=== PATIENT | female | born 1965 | race Asian ===

== ENCOUNTER → 2017-12-29 14:43 | Outpatient (CLI) | payer BC, SELFPAY ==
--- NOTE | 2017-12-29 14:50 | RAD_ITS ---
STUDY: X-RAY - LEFT KNEE REASON FOR EXAM: Female, 52 years old. Left-sided knee pain with swelling. TECHNIQUE: Four view(s) of the knee. COMPARISON: Radiographs of the left knee dated December 29, 2017. FINDINGS: Normal visualized distal femur. Normal visualized proximal tibia and fibula. Normal proximal tibiofibular articulation. There is no demonstrated fracture. There is moderate degenerative arthrosis of the medial femorotibial compartment with moderate joint space narrowing. There is mild degenerative arthrosis of the lateral femorotibial compartment. There is severe degenerative arthrosis of the patellofemoral articulation. There is a soft tissue prominence in the suprapatellar region suggesting a small volume joint effusion. There is mild soft tissue swelling. RAD/Knee 4 or More Views IMPRESSION: Moderately severe degenerative arthropathy of the right knee with small joint effusion. Electronically Signed: Maribell Christianson MD at 9:07 EDT , Service support ,
--- NOTE | 2017-12-29 14:50 | RAD_ITS ---
STUDY: X-RAY - RIGHT KNEE REASON FOR EXAM: Female, 52 years old. Right-sided knee pain and swelling. TECHNIQUE: Four view(s) of the knee. COMPARISON: Radiographs of the left knee dated December 29, 2017. FINDINGS: Normal visualized distal femur. Normal visualized proximal tibia and fibula. Normal proximal tibiofibular articulation. There is no demonstrated fracture. There is moderate degenerative arthrosis of the medial femorotibial compartment with moderate joint space narrowing. There is mild degenerative arthrosis of the lateral femorotibial compartment. There is moderate degenerative arthrosis of the patellofemoral articulation. There is a bone fragment in the suprapatellar bursa measuring approximately 1.5 cm. This may represent intra-articular loose body. There may be small amount of joint effusion. The soft tissue structures are unremarkable. RAD/Knee 4 or More Views IMPRESSION: 1. Moderately severe degenerative arthropathy of the right knee. 2. Probable intra-articular body. Electronically Signed: Maribell Christianson MD at 9:15 EDT , Service support ,
== END ==
PROVIDERS: Family Provider Family Medicine; PCP Family Medicine; Visit Provider Orthopaedic Surgery
DX: M25.561 Pain in right knee (principal); M25.562 Pain in left knee
CPT/HCPCS: 73564

== ENCOUNTER → 2018-12-20 10:30 | Outpatient (CLI) | payer BC, SELFPAY ==
[2018-12-20 10:25] VITALS: BMI 33.3
--- NOTE | 2018-12-20 10:31 | RAD_ITS ---
STUDY: X-RAY - LEFT KNEE REASON FOR EXAM: Female, 53 years old. Left knee pain. TECHNIQUE: 5 view(s) of the knee. COMPARISON: None. FINDINGS: Normal visualized distal femur. Normal visualized proximal tibia and fibula. Normal proximal tibiofibular articulation. There is moderate arthrosis of the medial compartment, mild arthrosis of the lateral compartment and severe arthrosis of the patellofemoral compartment. There is a small effusion with an intra-articular osteochondral body in the suprapatellar pouch measuring approximately 1 cm in widest diameter. The soft tissue structures are unremarkable. RAD/Knee 4 or More Views IMPRESSION: Tricompartmental arthrosis with effusion and intra-articular osteochondral body. Electronically Signed: Fredis Lazo MD at 17:44 EDT , Service support ,
--- NOTE | 2018-12-20 10:31 | RAD_ITS ---
STUDY: X-RAY - RIGHT KNEE REASON FOR EXAM: Female, 53 years old. Right knee pain. TECHNIQUE: 5 view(s) of the knee. COMPARISON: None. FINDINGS: Normal visualized distal femur. Normal visualized proximal tibia and fibula. Normal proximal tibiofibular articulation. There is moderate to severe arthrosis of the medial compartment, mild arthrosis of the lateral compartment and moderate arthrosis of the patellofemoral compartment. There is an intra-articular osteochondral body in the suprapatellar pouch measuring 19 mm in widest diameter. The soft tissue structures are unremarkable. RAD/Knee 4 or More Views IMPRESSION: Tricompartmental arthrosis with intra-articular osteochondral body as described. Electronically Signed: Fredis Lazo MD at 17:46 EDT , Service support ,
[2018-12-20 14:13] LABS: Pathologist Comment May follow
[2018-12-20 14:35] LABS: Synovial Fld Mononuclear WBC % 74.6 %; Synovial Fld Polynuclear WBC # 0.156 10^3/ul; Synovial Fld Polynuclear WBC % 25.4 %
[2018-12-20 15:03] LABS: AUTO B FLUID DILUENT BKGD CT WBC <0.1 RBC <0.01 (W<.1,R<.01)
[2018-12-20 15:05] LABS: Source / Synovial Fluid L KNEE; Source- Body Fluid SYNOVIAL
[2018-12-20 15:06] LABS: Appearance /Synovial Fluid Sl Cl (CLEAR); Color / Synovial Fluid Yellow (Pale Yellow); RBC /Synovial Fluid 223 /mm3 (0)
[2018-12-20 15:24] LABS: Body Fluid QC Type(s) BF1Q,BF2Q,BF3Q; Lymph 12 %; Monocyte /Synovial Fluid 71 %; Neutrophil 11 % (0-25); Plasma Cell /Synovial Fluid 6 %
[2018-12-21 15:22] LABS: GLUCOSE, SYNOVIAL FLUID 103 mg/dL (.); PROTEIN, SYNOVIAL FLUID 3.6 g/dL (.)
[2018-12-22 09:23] LABS: Pathologist Review Reviewed
== END ==
PROVIDERS: Family Provider Family Medicine; PCP Family Medicine; Referring Provider Orthopaedic Surgery; Visit Provider Orthopaedic Surgery
DX: M17.12 Unilateral primary osteoarthritis, left knee (principal); M25.561 Pain in right knee; M25.562 Pain in left knee
CPT/HCPCS: 73564; 82945; 84157; 87070; 87075; 87205; 89050; 89051; 89060

== ENCOUNTER → 2019-11-07 11:28 | Outpatient (CLI) | payer BC, SELFPAY ==
[2018-12-20 10:25] VITALS: BMI 33.3
[2019-11-07 15:16] LABS: Absolute Lymphocyte Count 1.95 X10^3/uL (0.83-4.51); Absolute Neutrophil Count 3.6 X10^3/uL (2.0-7.7); Basophil# 0.03 X10^3/uL; Basophil% 0.5 % (0-1); Eosinophil# 0.26 X10^3/uL; Eosinophils% 4.2 % (0-5); Hematocrit 42.6 % (37-47); Hemoglobin 13.2 g/dL (12.0-15.0); Lymphocyte # 1.95 X10^3/ul (4.0); Lymphocyte % 31.4 % (19-41); Mean Corpuscular Hgb 25.9 pg (27.0-32.0); Mean Corpuscular Volume 83.7 fL (81-99); Mean Platelet Vol. 9.6 fl (6.2-12.0); Monocyte# 0.38 X10^3/uL; Monocyte% 6.1 % (0-10); NRBC Flagged by Analyzer 0 % (0-5); Neutrophil # 3.58 X10^3/uL (2.7-7.7); Neutrophil % 57.6 % (47-70); Platelet Count 282 K/mm3 (150-450); RBC Distribution Width CV 11.9 % (11.6-14.6); Red Blood Count 5.09 M/mm3 (4.2-5.4); White Blood Count 6.2 K/mm3 (4.4-11.0)
[2019-11-07 15:58] LABS: ALB/GLOB Ratio 0.9 RATIO (0.9-2.4); AST(SGOT) 21 U/L (15-37); Alanine Aminotransfer ALT/SGPT 23 U/L (13-56); Albumin, Serum 3.9 g/dL (3.2-5.0); Alkaline Phosphatase 94 U/L (45-117); Anion Gap 5 (5-15); BUN 13 mg/dL (7-18); BUN/Creat Ratio 17.8 RATIO (10-20); Chloride 102 mmol/L (98-107); Cholesterol 184 mg/dL (200); Creatinine, Serum 0.73 mg/dL (0.55-1.02); EST Glomerular Filtration Rate 88 mL/min (>60); Est Glom Filt Rate - Afr Amer 106 mL/min (>60); Globulin 4.3 g/dL (2.2-4.2); Glucose 84 mg/dL (74-106); High Density Lipoprotein 38 mg/dL; Potassium 3.8 mmol/L (3.5-5.1); Protein, Total 8.2 g/dL (6.4-8.2); Sodium Level 137 mmol/L (136-145); Triglycerides 185 mg/dL; Very Low Density Lipoprotein 37 mg/dL (5-40)
== END ==
PROVIDERS: PCP Family Medicine; Referring Provider Dermatology; Visit Provider Dermatology
DX: L30.9 Dermatitis, unspecified (principal)
CPT/HCPCS: 36415; 80053; 80061; 83036; 85025

== ENCOUNTER → 2022-05-12 | Outpatient (CLI) | payer BC, SELFPAY ==
[2022-05-12 11:59] LABS: Basophil# 0.04 X10^3/uL; Basophil% 0.6 % (0-1); Eosinophil# 0.26 X10^3/uL; Eosinophils% 4.2 % (0-5); Hematocrit 42.9 % (37-47); Lymphocyte % 38.6 % (19-41); Mean Corp Hgb Conc 32.6 g/dL (32-36); Mean Corpuscular Hgb 27.9 pg (27.0-32.0); Mean Corpuscular Volume 85.6 fL (81-99); Mean Platelet Vol. 9.6 fl (6.2-12.0); Monocyte# 0.47 X10^3/uL; Monocyte% 7.6 % (0-10); NRBC Flagged by Analyzer 0 % (0-5); Neutrophil # 3.03 X10^3/uL (2.7-7.7); Neutrophil % 48.8 % (47-70); Platelet Count 268 K/mm3 (150-450); RBC Distribution Width SD 37.6 fl (35.1-43.9); Red Blood Count 5.01 M/mm3 (4.2-5.4); White Blood Count 6.2 K/mm3 (4.4-11.0)
[2022-05-12 12:31] LABS: AST(SGOT) 18 U/L (15-37); Alanine Aminotransfer ALT/SGPT 24 U/L (13-56); Albumin, Serum 3.9 g/dL (3.2-5.0); Alkaline Phosphatase 95 U/L (45-117); Anion Gap 7 (5-15); BUN 13 mg/dL (7-18); BUN/Creat Ratio 17.2 RATIO (10-20); Calcium,Total 9.4 mg/dL (8.5-10.1); Chloride 106 mmol/L (98-107); Cholesterol 218 mg/dL (200); Creatinine, Serum 0.76 mg/dL (0.55-1.02); EST Glomerular Filtration Rate 83 mL/min (>60); Est Glom Filt Rate - Afr Amer 101 mL/min (>60); Glucose 81 mg/dL (74-106); High Density Lipoprotein 42 mg/dL; Potassium 3.5 mmol/L (3.5-5.1); Protein, Total 7.9 g/dL (6.4-8.2); Sodium Level 143 mmol/L (136-145); Triglycerides 225 mg/dL; Very Low Density Lipoprotein 45 mg/dL (5-40)
== END | disposition home or self-care (01) ==
LOC: BIMLAB 09:28
PROVIDERS: PCP Family Medicine; Visit Provider Internal Medicine
DX: Z00.00 Encounter for general adult medical examination without abnormal findings (principal)
CPT/HCPCS: 36415; 80053; 80061; 85025

== ENCOUNTER → 2022-10-26 | Outpatient (CLI) | payer BC, SELFPAY ==
[2022-10-30 15:24] LABS: HPV APTIMA, High Risk Negative (Negative)
== END | disposition home or self-care (01) ==
LOC: LABSPEC 12:17
PROVIDERS: PCP Internal Medicine; Referring Provider Nurse Practitioner Women's Health; Visit Provider Nurse Practitioner Women's Health
DX: Z12.4 Encounter for screening for malignant neoplasm of cervix (principal)
CPT/HCPCS: 87624; 88175; G0145

== ENCOUNTER → 2022-11-03 | Outpatient (CLI) | payer BC, SELFPAY ==
--- NOTE | 2022-11-03 10:41 | BI_ITS ---
MAMMOGRAPHY - BILATERAL SCREENING 3-D TOMOSYNTHESIS REASON FOR EXAM: Female, 57 years old. Routine screening PERTINENT HISTORY: No significant family history. TECHNIQUE: 2-D mammograms and 3-D Tomosynthesis of the breast (s) were performed. CAD was performed. COMPARISON: 2017 FINDINGS: The breast composition is composed of scattered fibroglandular density. Scattered benign calcifications are seen. No dense spiculated masses or suspicious microcalcifications are identified. No architectural distortion is identified. There is no skin thickening or retraction. There has been no significant change since the prior study. BI/SCRN MAMM (CAD)W/RODERICK BILAT IMPRESSION: No mammographic signs of malignancy. Routine yearly mammograms recommended. ASSESSMENT CATEGORY: BIRADS Category 1: Negative. A letter regarding these results will be sent to the patient by the facility within 30 days. FOLLOW UP RECOMMENDATION: Yearly follow up mammogram recommended. (A) Approximately 10% of breast cancers are not detected by mammography. A normal mammogram should not delay biopsy of a clinically suspicious abnormality. Electronically Signed: Cristóbal Olivo MD at 11:45 EDT ,
== END | disposition home or self-care (01) ==
LOC: OPBI 10:39
PROVIDERS: PCP Internal Medicine; Visit Provider Internal Medicine
DX: Z12.31 Encounter for screening mammogram for malignant neoplasm of breast (principal)
CPT/HCPCS: 77063; 77067

== ENCOUNTER → 2022-11-09 | Outpatient (CLI) | payer BC, SELFPAY ==
--- NOTE | 2022-11-09 | EMB_PTH ---
PATIENT: JEREMIAS VALENTIN LOC: [facility] #:[id number] AGE/SX: 57/F ROOM: RE11/09/[address]: NAVARRO Bourne : 1965 BED: DIS: 11/09/2022 SPEC #: [id number] RECD: 11/09/22 10:55 STATUS: PRERNA MEJIA #: [id number] AUTUMN: 11/09/22 00:[address]: Tsesa Overton NP DEPT: SURGICAL PATHOLOGY RECD BY: Micheal Menard ENTERED: 11/09/22 10:55 SP TYPE: ENDOM BX/C SUDHAKAR DR: Dr. Anuja Lorenzana MD Tissues: Endometrium, NOS Procedures: Surgery Specimen Level IV HEADER OPERATION: Endometrial biopsy PRE-OP DIAGNOSIS: Endometrial cells on pap TISSUE SUBMITTED: Endometrial lining MICROSCOPIC DIAGNOSIS Endometrial biopsy: Superficial fragments of benign endometrial tissue. Fragments of benign endocervical epithelium and mucous. See comment. SJ:ramin 11/10/2022 COMMENT The specimen predominantly consists of mucous. Correlation with clinical findings and appropriate follow up are necessary. MICROSCOPIC DESCRIPTION Slides are reviewed. GROSS DESCRIPTION Received is one container labeled with the patient's name and not further designated. The specimen consists of multiple irregular fragments of pink-mills soft tissue that in aggregate measure 2.5 x 2.0 x 0.2 cm. The specimen is totally submitted in one cassette. / AM:ramin 11/09/2022 TC:4 CPT: 70722
== END | disposition home or self-care (01) ==
LOC: LABSPEC 10:31
PROVIDERS: PCP Internal Medicine; Visit Provider Nurse Practitioner Women's Health
DX: R87.618 Other abnormal cytological findings on specimens from cervix uteri (principal)
CPT/HCPCS: 88305

== ENCOUNTER → 2022-11-21 | Outpatient (CLI) | payer BC, SELFPAY ==
--- NOTE | 2022-11-21 10:37 | US_ITS ---
EXAM: US PELVIS TRANSABDOMINAL AND TRANSVAGINAL, COMPLETE CLINICAL INDICATION: bleeding TECHNIQUE: Transabdominal and transvaginal pelvic ultrasound was performed with grayscale and color Doppler imaging. Transvaginal imaging was used for better evaluation of the endometrium and adnexa. This report was created using [employer] report [employer] technology. COMPARISON: None. FINDINGS: UTERUS/CERVIX: Very echogenic well circumscribed intramural mass that measures 2 cm in diameter in the posterior body of the uterus. No significant vascularity with Doppler imaging. The uterus measures 9.1 x 8.0 x 4.8 cm. The endometrial stripe measures 0.7 cm in thickness which is abnormal for patient''s age. Anteverted. RIGHT OVARY: Unremarkable. Blood flow is present in the right ovary. The right ovary measures 3.4 x 3.2 x 2.4 cm. LEFT OVARY: Left ovary not visualized. FREE FLUID: None. BLADDER: Unremarkable as visualized. Wall is normal thickness for degree of distention. US/Pelvic (Non ) IMPRESSION: 1. The uterus measures 9.1 x 8.0 x 4.8 cm. The endometrial stripe measures 0.7 cm in thickness which is thickened for patient''s age. Please correlate with menstrual status. If patient is postmenopausal, findings could be due to endometrial hyperplasia or endometrial cancer. Consider gynecology consultation. 2. Very echogenic well circumscribed intramural mass measuring 2 cm in the posterior body of the uterus. 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 A calcified leiomyoma may have this appearance but typically has more shadowing. Consider CT or MR for further evaluation. Electronically Signed: Darren Guzmán MD at 7:35 EDT ,
--- NOTE | 2022-11-21 10:37 | US_ITS ---
EXAM: US PELVIS TRANSABDOMINAL AND TRANSVAGINAL, COMPLETE CLINICAL INDICATION: bleeding TECHNIQUE: Transabdominal and transvaginal pelvic ultrasound was performed with grayscale and color Doppler imaging. Transvaginal imaging was used for better evaluation of the endometrium and adnexa. This report was created using [employer] report [employer] technology. COMPARISON: None. FINDINGS: UTERUS/CERVIX: Very echogenic well circumscribed intramural mass that measures 2 cm in diameter in the posterior body of the uterus. No significant vascularity with Doppler imaging. The uterus measures 9.1 x 8.0 x 4.8 cm. The endometrial stripe measures 0.7 cm in thickness which is abnormal for patient''s age. Anteverted. RIGHT OVARY: Unremarkable. Blood flow is present in the right ovary. The right ovary measures 3.4 x 3.2 x 2.4 cm. LEFT OVARY: Left ovary not visualized. FREE FLUID: None. BLADDER: Unremarkable as visualized. Wall is normal thickness for degree of distention. US/Transvaginal Non- IMPRESSION: 1. The uterus measures 9.1 x 8.0 x 4.8 cm. The endometrial stripe measures 0.7 cm in thickness which is thickened for patient''s age. Please correlate with menstrual status. If patient is postmenopausal, findings could be due to endometrial hyperplasia or endometrial cancer. Consider gynecology consultation. 2. Very echogenic well circumscribed intramural mass measuring 2 cm in the posterior body of the uterus. 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 A calcified leiomyoma may have this appearance but typically has more shadowing. Consider CT or MR for further evaluation. Electronically Signed: Darren Guzmán MD at 7:35 EDT ,
== END | disposition home or self-care (01) ==
LOC: US 10:36
PROVIDERS: PCP Internal Medicine; Referring Provider Nurse Practitioner Women's Health; Visit Provider Nurse Practitioner Women's Health
DX: N95.0 Postmenopausal bleeding (principal)
CPT/HCPCS: 76830; 76856

== ENCOUNTER → 2023-04-20 | Outpatient (CLI) | payer BC, SELFPAY ==
--- NOTE | 2023-04-20 08:22 | CT_ITS ---
STUDY: CT RIGHT KNEE WITHOUT CONTRAST REASON FOR EXAM: Female, 57 years old. Templating for right TKA RADIATION DOSAGE (If Supplied By Facility): CTDIvol = ( 19.15 ) mGy, DLP = ( 1208.55 ) mGycm TECHNIQUE: Transaxial CT imaging of the knee was performed utilizing during replacement protocol with localizing images at the hip and ankle. Coronal and sagittal images were reformatted. Individualized dose optimization techniques were used for this CT. COMPARISON: None. FINDINGS: There is moderate spurring of the medial femoral condyle and medial tibial plateau. There is severe narrowing of the articular joint space of the medial knee compartment. There is moderate spurring of the lateral femoral condyle and lateral tibial plateau. There is mild narrowing of the articular joint space of the lateral knee compartment. Normal proximal tibiofibular articulation. There is moderate joint effusion. There is loose body in the suprapatellar region. There is moderate patellofemoral joint space narrowing and spurring. The quadriceps tendon is grossly normal. The patellar tendon is grossly normal. Normal Hoffa''s fat pad. The soft tissues are unremarkable. CT/Extremity Lower without Contra IMPRESSION: Degenerative change. Joint effusion with loose body. Electronically Signed: Mitchell Monterroso MD at 23:42 EDT ,
== END | disposition home or self-care (01) ==
PROVIDERS: PCP Internal Medicine; Referring Provider Orthopaedic Surgery; Visit Provider Orthopaedic Surgery
DX: M17.11 Unilateral primary osteoarthritis, right knee (principal)
CPT/HCPCS: 73700

== ENCOUNTER 2023-05-04 05:33 | Day surgery (SDC) | payer BC, SELFPAY ==
--- NOTE | 2023-04-27 07:46 | EKG12_ITS ---
Test Reason : PRE OP Blood Pressure : / mmHG Vent. Rate : 068 BPM Atrial Rate : 068 BPM P-R Int : 142 ms QRS Dur : 084 ms QT Int : 358 ms P-R-T Axes : 067 079 064 degrees QTc Int : 380 ms Normal sinus rhythm Septal infarct , age undetermined Abnormal ECG Confirmed by SHAYNA STALLINGS, SAWYER ([id number]), news copy editor ELIN MOORE ([id number]) on 04/30/2023 11:41:34 AM Referred By: Ike Mo Confirmed By:SAWYER CORRAL MD
[2023-04-27 08:53] LABS: Absolute Lymphocyte Count 2.48 X10^3/uL (0.83-4.51); Absolute Neutrophil Count 4.1 X10^3/uL (2.0-7.7); Basophil# 0.04 X10^3/uL; Basophil% 0.5 % (0-1); Eosinophil# 0.28 X10^3/uL; Eosinophils% 3.8 % (0-5); Hematocrit 42.7 % (37-47); Hemoglobin 13.7 g/dL (12.0-15.0); Lymphocyte # 2.48 X10^3/ul (0.83-4.51); Lymphocyte % 33.6 % (19-41); Mean Corp Hgb Conc 32.1 g/dL (32-36); Mean Corpuscular Hgb 27.2 pg (27.0-32.0); Mean Corpuscular Volume 84.7 fL (81-99); Mean Platelet Vol. 8.7 fl (6.2-12.0); Monocyte# 0.45 X10^3/uL; Monocyte% 6.1 % (0-10); NRBC Flagged by Analyzer 0 % (0-5); Neutrophil # 4.11 X10^3/uL (2.7-7.7); Neutrophil % 55.6 % (47-70); Platelet Count 289 K/mm3 (150-450); RBC Distribution Width CV 11.9 % (11.6-14.6); Red Blood Count 5.04 M/mm3 (4.2-5.4); White Blood Count 7.4 K/mm3 (4.4-11.0)
[2023-04-27 09:00] LABS: Prothrombin Time (Protime)PT. 12.7 SECONDS (11.7-14.9)
[2023-04-27 09:01] LABS: Partial Thromboplast Time 27.6 Seconds (24.1-36.2)
[2023-04-27 09:24] LABS: Anion Gap 4 (5-15); BUN 12 mg/dL (7-18); BUN/Creat Ratio 16.4 RATIO (10-20); Calcium,Total 9.1 mg/dL (8.5-10.1); Chloride 106 mmol/L (98-107); Creatinine, Serum 0.73 mg/dL (0.55-1.02); EST Glomerular Filtration Rate 86 mL/min (>60); Est Glom Filt Rate - Afr Amer 105 mL/min (>60); Glucose 109 mg/dL (74-106); Magnesium 2.1 mg/dL (1.6-2.6); Potassium 3.6 mmol/L (3.5-5.1); Sodium Level 140 mmol/L (136-145)
[2023-04-27 11:59] LABS: Hemoglobin A1c 5.8 % (3.8-5.6)
[2023-04-28 04:07] LABS: Fructosamine 233 umol/L (0-285)
[2023-05-04] VITALS (11 sets, daily range): BP systolic 94–140; BP diastolic 57–76; PULSE 61–82; RESP 16–18; TEMP 36.4–36.6; O2SAT 97–100; BMI 34.6
--- NOTE | 2023-05-04 | KNEE_PTH ---
PATIENT: JEREMIAS VALENTIN [place] [facility] [place][id number] AGE/SX: 57/F ROOM: RE05/04/[address]: Dr. Ike Mo DO : 1965 BED: DIS: 05/04/2023 SPEC #: [id number] RECD: 05/04/23 12:30 STATUS: PRERNA RECeasar #: [id number] AUTUMN: 05/04/23 00:[address]: Ike Mo DEPT: SURGICAL PATHOLOGY RECD BY: Micheal Menard ENTERED: 05/04/23 12:30 SP TYPE: TOTAL KNEE OTHR DR: Dr. Anuja Lorenzana MD Tissues: Knee, NOS Procedures: Decalcification bone/plaque Surgery Specimen Level IV HEADER OPERATION: KELVIN, right knee arthroplasty robotic assisted PRE-OP DIAGNOSIS: Right knee degenerative joint disease TISSUE SUBMITTED: Bone and soft tissue right knee MICROSCOPIC DIAGNOSIS Bone and tissue of right knee, total knee resection: Severe degenerative joint disease. AM:ramin 05/07/2023 MICROSCOPIC DESCRIPTION Slides are reviewed. GROSS DESCRIPTION Received is one container designated bone and soft tissue right knee. The specimen consists of multiple fragments of mills-yellow bone measuring in aggregate 10.0 x 8.0 x 3.0 cm. Also in the specimen container are multiple fragments of predominantly fibrocartilaginous tissue measuring in aggregate 8.5 x 4.0 x 1.5 cm. A number of bony fragments contain articular surfaces consistent with tibial plateau and femoral condyle and displaying prominent osteophyte formation, eburnation and bone erosion. Air Grinder sections are submitted in two cassettes as follows: 1 - soft tissue, 2 - bone after decalcification. / SJ:ramin 05/04/2023 TC:5 [facility]: [id number], [id number]
[2023-05-04] MEDS: Magnesium 1 GM over 15 mins IV (06:30)
[2023-05-04 06:34] LABS: Bedside Glucose 224 mg/dL (74-106)
[2023-05-04] MEDS: Lactated Ringers 1,000 ML 15 ML IV (06:40)
[2023-05-04] MEDS: Gabapentin 600 MG Tablet PO (06:41)
[2023-05-04] MEDS: Acetaminophen 500 MG Tablet 1000 MG PO (06:41)
[2023-05-04] MEDS: Scopolamine 1mg/72hr Patch 1 PATCH TD (06:42)
[2023-05-04] MEDS: Insulin Lispro 100 UNIT/ML INSULN.PEN SC (06:44)
--- NOTE | 2023-05-04 07:04 | PCM.HP.BLA ---
History and Physical Date of Admission: 05/04/23 [facility] [address] [place] [address] OFFICE VISIT Date of Service: 04/02/23 MR#: [id number] Acct: [id number] Name: JEREMIAS VALENTIN Rep #: [id number] : 1965 Provider: Dr. Ike Mo DO Age/Sex: 57/F Location[place] [facility] [place] Status: Signed Intake Vital Signs 12/24/2310:11 04/02/2310:58 Height 5 ft 3.5 in 5 ft 3.5 in Weight: 208 lb 208 lb BMI 36.2 36.2 BP 145/85 H Intake Visit Reasons: BL KNEES Chief Complaint: bilateral knee pain Is patient in pain?: Yes (bilateral knees) Pain scale (1-10): 9 Allergies No Known Allergies Allergy (Verified 04/02/23 10:59) Medications glucosamine HCl 500 mg tablet 500 mg PO BID 12/29/17 [History Confirmed 12/24/22] naproxen sodium 220 mg capsule (Aleve) 220 mg PO BID PRN 05/12/22 [History Confirmed 12/24/22] estradiol 0.01% (0.1 mg/gram) vaginal cream See Rx Instructions vaginal .COMPLEX #42.5 grams 11/09/22 [Rx Confirmed 12/24/22] PFSH Medical History Arthritis Colon cancer screening Surgical History H/O: Family History Mother DiabetesBrother DiabetesOther Arthritis Social History household members: spouse housing: house number of children: 2 current occupational status: employed Smoking Status: Never smoker alcohol intake: current alcohol intake frequency: holidays/special occasions only Alcohol type: wine substance use type: does not use what type of physical activity do you participate in: none seatbelt use: always do you feel safe at home: Yes additional social history: MAURICE GAMBLE BL KNEES Chief Complaint: bilateral knee pain Details: Parts of this documentation were recorded by a scribe, this documentation accurately reflects the service provided and the decisions made by me, Dr. Ike Mo, DO 04/02/23 1050. JEREMIAS VALENTIN is a 57 year old F here today for bilateral knee pain. Her left is worse at this time.She had bilateral knee steroid injections 01-01-23 which were effective for about 2 months. She advises her knees continue to pop, click and occasionally will give out. She continues to take aleve, apply ice and bio-freeze to help with pain. Ortho Exam General General: Yes no acute distress Neurologic: Yes alert and Yes oriented x3 Psychologic: Yes reasonable and appropriate Right Knee Skin/Wound: Yes CDI, No erythema, No ecchymosis and No swelling Knee ROM: Yes ROM-Extension -20 to 0 (-10) and Yes ROM-Flexion 0-140 (108) Examination: Yes Med jt line tenderness and Yes Lat jt line tenderness Stability: NML: Anterior Drawer, NML: Posterior Drawer, NML: Valgus 30 and NML: Varus 30 Patella Translation: 1 Left Knee Skin/Wound: Yes CDI, No ecchymosis, No erythema and Yes swelling 1+: Effusion Knee ROM: Yes ROM-Extension -20 to 0 (-8) and Yes ROM-Flexion 0-140 (114) Examination: Yes med jt line tenderness and Yes Lat jt line tenderness Stability: NML: Anterior Drawer, NML: Posterior Drawer, NML: Valgus 30 and NML: Varus 30 Patella Translation: 1 KNEE: good ankle range of motion. no ankle pain. good pulses 2/4 Head: Normocephalic Atraumatic Chest: symmetrical rise, non-labored breathing, no audible wheeze Abdomen: no guarding, non-rigid Supplemental Info 09/30/2020 x-ray bilateral knees advanced tricompartmental knee arthrosis [id number] medial compartment with varus deformity Coding Level of Care Code Off vis,est,level 3 Diagnoses Primary osteoarthritis of left knee M17.12 Osteoarthritis type: primary Primary osteoarthritis of right knee M17.11 Osteoarthritis type: primary Assessment and Plan Assessment and Plan (1) Left knee DJD: Status: Acute Qualifiers: Osteoarthritis type: primary Qualified Code(s): M17.12 - Unilateral primary osteoarthritis, left knee (2) Right knee DJD: Status: Acute Qualifiers: Osteoarthritis type: primary Qualified Code(s): M17.11 - Unilateral primary osteoarthritis, right knee Plan Spoke with the patient about the anatomy of the knee and etiology of her pain. Spoke with her about having osteoarthritis of her knees. Explained her options- viscosupplementation injections vs a total knee arthroplasty. Spoke with the patient about the surgery procedure, risks and recovery. Explained the risk of stiffness and the importance of physical therapy. She might have a mechanical feel post op. Spoke with her about the lengthy time it takes to fully heal and she likely will be happy around 3 months but will take 2 years to fully recover. She will need medical clearance. Spoke with her about the iovera procedure. Explained the procedure helps with the surgery pain and decreases narcotic use post op. She will need a CT scan of her right knee. Risks, benefits and alternatives of surgery reviewed including but not limited to bleeding, infection, nerve, artery and/or tissue damage, fracture, VTE, mechanical feel of the knee, continued pain, stiffness and expected post-operative course. Patient wanted to have the surgery on her right knee. She wanted to have visco injections on her left knee. Follow up for iovera or sooner if pain, swelling, numbness or associated symptoms, or concerns develop. All questions answered. Patient in agreement of plan. 04/02/23 1121 <Electronically signed by Ike Mo DO> Date Ike Mo DO Cosigner Signature: Date (if applicable) CC: ~ I have examined the patient and the H&P has been reviewed. There are no clinical changes since date of exam.
[2023-05-04] MEDS: 0.9% Normal Saline (Pres. free 10 ML Vial (07:23)
[2023-05-04] MEDS: Lactated Ringers 1,000 ML 125 ML IV (07:30)
[2023-05-04] MEDS: Cefazolin 2 GM in 0.9% Normal Saline (100mL Bag) 100 ML IV (07:50)
[2023-05-04] MEDS: TXA 1000mg in NS100 100ml (IVPB at Incision) 660 MG IV (08:00)
[2023-05-04] MEDS: dexAMETHasone 10 MG/ML Vial IV (08:00)
[2023-05-04] MEDS: dexAMETHasone 4 MG/ML Vial (09:23)
[2023-05-04] MEDS: Epinephrine (1 mg/ml) 1 MG/ML VIAL (09:23)
[2023-05-04] MEDS: Bupivacaine 0.5% PF 10 ML VIAL (09:23)
[2023-05-04] MEDS: TXA 1000mg in NS100 100ml (IVPB at Closure) 660 MG IV (09:27)
--- NOTE | 2023-05-04 10:08 | PCM.OP.BLANK ---
Operative Report Date of Procedure: 05/04/23 Preoperative diagnosis: Right knee DJD Postoperative diagnosis: Same Procedure: Right total knee arthroplasty CT guided Robotic Assisted Implant: [place] triathlon press fit, femoral component size 2, tibial baseplate size 3, asymmetric patella size 35, polyethylene X3 size 9 CS Anesthesia: Spinal with adductor canal block Tourniquet time: 15 minutes at 300 mmHg Complications: None Condition: Stable to PACU Estimated blood loss: 200 cc Pneumatic Tube Operator John Warner. My physician triage assistant was a vital part of this case. He was important in appropriate retraction during the case, and protection of soft tissues during procedure. His intimate knowledge of the case and my steps aided in safe and expedient completion of the procedure as well as appropriate position of the extremity during the case. He was also vital in assisting with closure under my direct supervision. Indication for procedure: This is a 57-year-old female with long standing degenerative joint disease of the knee who has failed conservative treatment and wished to proceed with elective total knee arthroplasty. Risk benefits and alternatives were reviewed including; risk of bleeding, infection, nerve artery and tissue damage, continued pain, postoperative stiffness, venous thromboembolism, need for postoperative rehabilitation, mechanical feel to the knee, and expected postoperative course. The pre- operative CT and templating was performed with component sizing. Procedure: The patient was met in the preoperative holding area. The operative extremity was identified by both patient and physician and was marked. Patient was met by anesthesia. An adductor canal block was placed by anesthesia postoperatively the patient was brought back to the operating room on a wheeled cart and transferred to the operating table in the supine position. Anesthesia was started. A well-padded tourniquet was placed on the operative extremity. The patient was prepped and draped in the usual sterile fashion. A timeout was called to ensure the proper patient procedure and extremity were being contemplated. An esmarch was used to exsanguinate the extremity. The tourniquet was inflated. A 10 blade scalpel was used to make a midline incision down through the skin and subcutaneous tissue. Skin retractors placed. Bovie and Aquamantis were used to perform meticulous hemostasis. full-thickness flaps were elevated medial and lateral along the joint capsule. A deep blade scalpel was used to perform a medial parapatellar arthrotomy. The knee was brought to full extension. A bovie was used to release the soft tissues off the most proximal aspect of the medial tibial plateau, a three-quarter inch curved osteotome was also used in this process. The infrapatellar fat pad was excised. The suprapatellar fat pad was excised partially anteriorolateraly and portion the anterioromedial pad was elevated from the femur. At this point our intra-articular femoral array was placed at a 45 degree angle proximal and posterior to the medial epicondyle. femoral checkpoint was placed at this time. Our tibial array was placed greater than 1 hands breath below the incision at a 20 degree angle stab incisions were made with a 15 blade scalpel and pins were placed and attached to the tibial array , tibial checkpoint was placed in the proximal tibial metaphysis. Tourniquet was let down. At this point registration medina were taken throughout the knee . Once the knee was registered we then tensioned the medial and lateral ligaments in extension and 90 degrees of flexion. We then used these numbers to adjust our components within parameters to balance the knee in both flexion and extension once this was done on our monitor we then proceeded with using the robotic arm to make our tibial plateau cut, anterior and posterior chamfer and distal femur cuts. we removed the cut fragments with the use of a bovie and Kayla, we did use a lamina therapy assistant to insure we visualized and removed all posterior osteophytes and at this time also used the Aquamantis on the posterior joint capsule. we then trialed and achieved the desired plan with a well-balanced knee. we used the green probe to harika the corresponding tibial rotation based on our CT template. Lug holes were drilled in the femur the tibia preparation was completed with the appropriate sized base plate pinned based on previous rotation harika. An appropriate sized fin punch was used on the tibia and 4 corner drill was used for the press fit component and the patella was prepared by first using a caliper to ensure sufficient bone stock and a patellar reamer to remove the desired amount of bone. lug holes drilled for an asymmetric poly. We then brought the knee through range of motion with excellent patellar tracking. We thoroughly irrigated the knee. Trial components were removed a posterior capsular injection was preformed with our standard cocktail. In addition the aqua Mantis was also used to aid in hemostasis. Betadine rinse was allowed to sit and washed out completely. Components were press-fit into place. Aricept rinse was then used followed by several more liters of irrigation after it was allowed to sit. The joint capsule was closed with #1 Ethibond [id number]'s followed by Vicryl in the subcutaneous tissues with papito in the skin. Arrays and checkpoints were removed prior to closure all counts were correct stab incisions were closed with a staple standard dressing in the form of Mepilex AG for the main incision and a small Mepilex over the pin holes. Thigh-high EMILY hose applied over top of dressing. Patient tolerated the procedure well and was directed to PACU in stable condition . There were no intraoperative complications.
--- NOTE | 2023-05-04 10:11 | DCINST_ITS ---
Discharge Instructions Diet Discharge Diet: No restrictions (Limit sweets and carbs as high sugar diet can increase risk of infection) Activity Weight Bearing Status: Weight bearing as tolerated Dressing / Incision Call your doctor if you observe: Shortness of breath and Chest pain Additional Dressing/Incision Instructions:: Ice and elevate lower extremities 2 weeks while not ambulating. Ambulation is encouraged. Weight bearing as tolerated. Use assistive devise for stability. Encourage FULL knee extension and flexion 1 time EVERY time you get up and down and MULTIPLE times per day. No showering 72 hours after surgery. Begin showering postop day #3. Remove the dressing prior to shower and gently wash with warm water and antibacterial soap then pat dry and place abdominal pad (or plain gauze) and EMILY hose over top. This is to be done daily. Do not submerge for 3 weeks. If not showering daily after the initial 72 hours then you must clean incision and change dressing daily. Do not allow animals near the incision area. Keep clean. Follow anti- coagulation recommendations as prescribed. Do not take any NSAIDs while on blood thinner. Do not take any additional narcotic pain medication other than what was prescribed on your surgery day without discussing with physician. Narcotic medication can be addictive. Do not drink alcohol while taking narcotics. Supplement narcotic prescription with acetaminophen 1000 mg 4 times a day. Start physical therapy. If you are not currently scheduled for physical therapy or you are unsure of appointment time please call office [facility] to alexandro luis. Call Dr. Mo with any concerns. Follow Up Care Please Follow Up With: Ike Mo DO When: 2 weeks Test Results: Test results from this visit will be discussed in further detail at your follow- up appointment, if applicable. Discharge Plan Admission Primary Reason for Your Visit: Right total knee arthroplasty Attending Provider: Ike oM Primary Care Provider: Anuja Lorenzana Discharge Orders/Prescriptions Prescriptions: New acetaminophen [acetaminophen] 500 mg tablet 1,000 mg PO Q6H PRN Qty: 100 0RF cephalexin [cephalexin] 500 mg capsule 1,000 mg PO Q8 Qty: 4 0RF Rx Instructions: take 2 tabs at 9:00 pm and 2 tabs after 5 am when you wake up Eliquis 2.5 mg tablet 2.5 mg PO BID Qty: 28 0RF oxycodone 5 mg tablet 5 - 10 mg PO Q4H PRN (Reason: pain) 7 Days Qty: 60 0RF Continued glucosamine HCl 500 mg tablet 500 mg tablet 500 mg PO BID triamcinolone acetonide [Kenalog] 40 mg/mL suspension 80 mg INTRAARTIC ONCE Qty: 2 0RF estradiol 0.01 % (0.1 mg/gram) cream See Rx Instructions vaginal .COMPLEX Qty: 42.5 2RF Rx Instructions: small amount as directed vaginal every other day X 4 weeks then twice a week; Discontinued naproxen sodium [Aleve] 220 mg capsule 220 mg PO BID PRN (Reason: pain) Referrals / Follow Up: Anuja Lorenzana MD [Primary Care Provider] - Disposition Disposition (needs filled in before D/C Order can be placed): Home, Self Care
--- NOTE | 2023-05-04 10:50 | RAD_ITS ---
STUDY: X-RAY - RIGHT KNEE REASON FOR EXAM: Female, 57 years old. Postop replacement surgery TECHNIQUE: 2 view(s) of the knee. COMPARISON: 09/30/2020 FINDINGS: Patient is postop from right knee replacement surgery. Components demonstrate anatomic alignment. No plain film evidence of postoperative complication. Normal postoperative soft tissue swelling and subcutaneous emphysema. RAD/Knee 1 or 2 Views IMPRESSION: Replaced right knee joint demonstrates anatomic alignment. No plain film evidence of hardware complication or failure Electronically Signed: Cristóbal Olivo MD at 17:01 EDT ,
[2023-05-04 11:04] LABS: Bedside Glucose 104 mg/dL (74-106)
[2023-05-04] MEDS: Cefazolin 1 GM/50 ML BAG IV (12:30)
[2023-05-04] MEDS: oxyCODONE 5 MG Tablet PO (14:06)
== END 2023-05-04 14:49 | disposition home or self-care (01) ==
LOC: SDC 05:33 → AC 05:33
PROVIDERS: Anesthesiology; PCP Internal Medicine; Referring Provider Orthopaedic Surgery; Visit Provider Orthopaedic Surgery
PROC: 0SRC0JZ Replacement of Right Knee Joint with Synthetic Substitute, Open Approach (ICD-10-PCS; CPT 27447; principal; 2023-05-04 07:45)
DX: M17.0 Bilateral primary osteoarthritis of knee (principal); Z79.01 Long term (current) use of anticoagulants; Z79.899 Other long term (current) drug therapy
CPT/HCPCS: 27447; S2900; 64447; 01402; 36415; 73560; 80048; 82962; 82985; 83036; 83735; 85025; 85610; 85730; 86850; 86900; 86901; 87077; 87081; 88305; 88311; 93005; C1776; J7120; J2405; J3475; J3490

== ENCOUNTER 2023-06-15 13:07 | Day surgery (SDC) | payer BC, SELFPAY ==
[2023-06-15 13:39] VITALS: BP 138/86; PULSE 89; RESP 17; TEMP 37.1; O2SAT 99; BMI 34.2
[2023-06-15] MEDS: Lactated Ringers 1,000 ML 15 ML IV (13:45)
--- NOTE | 2023-06-15 14:36 | PCM.HP.BLA ---
History and Physical Date of Admission: 06/15/23 [facility] [address] [place] [address] OFFICE VISIT Date of Service: 06/14/23 MR#: [id number] Acct: [id number] Name: JEREMIAS VALENTIN Rep #: [id number] : 1965 Provider: Dr. Ike Mo DO Age/Sex: 57/F Location: [facility] Status: Signed Intake Vital Signs 04/02/2310:58 05/04/2306:48 Height 5 ft 3.5 in 5 ft 5 in Intake Visit Reasons: right knee Chief Complaint: R knee post op f/u Is patient in pain?: Yes Pain scale (1-10): 1 Allergies No Known Allergies Allergy (Verified 06/14/23 09:58) Medications glucosamine HCl 500 mg tablet 500 mg PO BID 12/29/17 [History Confirmed 06/14/23] estradiol 0.01% (0.1 mg/gram) vaginal cream See Rx Instructions vaginal .COMPLEX #42.5 grams 11/09/22 [Rx Confirmed 06/14/23] acetaminophen 500 mg tablet 1,000 mg (2 x 500 mg) PO Q6H PRN #100 tabs 05/04/23 [Rx Confirmed 06/14/23] cephalexin 500 mg capsule 1,000 mg (2 x 500 mg) PO Q8 #4 caps 05/04/23 [Rx Confirmed 06/14/23] PFSH Medical History Alcohol use Arthritis Colon cancer screening Heartburn History of edema Leg cramps Non-smoker Post-menopausal Wears glasses Wears partial dentures Surgical History H/O: Hx of total knee arthroplasty Family History Mother DiabetesBrother DiabetesOther Arthritis Social History household members: spouse housing: house number of children: 2 current occupational status: employed Smoking Status: Never smoker alcohol intake: current alcohol intake frequency: holidays/special occasions only Alcohol type: wine substance use type: does not use what type of physical activity do you participate in: none seatbelt use: always do you feel safe at home: Yes additional social history: MAURICE SAVANAH GAMBLE right knee Details: Parts of this documentation were recorded by a scribe, this documentation accurately reflects the service provided and the decisions made by me, Dr. Ike Mo, DO 06/14/23 0819. JEREMIAS VALENTIN is a 57 year old F here today for 6 week f/u from Rt total knee arthroplasty. Pt rates her pain a 2/10 and is only taking Tylenol prior to PT. Pt has 4 more session of physical therapy to get to 120 degres. Ortho Exam General General: Yes no acute distress Neurologic: Yes alert and Yes oriented x3 Psychologic: Yes reasonable and appropriate Right Knee Skin/Wound: No erythema, No ecchymosis and No swelling Knee ROM: No ROM-Extension -20 to 0 (12), No ROM-Flexion 0-140 (80) and Yes ROM-Passive Flexion 0-140 (lacking 10) Stability: NML: Valgus 0, NML: Valgus 30, NML: Varus 0 and NML: Varus 30 Head: Normocephalic Atraumatic Chest: symmetrical rise, non-labored breathing, no audible wheeze Abdomen: no guarding, non-rigid Supplemental Info 06/14/2023 x-ray right knee: Status post press-fit total knee arthroplasty 09/30/2020 x-ray bilateral knees advanced tricompartmental knee arthrosis [id number] medial compartment with varus deformity Coding Level of Care Code Global Post Op Diagnoses Orthopedic aftercare Z47.89 Stiffness of right knee M25.661 Fibrosis of right knee joint M24.661 Laterality: right Other acute postprocedural pain G89.18 Assessment and Plan Assessment and Plan (1) Orthopedic aftercare: Status: Acute (2) Stiffness of right knee: (3) Arthrofibrosis of knee joint: Status: Acute Qualifiers: Laterality: right Qualified Code(s): M24.661 - Ankylosis, right knee (4) Other acute postprocedural pain: Status: Acute Orders: Orders Knee 4 or More Views Today Z47.89 - Encounter for other orthopedic aftercare Plan Patient is 6 weeks out from total knee arthroplasty her pain is doing well however she has not progressed as we would have hoped in terms of her range of motion she is lacking in both flexion and extension. Discussed a manipulation under anesthesia with intra-articular knee injection due to her lack of motion and discussed and pain medication post manipulation. Discussed risks of manipulation including fracture and increased pain. Follow-up 4 weeks postop resume physical therapy immediately after manipulation. Patient states she has enough oxycodone and does not need another prescription at this time follow-up sooner if pain, swelling, numbness or associated symptoms, or concerns develop. All questions answered. Patient in agreement of plan. 06/14/23 1137 <Electronically signed by Ike Mo DO> Date Ike Mo DO Cosigner Signature: Date (if applicable) CC: ~ I have examined the patient and the H&P has been reviewed. There are no clinical changes since date of exam.
[2023-06-15] MEDS: Lidocaine 1% /Epi 1:100 (20ml) 20 ML Vial (14:52)
[2023-06-15] MEDS: MethylPREDNISolone Acetate 40 MG/ML Vial IM (14:52)
[2023-06-15] MEDS: Cefazolin 2 GM in 0.9% Normal Saline (100mL Bag) 100 ML IV (14:52)
--- NOTE | 2023-06-15 14:58 | PCM.OP.BLANK ---
Operative Report Date of Procedure: 06/15/23 Preoperative diagnosis: Arthrofibrosis right knee Postoperative diagnosis: Same Procedure: Manipulation under anesthesia with intra-articular steroid injection Anesthesia: General EBL: None Complications: None Condition: Able to PACU Indication for procedure: This is a 57-year-old female who underwent total knee arthroplasty approximately 6 weeks ago who is failed to gain her range of motion wish to undergo an elective manipulation under anesthesia to increase range of motion. risk benefits and alternatives were reviewed including risk of bleeding infection nerve, artery, bone, tissue damage, blood clot need for further surgery and continued pain. Procedure: Patient was met in the preoperative holding area once again the operative extremity was identified by both patient and physician and was marked. Patient was brought back to the operating room anesthesia was started. A timeout was called into the proper patient procedure and extremity were being contemplated. The pre-operative range of motion was a few degrees of extension and achieving 85 degrees flexion. After patient was adequately anesthetized extension manipulation was performed followed by patellar mobilization followed by gradual flexion scar tissue was palpated being released with no concerning signs for tendon rupture or fracture. Postoperative range of motion was much improved with near full extension and 125 degrees of flexion. Following the manipulation using sterile technique from the superior lateral position an intra-articular injection with 40 mg of depomedrol and 8 cc 0.25%marcaine with epi was injected. bandaid applied
--- NOTE | 2023-06-15 14:59 | DCINST_ITS ---
Discharge Instructions Diet Discharge Diet: No restrictions Dressing / Incision Call your doctor if you observe: Shortness of breath and Chest pain Additional Dressing/Incision Instructions:: Encourage full knee flexion and extension regularly. Start physical therapy immediately. May shower and return to activities as normal. Keep pain controlled with medications as discussed with Dr. Mo in order to keep full range of motion. Call if you need more pain medication. ice and elevate next 72 hours. Follow-up with Dr. Mo and call with any questions or concerns. Follow Up Care When: 4 weeks Test Results: Test results from this visit will be discussed in further detail at your follow- up appointment, if applicable. Discharge Plan Admission Primary Reason for Your Visit: Manipulation under anesthesia of right knee Attending Provider: Ike Mo Primary Care Provider: Anuja Lorenzana Discharge Orders/Prescriptions Prescriptions: No Action oxycodone-acetaminophen 5-325 mg tablet 1 tab PO DAILY PRN (Reason: pain) acetaminophen [acetaminophen] 500 mg tablet 1,000 mg PO Q6H PRN Qty: 100 0RF Referrals / Follow Up: Anuja Lorenzana MD [Primary Care Provider] - Disposition Disposition (needs filled in before D/C Order can be placed): Home, Self Care
[2023-06-15 15:05] VITALS: BP 119/67; BP 138/86; PULSE 72; RESP 16; TEMP 36.6; O2SAT 100
[2023-06-15 15:15] VITALS: BP 130/68; BP 138/86; PULSE 67; RESP 16; O2SAT 99
[2023-06-15 15:30] VITALS: BP 135/72; BP 138/86; PULSE 70; RESP 16; TEMP 36.7; O2SAT 100
[2023-06-15 15:55] VITALS: BP 138/86
== END 2023-06-15 16:06 | disposition home or self-care (01) ==
LOC: SDC 13:08 → AC 13:09
PROVIDERS: PCP Internal Medicine; Referring Provider Orthopaedic Surgery; Visit Provider Orthopaedic Surgery
PROC: (CPT 27570; principal; 2023-06-15 14:45)
DX: M24.661 Ankylosis, right knee (principal)
CPT/HCPCS: 27570; 01380; J7120

== ENCOUNTER 2023-07-07 12:00 | Outpatient (RCR) | payer BC, SELFPAY ==
--- NOTE | 2023-05-11 09:06 | HP.PTEVAL_ITS ---
Patient's Visit Information Visit Information Visit Information: JEREMIAS VALENTIN is a 57 year old F referred to Physical Therapy by Dr. Ike Mo DO with a diagnosis of R TKA DOS: 05/05/23. Date of Evaluation: 05/11/23 Physical Therapist: Khang Coreas DPT Visit Plan Frequency: 2-3x /Week Duration: 6 Weeks Plan: Start with R knee ROm progressing to 0-0-120deg. Add in edema control, qu ad activation. Progress gait to LRD as tolerated. May use VASO and ice as needed for edema. Subjective Subjective: Pt is here today for her initial evaluation with diagnosis of R TKA, DOS: 05/05/23. Pt. reports overall doing well. She reports some tightness and pain in her knee, but no calf pain. No N/T noted, no chest pain or difficulty breathing. Pt. has been using her FWW, icing and elevating at home. Pt. lives with her spouse who can help out. Daughter is here today whom is a nurse and can help a little bit as well. Pt. is walking well, but reports having a bit of a limp. Has not tried stairs at home either. 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 Pt. is sleeping okay. Pt. is hopeful to get back all of her ROM and get back to all recreational/work activities without limitations. Pain R knee: Pain Intensity (Out of 10): 4 Pain Intensity Range: 3 and 8 Objective Objective: POSTURE: Pt has decent posture in stance. She lacks TKE on R side during stance. wt. shift to L side. PALPATION: Pt. has good looking incision, no signs of infection. Pt. has some expected bleeding minimal once bandage was changed. Negative homans signs. Edema: 5cm difference at mid patella, 5 cm difference at 4 inch superior to patella. NEURO: Normal throughout. pt. is able to rise on heels and toes without issues. ROM: R knee: 0-10-89deg. Pain with over pressure but did improve with PT driven stretching. tight HS and hip flexors noted. MMT: LLE 5/5 throughout. RLE: ankle 5/5 throughout; knee: ext 4#, flexion 10#; hip: flexion 1#, abd 1#. GAIT: Pt. ambulates with FWW, she lacks TKE on her RLE, decreased step length bilaterally. STAIRS: step to pattern with 2 HR loading LLE only. Balance/Special Test Scores TUG Test Time Seconds: 76 WOMAC Total Score: 96 WOMAC Percentatge: 0 Goals Goal 1:: LTG: Pt. to be I with HEP. Goal Time Frame: 4-6 Weeks Goal 2:: STG: pt. to have decreased edema in RLE symmetrical to L side. Goal Time Frame: 2 Weeks Goal 3:: STG: Pt. to have increased R knee ROM to atleast 0-0-120deg. Goal Time Frame: 2-4 Weeks Goal 4:: LTG: Pt. to have increased RLE strength to 5/5 throughout allowing for increased stability with all gait and work activities. Goal Time Frame: 4-6 Weeks Goal 5:: LTG: Pt. to have normal gait pattern without use of AD. Goal Time Frame: 4-6 Weeks Goal 6:: LTG: pt. to negotiate steps with1 HR with reciprocal pattern without limitations. Goal Time Frame: 4-6 Weeks Rehabilitation Potential Physical Therapy Diagnosis: Pt. has signs and symptoms consistent with R TKA. Pt. has subsequent hypomobility, weakness, difficulty walking and increased pain. Pt. would benefit from PT to address the above limitations progressing back to all recreational and work activities without limitations. Rehabilitation Potential: Excellent Anticipated Interventions Patient/Client Instruction: Educate patient on: Condition, Plan of Care, Risk Factors and Benefits of Fitness Program For the Purpose of:: To foster healthy habits, To improve decision making, To facilitate caregiver knowledge, To improve self management, To prevent re-injury and To improve ability to perform tasks related to life management Therapeutic Exercise to Include: Strength training, Power training, Endurance training, Balance training, Body mechanics, Flexibilty training, Gait and locomotor training, Passive ROM and Active ROM For the Purpose of:: To decrease pain, To decrease swelling/inflammation, To increase ROM, To improve nutrient delivery to tissue, To increase oxygenation perfusion, To improve muscle performance and motor function, To improve ability to perform ADL's, To increase tolerance to activity/condition/position, To improve performance and independence with ADL's, To improve gait and locomotor functions, To improve health of tissue, To decrease soft tissue restriction and To increase flexibility/ROM Manual Therapy Techniques to Include: Mobilization and Soft tissue mobilization For the Purpose of:: To decrease pain, To decrease swelling/inflammation and To increase ROM Cryotherapy (ice pack, ice massage): Yes Vasopneumatic device: Yes For the Purpose of:: To decrease pain, To decrease swelling/inflammation and To increase ROM Text: Thank you for the opportunity to evaluate your patient. For Medicare and Medicare HMO plans, please review the plan of care and approve it. It will need to be FAXED BACK to us at [phone] for Medicare purposes. For Medicare only, by signing this I certify the plan of care. Please let me know if there are questions or concerns regarding this plan of care. Physician Signature: Date:
--- NOTE | 2023-06-10 08:01 | HP.PTREVAL ---
Re-Evaluation Intro: Dr. Ike Mo, DO, It has been my pleasure to treat JEREMIAS VALENTIN over the last 10 visits for R TKA DOS: 05/05/23. Please see the progress note below for an update on the physical therapy plan of care! Subjective Subjective: Pt. reports overall doing much better than she was. She is taking pain meds sparingly. Pt. does take them pre PT. She is pleased with progressed. 2/10 pain pre treatment. Objective Objective/Function: ROM: AROM 0-3-105deg. PROM: 0-0-111deg. Pt. was tighter into extension today. Pt. reports being HEP compliant. She is still using a FWW. She does have slight decreased step length bilaterally. TU.9sec with FWW. We walked with cane this date. She did well with the pattern, but has marked reduced step length bilaterally, guarded with gait with SPC. Jeremias needs to continue to work no end range of motions. I urged her to be more consistent with end range stretching at home and in PT. I plan to progress cane shortly, but ROM needs to be the focus. Plan Plan Plan: Cont. focus on end range stretching progressing to 0-0-120deg of motion. Progress gait with SPC to normal pattern, emphasize TKE during stance phase and proper knee flexion during swing phase. Add in functional strengthening as tolerated. Use of vaso and ice to reduce edema as well. Balance/Gait/Functional tests Balance/Special Test Scores TUG Test Time Seconds: 76 Tug Test: >30sec.=impaired mobility WOMAC Total Score: 96 WOMAC Percentage: 0 Goals Goals Goal 1:: LTG: Pt. to be I with HEP. Goal Time Frame: 4-6 Weeks Goal Progress: Progressing Goal 2:: STG: pt. to have decreased edema in RLE symmetrical to L side. Goal Time Frame: 2 Weeks Goal Progress: Progressing Goal 3:: STG: Pt. to have increased R knee ROM to atleast 0-0-120deg. Goal Time Frame: 2-4 Weeks Goal Progress: Progressing Goal 4:: LTG: Pt. to have increased RLE strength to 5/5 throughout allowing for increased stability with all gait and work activities. Goal Time Frame: 4-6 Weeks Goal Progress: Progressing Goal 5:: LTG: Pt. to have normal gait pattern without use of AD. Goal Time Frame: 4-6 Weeks Goal Progress: Progressing Goal 6:: LTG: pt. to negotiate steps with1 HR with reciprocal pattern without limitations. Goal Time Frame: 4-6 Weeks Goal Progress: Progressing Anticipated Interventions Anticipated Interventions Patient/Client Instruction: Educate patient on: Condition, Plan of Care, Risk Factors and Benefits of Fitness Program For the Purpose of:: To foster healthy habits, To improve decision making, To facilitate caregiver knowledge, To improve self management, To prevent re-injury and To improve ability to perform tasks related to life management Therapeutic Exercise to Include: Strength training, Power training, Endurance training, Balance training, Body mechanics, Flexibilty training, Gait and locomotor training, Passive ROM and Active ROM For the Purpose of:: To decrease pain, To decrease swelling/inflammation, To increase ROM, To improve nutrient delivery to tissue, To increase oxygenation perfusion, To improve muscle performance and motor function, To improve ability to perform ADL's, To increase tolerance to activity/condition/position, To improve performance and independence with ADL's, To improve gait and locomotor functions, To improve health of tissue, To decrease soft tissue restriction and To increase flexibility/ROM Manual Therapy Techniques to Include: Mobilization and Soft tissue mobilization For the Purpose of:: To decrease pain, To decrease swelling/inflammation and To increase ROM Cryotherapy (ice pack, ice massage): Yes Vasopneumatic device: Yes For the Purpose of:: To decrease pain, To decrease swelling/inflammation and To increase ROM Re-Evaluation Ending Re-evaluation ending: Please do not hesitate to contact me at [phone] by phone or if you have questions or concerns regarding this new plan of care! Sincerely, Khang Coreas DPT
== END 2023-07-07 19:00 | disposition home or self-care (01) ==
LOC: PT 12:00
PROVIDERS: PCP Internal Medicine; Referring Provider Orthopaedic Surgery; Visit Provider Orthopaedic Surgery
DX: M17.11 Unilateral primary osteoarthritis, right knee (principal); Z96.651 Presence of right artificial knee joint
CPT/HCPCS: 97016; 97110; 97161; 97162; 97164

== ENCOUNTER → 2024-02-28 | Outpatient (CLI) | payer BC, SELFPAY ==
[2024-02-28 12:34] LABS: Absolute Neutrophil Count 3.3 X10^3/uL (2.0-7.7); Basophil# 0.04 X10^3/uL; Basophil% 0.6 % (0-1); Eosinophil# 0.28 X10^3/uL; Eosinophils% 4.2 % (0-5); Hematocrit 44.9 % (37-47); Lymphocyte % 38.7 % (19-41); Mean Corp Hgb Conc 31.2 g/dL (32-36); Mean Corpuscular Hgb 26.4 pg (27.0-32.0); Mean Corpuscular Volume 84.6 fL (81-99); Mean Platelet Vol. 9.4 fl (6.2-12.0); Monocyte# 0.47 X10^3/uL; NRBC Flagged by Analyzer 0 % (0-5); Neutrophil % 49.2 % (47-70); Platelet Count 294 K/mm3 (150-450); RBC Distribution Width CV 12.5 % (11.6-14.6); RBC Distribution Width SD 37.7 fl (35.1-43.9); Red Blood Count 5.31 M/mm3 (4.2-5.4); White Blood Count 6.7 K/mm3 (4.4-11.0)
[2024-02-28 13:07] LABS: ALB/GLOB Ratio 0.9 RATIO (0.9-2.4); AST(SGOT) 23 U/L (15-37); Alanine Aminotransfer ALT/SGPT 27 U/L (13-56); Albumin, Serum 3.9 g/dL (3.2-5.0); Alkaline Phosphatase 100 U/L (45-117); Anion Gap 5 (5-15); BUN 12 mg/dL (7-18); BUN/Creat Ratio 14.2 RATIO (10-20); Calcium,Total 9.4 mg/dL (8.5-10.1); Chloride 105 mmol/L (98-107); Cholesterol 216 mg/dL (200); Creatinine, Serum 0.84 mg/dL (0.55-1.02); EST Glomerular Filtration Rate 73 mL/min (>60); Est Glom Filt Rate - Afr Amer 88 mL/min (>60); Globulin 4.2 g/dL (2.2-4.2); Glucose 107 mg/dL (74-106); High Density Lipoprotein 41 mg/dL; Potassium 4.3 mmol/L (3.5-5.1); Protein, Total 8.1 g/dL (6.4-8.2); Sodium Level 138 mmol/L (136-145); Triglycerides 256 mg/dL; Very Low Density Lipoprotein 51 mg/dL (5-40)
[2024-02-28 13:41] LABS: Hemoglobin A1c 5.9 % (3.8-5.6)
== END | disposition home or self-care (01) ==
LOC: BIMLAB 10:27
PROVIDERS: PCP Internal Medicine; Referring Provider Internal Medicine; Visit Provider Internal Medicine
DX: I10 Essential (primary) hypertension (principal); R73.03 Prediabetes
CPT/HCPCS: 36415; 80053; 80061; 83036; 85025

== ENCOUNTER → 2024-03-08 | Outpatient (CLI) | payer BC, SELFPAY ==
--- NOTE | 2024-03-08 07:38 | CT_ITS ---
CT LEFT LOWER EXTREMITY WITH 3-D IMAGING CLINICAL INDICATION: left knee surgical planning.CAITLYN technique. TECHNIQUE: Axial CT images of the LEFT lower extremity was performed without IV contrast material. Coronal and sagittal reformats were provided. The protocol utilizes one or more of the following dose reduction techniques: automated exposure control, adjustment of mA and/or kV according to patient size,and/or use of iterative reconstruction technique. RADIATION DOSAGE (If Supplied By Facility): CTDIvol = ( 18.76 ) mGy, DLP = ( 1114.23 ) mGycm COMPARISON: No relevant prior comparison study available FINDINGS: Bones: Imaging of the left hip joint was obtained. No significant joint space narrowing is seen. No evidence of fracture or dislocation. Imaging of the knee joint was obtained. There is a marked degree of medial compartment joint space narrowing with degenerative spur formation along the distal femoral medial condyle as well as the medial tibial plateau. Marked degree of joint space narrowing of the patellofemoral joint with degenerative spur formation. Joint effusion. Imaging of the ankle joint was obtained. There is evidence of a calcaneal spur as well as a spur at the insertion of the Achilles tendon. Soft Tissues: Joint effusion The superficial soft tissues are unremarkable without evidence of edema, hematoma, or foreign body. CT/Extremity Lower without Contra IMPRESSION: Marked degree of joint space narrowing and degenerative spur formation of the medial femoral compartment and of the patellofemoral joint. Electronically Signed: Keegan Ballard MD at 11:59 EDT ,
== END | disposition home or self-care (01) ==
PROVIDERS: PCP Internal Medicine; Referring Provider Orthopaedic Surgery; Visit Provider Orthopaedic Surgery
DX: M17.12 Unilateral primary osteoarthritis, left knee (principal)
CPT/HCPCS: 73700

== ENCOUNTER → 2024-03-10 | Outpatient (CLI) | payer BC, SELFPAY ==
[2024-03-10 10:29] LABS: Prothrombin Time (Protime)PT. 13.6 SECONDS (11.7-14.9)
[2024-03-10 10:31] LABS: Partial Thromboplast Time 26.6 Seconds (24.1-36.2)
[2024-03-10 10:55] LABS: Magnesium 2.4 mg/dL (1.6-2.6)
[2024-03-11 06:08] LABS: Fructosamine 241 umol/L (0-285)
== END | disposition home or self-care (01) ==
LOC: LAB 09:32
PROVIDERS: Anesthesiology; PCP Internal Medicine; Referring Provider Orthopaedic Surgery; Visit Provider Orthopaedic Surgery
DX: Z01.818 Encounter for other preprocedural examination (principal)
CPT/HCPCS: 36415; 82985; 83735; 85610; 85730; 86850; 86900; 86901; 87081

== ENCOUNTER 2024-03-21 05:27 | Day surgery (SDC) | payer BC, SELFPAY ==
[2024-03-21] VITALS (11 sets, daily range): BP systolic 72–175; BP diastolic 34–90; PULSE 46–82; RESP 16–18; TEMP 36.5–36.8; O2SAT 94–100; BMI 35.9
--- NOTE | 2024-03-21 | IMM_PTH ---
PATIENT: JEREMIAS VALENTIN [place] [facility] [id number] AGE/SX: 58/F ROOM: RE03/21/[address]: Dr. Ike Mo DO : 1965 BED: DIS: 03/21/2024 SPEC #: [id number] RECD: 03/24/24 11:38 STATUS: PRERNA REQ #: [id number] AUTUMN: 03/21/24 00:[address]: Ike Mo DEPT: IMMUNOHISTOCHEMISTRY RECD BY: Vernon Rios ENTERED: 03/24/24 11:39 SP TYPE: IMMUNO OTHR DR: Dr. Anuja Lorenzana MD Tissues: Knee, NOS Procedures: BCL-2 (add) CD20 (add) CD45 (add) CD5 (add) CD79A (add) CD3 (initial) PHYSICIAN & INSTITUTION [place] [id number] SPECIMEN INFORMATION: Tissue Source: Bone and tissue left knee Clinical Info: Left knee degenerative joint disease Specimen Number: [id number] CPT code: 72667,70973h3 METHODOLOGY: Deparaffinized sections of prefer/formalin-fixed tissue or PAP/DQ stained slides are incubated with monoclonal/polyclonal antibodies/oligonucleotide probes. Localization is made via biotin free immunoperoxidase method. Appropriate controls are performed and reacted as expected. Results on target cell population are indicated in the following table: RESULTS: ANTIBODY / CLONE RESULT Block 2 CD3 (PS1) positive CD5 (SP10) positive CD20 (L26) positive CD45 (RP2/18) positive CD79a (11E3) positive BCL-2 (bcl-2/100/D5) negative These tests were developed and their performance characteristics determined by [facility]. They may not have been cleared or approved by the U.S. Food and Drug Administration. The FDA has determined that such clearance or approval is not necessary. The above immunohistochemical/dualISH markers are ordered and reviewed by the Pathologist. INTERPRETATION: Bone and tissue left knee, replacement: Polytypic lymphoid tissue. AM/mr 03/27/2024
[2024-03-21] MEDS: Scopolamine 1mg/72hr Patch 1 PATCH TD (06:15)
[2024-03-21] MEDS: Acetaminophen 500 MG Tablet 1000 MG PO (06:16)
[2024-03-21] MEDS: Celecoxib 200 MG Capsule 400 MG PO (06:16)
[2024-03-21] MEDS: Magnesium 1 GM over 15 mins IV (06:16)
[2024-03-21] MEDS: Gabapentin 600 MG Tablet PO (06:17)
[2024-03-21] MEDS: Insulin Lispro 100 UNIT/ML INSULN.PEN SC (06:20)
[2024-03-21 06:29] LABS: Bedside Glucose 218 mg/dL (74-106)
--- NOTE | 2024-03-21 07:10 | PCM.HP.BLA ---
History and Physical Date of Admission: 03/21/24 [facility] [address] [place] [address] OFFICE VISIT Date of Service: 02/16/24 MR#: [id number] Acct: [id number] Name: JEREMIAS VALENTIN Rep #: [id number] : 1965 Provider: Dr. Ike Mo DO Age/Sex: 58/F Location: [facility] [place] Status: Signed Intake Vital Signs 06/15/2313:39 Height 5 ft 5.5 in Intake Visit Reasons: LEFT KNEE Accompanied by: Self Is patient in pain?: Yes Allergies No Known Allergies Allergy (Verified 02/16/24 10:46) Medications ?Medication ?Instructions ?Recorded ?Confirmed ?Type acetaminophen 500 mg tablet 1,000 mg (2 x 500 mg) PO Q6H PRN 05/04/23 02/16/24 Rx #100 tabs PFSH Medical History Alcohol use Arthritis Colon cancer screening Heartburn History of edema History of pain when walking Leg cramps Non-smoker Post-menopausal Wears glasses Wears partial dentures Surgical History H/O: Hx of total knee arthroplasty Family History Mother DiabetesBrother DiabetesOther Arthritis Social History household members: spouse housing: house number of children: 2 current occupational status: employed Smoking Status: Never smoker alcohol intake: current alcohol intake frequency: holidays/special occasions only Alcohol type: wine substance use type: does not use what type of physical activity do you participate in: none seatbelt use: always do you feel safe at home: Yes additional social history: [employer] LEFT KNEE Details: This documentation accurately reflects the service provided and the decisions made by me, Dr. Ike Mo DO 02/16/24 0816. Part of today?s visit was documented by Francheska Berry, acting as scribe. JEREMIAS VALENTIN is a 58 year old F here today for left knee. Patient states that she continues to have pain over her lateral knee. She complains fo stiffness. She has difficulty ambulating due to her pain. She notes that her pain travels into her lateral calf and her calf is very hard. She has a knee brace which she wears at all times, except for sleeping. She had a left knee injection on 12/13/23 which was helpful for a few weeks. Patient takes tylenol for pain. Ortho Exam General General: Yes no acute distress Neurologic: Yes alert and Yes oriented x3 Psychologic: Yes reasonable and appropriate Right Knee Patella Translation: 1 Left Knee Skin/Wound: Yes CDI, No ecchymosis, No erythema and Yes swelling 1+: Effusion Knee ROM: Yes ROM-Extension -20 to 0 (-12) and Yes ROM-Flexion 0-140 (105) Examination: Yes med jt line tenderness, Yes Lat jt line tenderness and Yes Crepitus Stability: NML: Anterior Drawer, NML: Valgus 0, NML: Valgus 30, NML: Varus 0 and NML: Varus 30 Patella Translation: 1 KNEE: no calf pain, negative homans, normal sensation to light palpation, good ankle range of motion Head: Normocephalic Atraumatic Chest: symmetrical rise, non-labored breathing, no audible wheeze Abdomen: no guarding, non-rigid Supplemental Info 2023 x-ray left knee: Advanced tricompartmental DJD, worse medial compartment 06/15/2023 manipulation under anesthesia right knee 06/14/2023 x-ray right knee: Status post press-fit total knee arthroplasty 05/04/2023 right total knee arthroplasty: Dr. Mo 09/30/2020 x-ray bilateral knees advanced tricompartmental knee arthrosis [id number] medial compartment with varus deformity Coding Level of Care Code Off vis,est,level 4 Diagnoses Primary osteoarthritis of left knee M17.12 Osteoarthritis type: primary Assessment and Plan Assessment and Plan (1) Left knee DJD: Status: Acute Qualifiers: Osteoarthritis type: primary Qualified Code(s): M17.12 - Unilateral primary osteoarthritis, left knee Orders: Orders Knee 4 or More Views Today M17.12 - Unilateral primary osteoarthritis, left knee Plan Jeremias is a pleasant 58-year-old female who we previously performed a right total knee arthroplasty on who did very well with that she is happy she had a performed although she did have some issues with knee stiffness postoperatively. She has advanced left knee arthrosis and does wish to proceed with a left total knee arthroplasty she has failed injection therapy. And bracing and exercises. spoke with the patient about a left total knee arthroplasty. Explained she needs to do formal physical therapy after surgery to prevent a manipulation again this time around. She should work on knee range of motion on her own now as well as she is stiff at this time. Risks, benefits and alternatives of surgery reviewed including but not limited to bleeding, infection, nerve, artery and/or tissue damage, fracture, VTE, mechanical feel of the knee, continued pain, stiffness and expected post-operative course. Patient will be same day surgery. Follow up for 2 week post op or sooner if pain, swelling, numbness or associated symptoms, or concerns develop. All questions answered. Patient in agreement of plan. Plan for same-day surgery tentative surgery date March 21, 2024 02/16/24 1129 <Electronically signed by Ike Mo DO> Date Ike Mo DO I have examined the patient and the H&P has been reviewed. There are no clinical changes since date of exam.
--- NOTE | 2024-03-21 07:23 | PRE.ANES_ITS ---
ASA Classification* ASA Classification ASA Classification: 2 Assessment & Plan Anesthesia* Anesthesia Assessment Anesthesia Assessment: Discussed sedation and/or anesthesia options, risks, benefits, and alternatives with patient/parents/legal guardian/POA. Questions invited. The patient/parents/legal guardian/POA seems to understand and agrees to proceed with anesthesia plan. Reviewed the physical assessment, medical history, allergy history and patient home medications list prior to surgery/procedure/anesthetic and documented any changes. Performed airway and anesthesia risk assessments. Anesthesia Type Anesthesia Type: Spinal (see written pre anesthesia record for full assessment) Anesthesia Focused Assessment* Temperature: 98.2 F Pulse Rate: 74 Blood Pressure: 175/90 Respiratory Rate: 16 Pulse Ox: 99 Airway Assessment Mouth opens: >3 cm Mallampati Score: II Focused Labs Anesthesia Preop lab: CBC WBC 6.7 K/mm3 (4.4-11.0) 02/28/24 10:27 RBC 5.31 M/mm3 (4.2-5.4) 02/28/24 10:27 Hgb 14.0 g/dL (12.0-15.0) 02/28/24 10:27 Hct 44.9 % (37-47) 02/28/24 10:27 Plt Count 294 K/mm3 (150-450) 02/28/24 10:27 CHEMISTRY Potassium 4.3 mmol/L (3.5-5.1) 02/28/24 10:27 Sodium 138 mmol/L (136-145) 02/28/24 10:27 Magnesium 2.4 mg/dL (1.6-2.6) 03/10/24 09:39 BUN 12 mg/dL (7-18) 02/28/24 10:27 Creatinine 0.84 mg/dL (0.55-1.02) 02/28/24 10:27 Glucose 107 mg/dL (74-106) H 02/28/24 10:27 POC Glucose 218 mg/dL (74-106) H 03/21/24 06:08 COAG PT 13.6 SECONDS (11.7-14.9) 03/10/24 09:39 Pre-Assessment Diagnosis/Proposed Procedure Planned Operative Procedure(s): (L) ERAS Left Total Knee Replacement Robotic Arm Assisted Anesthesia History 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 When Was Last Pacemaker Check QUESTION #4 FULL TEXT: You/Your Family Experience fever (hyperthermia) with Anesthesia Last Oral Intake Last Oral intake: Last Oral Intake NPO since 05:00 03/21/24 06:30 Meds taken in AM with sips of Yes 03/21/24 06:30 water? 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 Female Yes 03/08/24 13:18 HX of Motion Sickness No 03/08/24 13:18 HX of N/V After Surgery No 03/08/24 13:18 Non-Smoker Yes 03/08/24 13:18 Duration of Surgery greater Yes 03/08/24 13:18 than 60 minutes Number of Risk Factors 3 03/08/24 13:18 PONV Score Moderate Risk 03/08/24 13:18 Height & Weight Height & Weight: Anesthesia: Height & Weight Height 5 ft 5 in 03/21/24 06:30 Weight: 98 kg 03/21/24 06:30 Body Mass Index (BMI) 35.9 03/21/24 06:30 Respiratory Assessment Respiratory Assessment - naval aircrewman operator: Respiratory Tract Infection Hx - naval aircrewman operator Hx Respiratory Tract Infection No 03/08/24 13:18 STOP Sleep Apnea STOP Sleep Apnea - 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 Has anyone observed you stop No 03/08/24 13:18 breathing during sleep? STOP Results Negative 03/08/24 13:18 QUESTION #5 FULL TEXT : Do you snore loudly (louder than talking or can be heard through closed doors)? 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 Specify any problems Hx of Preganancy in last 3 N/A 03/08/24 13:18 Months Nurse Filling Out Transfusion NBUCHER 03/08/24 13:18 & Questions: Date: 03/08/24 03/08/24 13:18 Time: 13:19 03/08/24 13:18 Patient unable to answer at this time (ie. confused, unrespo /Reproduction History /Reproductive History - naval aircrewman operator: /Reproductive Hx- naval aircrewman operator Hx Now No 03/08/24 13:18 Gestational Age (in weeks): EDC: Hx Hx Para Hx Section SAB No 03/08/24 13:18 Active Medications Active Medications: Current Medications Generic Name Dose Route Start Last Admin Trade Name Cleo PRN Reason Stop Dose Admin Acetaminophen 1,000 mg 03/21/24 07:30 03/21/24 06:16 Acetaminophen 500 Mg Tablet PO 03/21/24 07:31 1,000 mg X1 ONE Administration Celecoxib 400 mg 03/21/24 07:30 03/21/24 06:16 Celecoxib 200 Mg Capsule PO 03/21/24 07:31 400 mg X1 ONE Administration Dexamethasone Sodium Phosphate 10 mg 03/21/24 07:30 Dexamethasone 10 Mg/Ml Vial IV 03/21/24 07:31 X1 ONE Gabapentin 600 mg 03/21/24 07:30 03/21/24 06:17 Gabapentin 600 Mg Tablet PO 03/21/24 07:31 600 mg X1 ONE Administration Cefazolin Sodium 2 gm/ Sodium 110 mls @ 150 mls/hr 03/21/24 07:30 Chloride IV 03/21/24 08:13 PREOP ONE Tranexamic Acid 1,000 mg/ 110 mls @ 660 mls/hr 03/21/24 07:30 Sodium Chloride IV 03/21/24 07:39 X1 ONE Tranexamic Acid 1,000 mg/ 110 mls @ 660 mls/hr 03/21/24 07:30 Sodium Chloride IV 03/21/24 07:39 X1 ONE Lactated Ringer's 1,000 mls @ 125 mls/hr 03/21/24 07:30 IV 03/21/24 15:29 .Q8H CORNEL Magnesium Sulfate 1 gm/ 102 mls @ 408 mls/hr 03/21/24 07:30 03/21/24 06:16 Dextrose IV 03/21/24 07:44 408 mls/hr X1 ONE Administration Insulin Human Lispro 1 - 6 unit 03/21/24 07:30 03/21/24 06:20 Insulin Lispro 100 Unit/Ml Insuln.Pen SC 03/21/24 13:30 1 units Q4H PRN PRN Administration BG>/= 180, SEE PROTOCOL Protocol Scopolamine HBr 1 patch 03/21/24 07:30 03/21/24 06:15 Scopolamine 1mg/72hr Patch TD 03/21/24 07:31 1 patch X1 ONE Administration PFSH Medical History Preoperative evaluation to rule out surgical contraindication Borderline type 2 diabetes mellitus Hypertension History of pain when walking Post-menopausal Wears glasses Wears partial dentures Alcohol use Heartburn Non-smoker Leg cramps History of edema Colon cancer screening Arthritis Home Medications ?Medication ?Instructions ?Recorded ?Last Taken ?Type acetaminophen 500 mg tablet 1,000 mg (2 x 500 mg) PO Q6H PRN 05/04/23 06/14/23 Rx #100 tabs Allergy/AdvReac Type Severity Reaction Status Date / Time No Known Allergies Allergy Verified 03/21/24 06:29 Family History Mother Diabetes Brother Diabetes Other Arthritis Surgical History Hx of total knee arthroplasty H/O: Social History household members: spouse housing: house number of children: 2 current occupational status: employed Smoking Status: Never smoker alcohol intake: current alcohol intake frequency: holidays/special occasions only Alcohol type: wine substance use type: does not use what type of physical activity do you participate in: none seatbelt use: always do you feel safe at home: Yes additional social history: [employer] Review of Systems (Anesthesia) ROS Narrative System reviewed and no additional complaints, except as documented.
--- NOTE | 2024-03-21 08:00 | KNEE_PTH ---
PATIENT: JEREMIAS VALENTIN [place] [facility] [id number] AGE/SX: 58/F ROOM: RE03/21/[address]: Dr. Ike Mo DO : 1965 BED: DIS: 03/21/2024 SPEC #: [id number] RECD: 03/21/24 11:12 STATUS: PRERNA MEJIA #: [id number] AUTUMN: 03/21/24 08:[address]: Ike Mo DEPT: SURGICAL PATHOLOGY RECD BY: Gail Manzo ENTERED: 03/21/24 13:08 SP TYPE: TOTAL KNEE OTHR DR: Dr. Anuja Lorenzana MD Tissues: Knee, NOS Procedures: Decalcification bone/plaque Surgery Specimen Level IV HEADER OPERATION: Left total knee replacement robotic arm assisted PRE-OP DIAGNOSIS: Left knee degenerative joint disease TISSUE SUBMITTED: Bone and tissue left knee MICROSCOPIC DIAGNOSIS Bone and tissue of left knee, total knee resection: Severe degenerative joint disease. Loose body with polytypic lymphoid aggregates. See comment. AM: 03/24/2024 COMMENT Immunohistochemistry ([id number]) supports the above diagnosis. Case has been reviewed in consultation with Dr. Torres who concurs with the above diagnosis. IDC:[id number] MICROSCOPIC DESCRIPTION Slides are reviewed. GROSS DESCRIPTION Received is one container designated bone and soft tissue left knee. The specimen consists of multiple fragments of mills-yellow bone measuring in aggregate 11.0 x 7.0 x 2.5 cm. A piece of bone consistent with loose body also present in the container measuring 2.0 x 2.0 x 1.5cm. No soft tissue is identified. A number of bony fragments contain articular surfaces consistent with tibial plateau and femoral condyle and displaying prominent osteophyte formation, eburnation and bone erosion. Utilities Estimator And Drafter sections are submitted in two cassettes after decalcification. Cassette 2 contains loose body. / GABBY/ 03/21/2024 TC:5 CPT: 40686, 69724
[2024-03-21] MEDS: Cefazolin 2 GM in 0.9% Normal Saline (100mL Bag) 100 ML IV ×2 (08:06→13:00)
[2024-03-21] MEDS: dexAMETHasone 10 MG/ML Vial IV (08:15)
[2024-03-21] MEDS: TXA 1000mg in NS100 100ml (IVPB at Closure) 660 MG IV (08:17)
[2024-03-21] MEDS: TXA 1000mg in NS100 100ml (IVPB at Incision) 660 MG IV (09:14)
[2024-03-21] MEDS: Dexamethasone IV Preserv Free 10 MG/ML VIAL (10:09)
[2024-03-21] MEDS: Bupivacaine 0.5% PF 10 ML VIAL (10:09)
[2024-03-21] MEDS: 0.9% Normal Saline (Pres. free 10 ML Vial (10:09)
[2024-03-21] MEDS: Epinephrine (1 mg/ml) 1 MG/ML VIAL (10:09)
--- NOTE | 2024-03-21 10:50 | OP.PCM_ITS ---
Operative Report Date of Procedure: 03/21/24 Preoperative diagnosis: Left knee DJD Postoperative diagnosis: Same Procedure: Left total knee arthroplasty CT guided Robotic Assisted Implant: Greg triathlon press fit, femoral component size2, tibial baseplate size 2, asymmetric patella size 35, polyethylene X3 size 10 CS Anesthesia: Spinal with adductor canal block Tourniquet time: 20 minutes at 300 mmHg Complications: None Condition: Stable to PACU Estimated blood loss: 150 cc [employer]. My physician restaurant assistant was a vital part of this case. He was important in appropriate retraction during the case, and protection of soft tissues during procedure. His intimate knowledge of the case and my steps aided in safe and expedient completion of the procedure as well as appropriate position of the extremity during the case. He was also vital in assisting with closure under my direct supervision. Indication for procedure: This is a 58-year-old female with long standing degenerative joint disease of the knee who has failed conservative treatment and wished to proceed with elective total knee arthroplasty. Risk benefits and alternatives were reviewed including; risk of bleeding, infection, nerve artery and tissue damage, continued pain, postoperative stiffness, venous thromboembolism, need for postoperative rehabilitation, mechanical feel to the knee, and expected postoperative course. The pre- operative CT and templating was performed with component sizing. Procedure: The patient was met in the preoperative holding area. The operative extremity was identified by both patient and physician and was marked. Patient was met by anesthesia. An adductor canal block was placed by anesthesia posto peratively the patient was brought back to the operating room on a wheeled cart and transferred to the operating table in the supine position. Anesthesia was started. A well-padded tourniquet was placed on the operative extremity. The patient was prepped and draped in the usual sterile fashion. A timeout was called to ensure the proper patient procedure and extremity were being contemplated. An esmarch was used to exsanguinate the extremity. The tourniquet was inflated. A 10 blade scalpel was used to make a midline incision down through the skin and subcutaneous tissue. Skin retractors placed. Bovie and Aquamantis were used to perform meticulous hemostasis. full-thickness flaps were elevated medial and lateral along the joint capsule. A deep blade scalpel was used to perform a medial parapatellar arthrotomy. The knee was brought to full extension. A bovie was used to release the soft tissues off the most proximal aspect of the medial tibial plateau, a three-quarter inch curved osteotome was also used in this process. The infrapatellar fat pad was excised. The suprapatellar fat pad was excised partially anteriorolateraly and portion the anterioromedial pad was elevated from the femur. At this point our intra- articular femoral array was placed at a 45 degree angle proximal and posterior to the medial epicondyle. femoral checkpoint was placed at this time. Our tib ial array was placed partially intra incisional 1 stab incision was made for the inferior pin , with a 15 blade scalpel and pins were placed and attached to the tibial array , tibial checkpoint was placed in the proximal tibial metaphysis. Tourniquet was let down. At this point registration medina were taken throughout the knee . Once the knee was registered we then tensioned the medial and late ral ligaments in extension and 90 degrees of flexion. We then used these numbers to adjust our components within parameters to balance the knee in both flexion and extension once this was done on our monitor we then proceeded with using the robotic arm to make our tibial plateau cut, anterior and posterior chamfer and distal femur cuts. we removed the cut fragments with the use of a bovie and Kayla, we did use a lamina jigman to insure we visualized and removed all posterior osteophytes and at this time also used the Aquamantis on the posterior joint capsule. we then trialed and achieved the desired plan with a well-balanced knee. we used the green probe to harika the corresponding tibial rotation based on our CT template. Lug holes were drilled in the femur the tibia preparation was completed with the appropriate sized base plate pinned based on previous rotation harika. An appropriate sized fin punch was used on the tibia and 4 corner drill was used for the press fit component and the patella was prepared by first using a caliper to ensure sufficient bone stock and a patellar reamer to remove the desired amount of bone. lug holes drilled for an asymmetric poly. We then brought the knee through range of motion with excellent patellar tracking. We thoroughly irrigated the knee. Trial components were removed a posterior capsular injection was preformed with our standard cocktail. In addition the aqua Mantis was also used to aid in hemostasis. Betadine rinse was allowed to sit and washed out completely. Components were press-fit into place. Aricept rinse was then used followed by several more liters of irrigation after it was allowed to sit. The joint capsule was closed with #1 Ethibond [id number] in the upper part of the arthrotomy and #1 Vicryl in the lower part of the arthrotomy. , Followed by 2-0 Vicryl in the subcutaneous tissues with papito in the skin. Arrays and checkpoints were removed prior to closure all counts were correct stab incisions were closed with a staple standard dressing in the form of Mepilex AG for the main incision and a small Mepilex over the pin holes. Thigh-high EMILY hose applied over top of dressing. Patient tolerated the procedure well and was directed to PACU in stable condition . There were no intraoperative complications.
--- NOTE | 2024-03-21 10:55 | DCINST_ITS ---
Discharge Instructions Diet Discharge Diet: No restrictions (however Avoid excessive sweets as increased blood sugars around the time of surgery can increase risk of infection) Activity Weight Bearing Status: Weight bearing as tolerated Dressing / Incision Call your doctor if you observe: Shortness of breath and Chest pain Additional Dressing/Incision Instructions:: Ice and elevate lower extremities 2 weeks while not ambulating. Ambulation is encouraged. Weight bearing as tolerated. Use assistive devise for stability. Encourage FULL knee extension and flexion 1 time EVERY time you get up and down and MULTIPLE times per day. No showering until 72 hours after surgery. Begin showering postop day #3. Remove the dressing prior to shower and gently wash with warm water and antibacterial soap then pat dry and place abdominal pad (or plain gauze) and EMILY hose over top. This is to be done daily. Do not submerge for 3 weeks. If not showering daily after the initial 72 hours then you must clean incision and change dressing daily. Do not allow animals near the incision area. Keep clean. Follow anti-coagulation recommendations as prescribed. Do not take any NSAIDs while on blood thinner. Do not take any additional narcotic pain medication other than what was prescribed on your surgery day without discussing with physician. Narcotic medication can be addictive. Do not drink alcohol while taking narcotics. Supplement narcotic prescription with acetaminophen 1000 mg 4 times a day. Start physical therapy. If you are not currently scheduled for physical therapy or you are unsure of appointment time please call office [facility] to arrange. Call Dr. Mo with any concerns. Follow Up Care Please Follow Up With: Ike Mo DO When: 2 weeks Test Results: Test results from this visit will be discussed in further detail at your follow- up appointment, if applicable. Discharge Plan Admission Primary Reason for Your Visit: Left total knee arthroplasty Attending Provider: Ike Mo Primary Care Provider: Anuja Lorenzana Instructions Print Language: Tristanian Discharge Orders/Prescriptions Prescriptions: New acetaminophen 500 mg tablet 1,000 mg PO Q6H Qty: 100 0RF cephalexin 500 mg capsule 1,000 mg PO Q8H Qty: 4 0RF Rx Instructions: Take 2 tabs before you go to bed and 2 tabs after 5 AM morning after surgery when you wake up oxycodone 5 mg tablet 5 - 10 mg PO Q6H PRN (Reason: pain) 7 Days Qty: 60 0RF Eliquis 2.5 mg tablet 2.5 mg PO BID Qty: 28 0RF Rx Instructions: Begin morning after surgery. No Action acetaminophen [acetaminophen] 500 mg tablet 1,000 mg PO Q6H PRN Qty: 100 0RF Referrals / Follow Up: Anuja Lorenzana MD [Primary Care Provider] - Disposition Disposition (needs filled in before D/C Order can be placed): Home, Self Care
--- NOTE | 2024-03-21 11:05 | RAD_ITS ---
STUDY: X-RAY - LEFT KNEE REASON FOR EXAM: Female, 58 years old. Post op -- in PACU TECHNIQUE: 2 view(s) of the knee. COMPARISON: Comparison is made with prior study dated February 16, 2024. FINDINGS: Normal visualized distal femur. Normal visualized proximal tibia and fibula. Normal proximal tibiofibular articulation. The patient is status post total knee replacement. There is good alignment. Postoperative soft tissue changes. RAD/Knee 1 or 2 Views IMPRESSION: Status post left total knee replacement. There is good alignment. Postoperative soft tissue changes. Electronically Signed: Keegan Ballard MD at 12:22 EDT ,
[2024-03-21] MEDS: Ketorolac 30 MG/ML Syringe 15 MG IV (11:22)
[2024-03-21 11:56] LABS: Bedside Glucose 122 mg/dL (74-106)
--- NOTE | 2024-03-22 09:22 | PCM.POST.ANE ---
Anesthesia: Postop Eval I Current Vital Signs Temperature: 97 F Pulse Rate: 82 Blood Pressure: 122/80 Respiratory Rate: 16 Pulse Ox: 96 Oxygen Delivery Method: Room Air Assessment Airway patent: Yes Spontaneous unlabored respirations: Yes Mental status: Awake nausea: No Vomiting: No Anesthesia Complication: No Fluid Hydration Crystalloid volume administer (ml): 600 Total IV fluid infused: 600 Progress Note Anesthesia document: Postop Eval 1 completed: Yes
[2024-03-22 09:24] VITALS: BP 122/80; PULSE 82; RESP 16; TEMP 36.1; O2SAT 96
== END 2024-03-21 15:32 | disposition home or self-care (01) ==
LOC: SDC 05:28 → AC 05:28
PROVIDERS: PCP Internal Medicine; Referring Provider Orthopaedic Surgery; Visit Provider Orthopaedic Surgery
PROC: 0SRD0JZ Replacement of Left Knee Joint with Synthetic Substitute, Open Approach (ICD-10-PCS; CPT 27447; principal; 2024-03-21 07:30)
DX: M17.12 Unilateral primary osteoarthritis, left knee (principal)
CPT/HCPCS: 27447; S2900; 64447; 01402; 73560; 82962; 88305; 88311; 88341; 88342; 97162; C1776; J7120; J2405; J3475; J3490

== ENCOUNTER → 2024-04-03 | Outpatient (CLI) | payer BC, SELFPAY ==
--- NOTE | 2024-04-03 11:14 | VDLE_ITS ---
Reason For Study: Left leg pain RIGHT LEFT CFV is compressible, spontaneous, phasic, GSV is normal. competent and demonstrates normal CFV is compressible, spontaneous, phasic, augmentation. competent, and demonstrates normal Procedure augmentation. This is a venous duplex using B-mode, color FV is compressible, spontaneous, phasic, flow and spectral Doppler. competent and demonstrates normal Exam performed in department. augmentation. A preliminary report was called and/or faxed POP V is compressible, spontaneous, phasic, to Dr. Mo. competent and demonstrates normal augmentation. T/P Trunk is compressible. PTV is compressible. LT PerV is compressible. VL/Venous Duplex US, Unilateral Interpretation Summary Deep veins of the left lower extremity are patent and compressible segmentally. There is no evidence of left lower extremity deep vein thrombosis. The left great saphenous vein christine ears patent and compressible segmentally. Ordering Physician: Ike Mo Referring Physician: Anuja Lorenzana Performed By: Faith Bob RVT
== END | disposition home or self-care (01) ==
LOC: CVS 11:10
PROVIDERS: PCP Internal Medicine; Referring Provider Orthopaedic Surgery; Visit Provider Orthopaedic Surgery
DX: M79.662 Pain in left lower leg (principal)
CPT/HCPCS: 93971

== ENCOUNTER 2024-06-08 12:00 | Outpatient (RCR) | payer BC, SELFPAY ==
--- NOTE | 2024-03-27 11:30 | HP.PTEVAL_ITS ---
Patient's Visit Information Visit Information Visit Information: JEREMIAS VALENTIN is a 58 year old F referred to Physical Therapy by Dr. Ike Mo DO with a diagnosis of L TKA, DOS: 03/21/24. Date of Evaluation: 03/24/24 Physical Therapist: Khang Coreas DPT Visit Plan Frequency: 3x /Week Duration: 6 Weeks Plan: Start with L knee ROM progressing extension and flexion towards end ranges . May use Vaso and ice initially to reduce edema. Progress functional mobility and gait with LRD. Subjective Subjective: Pt. is here today for her initial evaluation with diagnosis L TKA, DOS: 03/21/24. Pt. arrives with use of WC, but has been using FWW at home. Pt. reports having high levels of pain, but has been trying to complete her HEP as indicated. Pt. is icing and taking medications as prescribed. Pt. did have the Iovera injection as well. She is sleeping, but her knee does wake her up at night. She has been trying her exercises, mostly working on ROM. She is walking short distances in her home. Pt. denies calf pain, no NT noted. Pt. is hopeful to decrease her pain and increase her ROM in order to get back to all recreational and work activities without limitations. Pt. works at [employer] in the [place]. Pain L knee: Pain Intensity (Out of 10): 6 Pain Intensity Range: 4 and 8 Objective Objective: POSTURE: Pt. is able to stand with FWW, but heavily uses of off load LLE. Pt. has a slight lack of TKE in stance, uses FWW for balance. PALPATION: bandage removed, no signs of infection, no major drainage noted. [place] in place. NEURO: normal throughout. ROM: L knee: 0-8-78deg. PROM: 0-5-81deg. Pain as limiting factor. No end feel felt. MMT: RLE: knee: ext 22.4#, flexion 17.3#; hip: flexion 18.9#. LLE: knee: ext 4#, flexion 7#; hip: flexion 0#. GAIT: Pt. is able to ambulate with FWW,but has flexed posture, and heavily uses AD to stabilize. TU.1 sec with FWW. Balance/Special Test Scores TUG Test Time Seconds: 49.1 30 Second Chair Rise Test Seconds: 4 WOMAC Total Score: 76 WOMAC Percentatge: 20.8400 Goals Goal 1:: LTG: Pt. to be I with HEP. Goal Time Frame: 4-6 Weeks Goal 2:: STG: Pt. to have increased L knee ROM to 0-0-120deg allowing for good tolerance to all functional mobility. Goal Time Frame: 2-4 Weeks Goal 3:: LTG: Pt. to have increased LLE strength symmetrical to R side. Goal Time Frame: 6-8 Weeks Goal 4:: STG: Pt. to have symmetrical girth of LLE to RLE indicating decreased edema in LLE. Goal Time Frame: 2-4 Weeks Goal 5:: LTG: Pt. to ambulate with out AD with normal gait pattern and no increase in L knee pain. Goal Time Frame: 4-6 Weeks Goal 6:: LTG: Pt. to have decreased TUG time to less than 10 seconds indicating improved functional mobility. Goal Time Frame: 4-6 Weeks Rehabilitation Potential Physical Therapy Diagnosis: Pt. has signs and symptoms consistent with L TKA with marked hypomobility, weakness, difficulty walking and increased swelling. Pt. would benefit form PT to address the above limitations progressing back to all work and recreational activities without limitations. Rehabilitation Potential: Excellent Anticipated Interventions Patient/Client Instruction: Educate patient on: Condition, Plan of Care, Risk Factors and Benefits of Fitness Program For the Purpose of:: To facilitate caregiver knowledge, To improve self management, To prevent re-injury, To improve ability to perform tasks related to life management and To improve tolerance to ADL's Therapeutic Exercise to Include: Strength training, Power training, Endurance training, Balance training, Flexibilty training, Gait and locomotor training, Passive ROM and Active ROM For the Purpose of:: To decrease pain, To decrease swelling/inflammation, To increase ROM, To improve nutrient delivery to tissue, To increase oxygenation perfusion, To improve muscle performance and motor function, To improve gait and locomotor functions, To improve health of tissue, To decrease soft tissue restriction and To increase flexibility/ROM Manual Therapy Techniques to Include: Mobilization and Passive ROM For the Purpose of:: To decrease pain, To decrease swelling/inflammation, To increase ROM, To improve nutrient delivery to tissue, To improve gait and locomotor functions, To improve health of tissue, To decrease soft tissue restriction and To increase flexibility/ROM Cryotherapy (ice pack, ice massage): Yes Vasopneumatic device: Yes For the Purpose of:: To decrease pain, To decrease swelling/inflammation, To increase ROM, To improve nutrient delivery to tissue and To increase oxygenation perfusion Text: Thank you for the opportunity to evaluate your patient. For Medicare and Medicare HMO plans, please review the plan of care and approve it. It will need to be FAXED BACK to us at [phone] for Medicare purposes. For Medicare only, by signing this I certify the plan of care. Please let me know if there are questions or concerns regarding this plan of care. Physician Signature: Date:
== END 2024-06-08 19:00 | disposition home or self-care (01) ==
LOC: PT 12:00
PROVIDERS: PCP Internal Medicine; Referring Provider Orthopaedic Surgery; Visit Provider Orthopaedic Surgery
DX: M17.12 Unilateral primary osteoarthritis, left knee (principal); Z96.652 Presence of left artificial knee joint
CPT/HCPCS: 97016; 97110; 97161

== ENCOUNTER → 2025-01-29 | Outpatient (CLI) | payer BC, SELFPAY ==
--- NOTE | 2025-01-29 08:01 | BI_ITS ---
EXAM: SCRN MAMM (CAD)W/RODERICK BILAT DATE: 01/29/2025 CLINICAL HISTORY: F, Age 59 y/o , BREAST CANCER SCREENING No family history. BREAST CANCER RISK ASSESSMENT: Not assessed. TECHNIQUE: Bilateral screening digital breast tomosynthesis with 2D and 3D images. Computer aided detection. COMPARISON: Prior exam(s) dated November 03, 2022. FINDINGS: TISSUE DENSITY: The breast tissue is heterogenously dense, which may obscure small masses. Bilateral Breast Mammographic Findings: No significant masses, calcifications or other abnormalities are identified. No suspicious masses, areas of developing architectural distortion, or suspicious calcifications. There has been no significant interval change. BI/SCRN MAMM (CAD)W/RODERICK BILAT IMPRESSION: OVERALL FINAL ASSESSMENT: BIRADS 1 NEGATIVE RECOMMENDATION: Routine annual follow-up in 1 Year A letter with findings and recommendations will be mailed to the patient. Reading Location: [place] [address]
--- OUTSIDE RECORDS SUMMARY | 2025-01-29 08:29 | XMS RPT_ITS | CCD ---
Author Organization [facility] CliniSyhi Care Team Providers Care Pet Care Assistant Name Role Phone Dr. Gary Sahu Primary Care Provider [phone] Génesis Acevedo Attending Provider Unavailable Dr. Gary Sahu Referring Provider [phone] Dr. Anuja Lorenzana Attending Provider [phone] Dr. Anuja Lorenzana Primary Care Provider [phone] Dr. Anuja Lorenzana Referring Provider [phone] Brooklynn CORRECTIONAL SUPERVISOR, NAVARRO Zarate Attending Provider [phone] Dr. Anuja Lorenzana Primary Care Provider [phone]) Dr. Anuja Lorenzana Referring Provider [phone] Dr. Ike Mo Attending Provider [phone]) Dr. Anuja Lorenzana Primary Care Provider 1(33 0) Dr. Anuja Lorenzana Referring Provider [phone] Dr. Ike Mo Attending Provider 1(330) Dr. Chel Canales Attending Provider 1(330) Dr. Ike Mo Referring Provider [phone] Dr. Ike Mo Other Provider Dr. Jose G Gutierrez Attending Provider Dr. Anuja Lorenzana Primary Care Provider [phone] Dr. Anuja Lorenzana Referring Provider [phone] Dr. Ike Mo Attending Provider [phone]) Dr. Anuja Lorenzana MD Primary Care Provider Harriett STALLINGS, Dr. Licea Attending Provider [phone] Harriett STALLINGS, Dr. Licea Referring Provider [phone] Oleghe, Efewongbe Primary Care Unavailable Oleghe, Efewongbe Referring Unavailable Oleghe, Efewongbe Attending Unavailable Oleghe, Efewongbe Referring Unavailable Oleghe, Efewongbe Primary Care Unavailable Ike Mo Attending Unavailable Jose G Gutierrez Attending Unavailable Oleghe, Efewongbe Primary Care Unavailable Oleghe, Efewongbe Primary Care Unavailable Ike Mo Attending Unavailable Ike Mo Referring Unavailable Oleghe, Efewongbe Primary Care Unavailable Ike Mo Attending Unavailable Ike Mo Referring Unavailable Ike Mo Referring Unavailable Oleghe, Efewongbe Primary Care Unavailable Ike Mo Attending Unavailable Oleghe, Efewongbe Primary Care Unavailable Ike Mo Referring Unavailable Ike Mo Attending Unavailable Oleghe, Efewongbe Primary Care Unavailable Oleghe, Efewongbe Referring Unavailable Oleghe, Efewongbe Attending Unavailable Oleghe, Efewongbe Primary Care Unavailable Oleghe, Efewongbe Referring Unavailable Oleghe, Efewongbe Attending Unavailable Oleghe, Efewongbe Primary Care Unavailable You, Temo Attending Unavailable Oleghe, Efewongbe Primary Care Unavailable Oleghe, Efewongbe Referring Unavailable Oleghe, Efewongbe Attending Unavailable Oleghe, Efewongbe Primary Care Unavailable Oleghe, Efewongbe Referring Unavailable Ike Mo Attending Unavailable Ted Gutierrezril Attending Unavailable Oleghe, Efewongbe Primary Care Unavailable Oleghe, Efewongbe Referring Unavailable Oleghe, Efewongbe Primary Care Unavailable Oleghe, Efewongbe Attending Unavailable Oleghe, Efewongbe Primary Care Unavailable Oleghe, Efewongbe Referring Unavailable Ike Mo Attending Unavailable Jacob Nicholson Attending Unavailable Ike Mo Referring Unavailable Oleghe, Efewongbe Primary Care Unavailable Oleghe, Efewongbe Primary Care Unavailable Ike Mo Attending Unavailable Ike Mo Consulting Unavailable Ike Mo Referring Unavailable Olekathiee, Efewongbe Primary Care Unavailable Acerafy, Efewongbe Referring Unavailable Ike Mo Attending Unavailable Acerafy, Efewongbe Referring Unavailable Ike Mo Attending Unavailable Oleghe, Efewongbe Primary Care Unavailable Oleghe, Efewongbe Primary Care Unavailable Olekathiee, Efewongbe Referring Unavailable Ike Mo Attending Unavailable Oleghe, Efewongbe Primary Care Unavailable Jose G Gutierrez Attending Unavailable Olekathiee, Efewongbe Primary Care Unavailable Ike Mo Referring Unavailable Ike Mo Attending Unavailable Oleghe, Efewongbe Referring Unavailable Oleghe, Efewongbe Primary Care Unavailable Olekathiee, Efewongbe Attending Unavailable Medications Current Medications Medication Drug Class(es) Dates Sig (Normalized) Sig (Original) acetaminophen 500 mg oral tablet (6 sources) Start: 07-28-2024 take 1 tablet by mouth every six hours as needed Acetaminophen (Tylenol Extra Strength) 500 mg tablet Active 500 mg PO EVERY 6 HOURS as needed July 28, 2024 1:00am Start: 05-04-2023 End: 05-31-2024 take 2 tablets by mouth every six hours Acetaminophen 500 mg tablet Discontinued 1000 mg PO EVERY 6 HOURS 100 March 21, 2024 12:00am May 31, 2024 10:00am Start: 05-04-2023 take 1000 mg by mout h every six hours as needed Acetaminophen Active 1000 MG PO EVERY 6 HOURS NEEDED 100 May 04, 2023 12:00am estradiol 0.1 mg/ml vaginal cream (4 sources) Estrogen Start: 11-09-2022 Estradiol Acti ve 0 VAGINAL .COMPLEX 42.5 November 09, 2022 12:00am small amount as directed vaginal every other day X 4 weeks then twice a week; glucosamine 500 mg oral tablet (6 sources) Start: 12-29-2017 take 1 tablet by mouth twice daily glucosamine HCl 500 mg tablet Active 500 MG PO TWICE A DAY December 29, 2017 12:00am Miscellaneous Medical Supply (1 source) Start: 08-13-2023 Miscellaneous Medical Supply Active 1 EACH .1 year August 13, 2023 1:00am Completed/Discontinued Medications Medication Drug Class(es) Dates Sig (Normalized) Sig (Original) acetaminophen 325 mg / oxyCODONE hydrochloride 5 mg oral tablet (3 sources) Opioid Agonist Start: 06-14-2023 End: 02-16-2024 Oxycodone-Acetamino phen 5-325 mg tablet Discontinued 1 {tbl} PO DAILY as needed for pain June 14, 2023 12:00am February 16, 2024 10:46am Start: 06-14-2023 take 1 tablet by darvin once daily Oxycodone-Acetaminophen Active 1 TABLET PO DAILY June 14, 2023 12:00am amoxicillin 500 mg oral tablet (1 source) Penicillin-class Antibacterial Start: 07-31-2024 End: 09-01-2024 take 4 tablets by mouth every hour Amoxicillin 500 mg tablet Discontinued 2000 mg PO ONCE July 31, 2024 1:00am September 01, 2024 11:34am take 4 tabs within 1 hr prior to dental procedure. apixaban 2.5 mg oral tablet (5 sources) Factor Xa Inhibitor Start: 03-21-2024 End: 05-01-2024 take 1 tablet by mouth twice daily in the morning Apixaban (Eliquis) 2.5 mg tablet Discontinued 2.5 mg PO TWICE A DAY March 21, 2024 12:00am May 01, 2024 10:18am Begin morning after surgery. Start: 05-04-2023 End: 06-14-2023 take 1 tablet by mouth twice daily Apixaban (Eliquis) 2.5 mg tablet Discontinued 2.5 mg PO TWICE A DAY May 04, 2023 12:00am June 14, 2023 9:59am cephalexin 500 mg oral capsule (2 sources) Cephalosporin Antibacterial Start: 03-21-2024 End: 05-01-2024 Cephalexin 500 mg capsule Discontinued 1000 mg PO Q8H March 21, 2024 12:00am May 01, 2024 10:18am Take 2 tabs before you go to bed and 2 tabs after 5 AM morning after surgery when you wake up Start: 05-04-2023 Cephalexin Act rosa isela 1000 MG PO EVERY 8 HOURS May 04, 2023 12:00am take 2 tabs at 9:00 pm and 2 tabs after 5 am when you wake up etodolac 500 mg oral tablet (9 sources) Nonsteroidal Anti-inflammatory Drug Start: 09-30-2020 End: 01-02-2022 take 1 tablet by mouth twice daily Etodolac 500 mg tablet Discontinued 500 mg PO TWICE A DAY 60 September 30, 2020 1:00am January 02, 2022 9:24am Do not take in conjunction with ibuprofen or other NSAIDs. Tylenol is okay ibuprofen 200 mg oral capsule (9 sources) Nonsteroidal Anti-inflammatory Drug Start: 12-20-2018 End: 05-12-2022 take 1 capsule by mouth every six hours Ibuprofen 200 mg capsule Discontinued 200 mg PO EVERY 6 HOURS December 20, 2018 12:00am May 12, 2022 8:49am Miscellaneous Medical Supply misc (1 source) Start: 08-13-2023 End: 02-16-2024 Miscellaneous Medical Supply misc Discontinued 1 NMA MC .1 year August 13, 2023 1:00am February 16, 2024 10:47am naproxen sodium 220 mg oral tablet (10 sources) Nonsteroidal Anti-inflammatory Drug Start: 06-12-2024 End: 07-28-2024 take 1 tablet by mouth twice daily as needed Naproxen Sodium (Aleve) 220 mg tablet Discontinued 220 mg PO TWICE A DAY as needed June 12, 2024 12:00am July 28, 2024 11:10am Start: 05-12-2022 End: 05-04-2023 take 1 capsule by mouth twice daily as needed for pain Naproxen Sodium (Aleve) 220 mg capsule Discontinued 220 mg PO TWICE A DAY as needed for pain May 12, 2022 12:00am May 04, 2023 10:12am oxyCODONE hydrochloride 5 mg oral tablet (9 sources) Opioid Agonist Start: 03-21-2024 End: 05-31-2024 take 5-10 mg by mouth every six hours as needed for pain Oxycodone 5 mg tablet Discontinued 5 - 10 mg PO EVERY 6 HOURS as needed for Pain Score 6-10/10 56 7 April 03, 2024 April 09, 2024 12:00am April 10, 2024 12:03am Start: 05-17-2023 End: 05-24-2023 take 5-10 mg by mouth every six hours as needed for pain Oxycodone 5 mg tablet Discontinued 5 - 10 mg PO EVERY 6 HOURS as needed for Pain Score 6-10/10 50 7 May 17, 2023 May 23, 2023 12:00am May 24, 2023 12:04am Start: 05-04-2023 End: 05-17-2023 take 5-10 mg by mouth every four hours as needed for pain Oxycodone 5 mg tablet Discontinued 5 - 10 mg PO Q4H as needed for pain 60 7 May 04, 2023 May 17, 2023 10:07am Problems Active Problems Problem Classification Problem Date Documented Date Episodic/Chronic Diabetes mellitus without complication (4 sources) Prediabetes; Translations: [Other abnormal glucose] Onset: 01-19-2025 04-28-2023 Episodic Disorders of lipid metabolism (2 sources) Mixed hyperlipidemia; Translations: [Mixed hyperlipidemia] 04-28-2023 Chronic Essential hypertension (2 sources) Hypertensive disorder; Translations: [Essential (primary) hypertension] Onset: 09-01-2024 02-28-2024 Chronic Immunizations and screening for infectious disease (1 source) Needs influenza immunization; Translations: [Encounter for immunization] 05-31-2024 Episodic Menopausal disorders (13 sources) Atrophic vaginitis; Translations: [Postmenopausal atrophic vaginitis] 11-09-2022 Chronic Comment on above: estradiol cream Osteoarthritis (20 sources) Osteoarthritis of left knee joint; Translations: [Unilateral primary osteoarthritis, left knee] Onset: 07-28-2024 01-02-2022 Chronic Other aftercare (3 sources) Follow-up status; Translations: [Encounter for other orthopedic aftercare] 05-17-2023 Episodic Other aftercare (3 sources) Encounter for other orthopedic aftercare; Translations: [Unspecified orthopedic aftercare] 05-17-2023 Episodic Other connective tissue disease (1 source) Presence of left artificial knee joint; Translations: [Presence of left artificial knee joint] Onset: 05-01-2024 Chronic Other nervous system disorders (1 source) Carpal tunnel syndrome; Translations: [Carpal tunnel syndrome, bilateral upper limbs] 09-01-2024 Chronic Other nervous system disorders (1 source) Carpal tunnel syndrome, bilateral upper limbs; Translations: [Carpal tunnel syndrome, bilateral upper limbs] Onset: 09-01-2024 Chronic Other nervous system disorders (4 sources) Acute postoperative pain; Translations: [Other acute postprocedural pain] 05-04-2023 Episodic Other nervous system disorders (1 source) Other acute postprocedural pain; Translations: [Other acute postoperative pain] 06-14-2023 Episodic Other non-traumatic joint disorders (4 sources) Ankylosis, unspecified knee; Translations: [Fibrosis of knee joint] 06-14-2023 Chronic Other non-traumatic joint disorders (1 source) Ankylosis, right knee; Translations: [Ankylosis, right knee] Onset: 07-28-2024 Chronic Other non-traumatic joint disorders (10 sources) Pain in unspecified knee; Translations: [Knee pain] 01-02-2022 Episodic Other non-traumatic joint disorders (1 source) Stiffness of right knee, not elsewhere classified; Translations: [Stiffness of joint, not elsewhere classified, lower leg] 06-14-2023 Episodic Other screening for suspected conditions (not mental disorders or infectious disease) (5 sources) Endometrium thickened; Translations: [Abnormal findings on diagnostic imaging of other specified body structures] 12-24-2022 Chronic Other screening for suspected conditions (not mental disorders or infectious disease) (12 sources) Patient encounter status; Translations: [Encounter for screening for malignant neoplasm of colon] Onset: 01-19-2025 Episodic Unclassified (2 sources) Encounter for screening for malignant neoplasm of colon; Translations: [Z12.11 - Encounter for screening for malignant neoplasm of colon] Past or Other Problems Problem Classification Problem Date Documented Da te Episodic/Chronic Other connective tissue disease (1 source) Pain in left lower leg; Translations: [Pain in left lower leg] Onset: 05-02-2024 Episodic Other non-traumatic joint disorders (1 source) Pain in left knee; Translations: [Pain in left knee] Onset: 08-25-2024 Episodic Results Test Name Value Interpretation Reference Range Facility Internal Medicine Office Vis itosri 01-19-2025 Internal Medicine Office Visit [facility] [place], [place] [address] OFFICE VISIT Date of Service: 01/19/25 MR#: [id number] Acct: [id number] Name: CHERYLE VALENTIN Rep #: [id number] : 1965 Provider: Dr. Anuja castillo MD Age/Sex: 59/F Location: [facility] [place] Status: Signed Intake Vital Signs 09/01/24 10:42 01/19/25 11:09 Height 5 ft 5 in 5 ft 5 in Weight: 210 lb 4 oz BMI 34.9 BP 136/78 H Blood Pressure Location Lt brachial Position Sitting Respiration 16 Pulse 77 Pulse Source Monitor Temp 97.3 F L Temp Source Temporal Pulse Oximetry (%) 98 Oxygen Delivery Method room air Intake Visit Reasons: FU Chief Complaint: 3m f/u Marker Machine Required: No Accompanied by: Self Is patient in pain?: No Allergies No Known Allergies Allergy (Verified 01/19/25 10:59) Medications ???Medication ???Instructions ???Recorded ???Confirmed ???Type acetaminophen 500 mg tablet 500 mg PO Q6H PRN 07/28/24 5 History (Tylenol Extra Strength) Have you fallen in the past year?: No PFSH Medical History (Updated 01/19/25 @ 12:[address] Anuja Lorenzana MD) Health care maintenance Bilateral carpal tunnel syndrome Flu vaccine need Preoperative evaluation to rule out surgical contraindication Borderline type 2 diabetes mellitus Hypertension History of pain when walking Post-menopausal Wears glasses Wears partial dentures Alcohol use Heartburn Non-smoker Leg cramps History of edema Colon cancer screening Arthritis Surgical History Hx of total knee arthroplasty H/O: Family History Mother Diabetes Brother Diabetes Other Arthritis Social History household members: spouse housing: house number of children: 2 current occupational status: employed Smoking Status: Never smoker alcohol intake: current alcohol intake frequency: holidays/special occasions only Alcohol type: wine substance use type: does not use what type of physical activity do you participate in: none seatbelt use: always do you feel safe at home: Yes additional social history: [place] HPI HPI Chief Complaint: 3m f/u Details: CHERYLE VALENTIN, is a 59 F who presents to the office today for follow-up of a chronic conditions. No acute concerns at this time. History of borderline diabetes, A1c at her last visit was 6.2. She states that she for the most part has cut out a lot of sweets and eat better. A1c is down to 6. Also history of hypertension currently not on medication. Initial blood pressure was 136/78 however repeat was 140/86 mmHg. Does not routinely check it at home. Admits that she has been adding salt to her food. Was referred to gastroenterology for colon cancer screening however she states that she did not get this done because she did not hear from them. No dark or bloody stool or unintentional weight changes. Also yet to get her mammogram, she states that she would like to get it done now. Last Pap smear was in 2022. Due for visit with dermatology. ROS Const Constitutional: No body ache, excessive sweating, fatigue, fever(s), frequent falls, headache(s), snoring, weakness, weight change, sleep problems or change in appetite Eyes Eyes: No blurry vision, change in vision, floaters, visual disturbances, eye pain or Light sensitivity ENT ENT: No abnormal hearing, ear or mastoid pain, tinnitus, balance problems, nosebleed/epistaxis, nasal congestion, headache(s), neck pain or sore throat Resp Respiratory: No cough, excessive phlegm production, pain on inspiration, shortness of breath, snoring or wheezing Cardio Cardiology: No chest pain at rest, chest pain with exertion, excessive sweating, shortness of breath, dyspnea on exertion, lightheadedness, orthopnea or palpitations Gastro GI: No abdominal pain, change in bowel habits, constipation, cramping, diarrhea, nausea/dyspepsia or vomiting Genitourinary-Female: No burning urination, painful urination, urinary incontinence, urinary frequency, blood in urine, abnormal periods or pelvic pain Musc Musculoskeletal: No abnormal gait, joint pain, back pain, limited range of motion, neck pain, numbness, stiffness, tingling or Arthritis Skin Skin: No dry skin, redness, excessive hair growth, yellowing of the eye, lesions, itchy eyes, rash or wounds Neuro Neurology: No abnormal gait, abnormal hearing, abnormal speech, behavioral changes, unsteady gait/balance, dizziness, weakness, frequent falls, headache(s), memory loss, numbness, tingling or visual disturbances Psych Psychiatric: No anxiety, No behavioral changes, No change in appetite, No depression, No memory loss and N (more content not included)... Normal [facility] Internal Medicine Office Vis celinan 09-01-2024 Internal Medicine Office Visit [facility] [address] [place] [address] [place] [address] OFFICE VISIT Date of Service: 09/01/24 MR#: [id number] Acct: [id number] Name: CHERYLE VALENTIN Rep #: [id number] : 1965 Provider: Dr. Anuja castillo MD Age/Sex: 59/F Location: [facility] [place] Status: Signed Intake Vital Signs 05/31/24 10:04 09/01/24 10:42 Height 5 ft 5 in 5 ft 5 in Weight: 216 lb BMI 35.9 BP 128/86 H Blood Pressure Location Lt brachial Position Sitting Respiration 16 Pulse 66 Pulse Source Monitor Temp 97.8 F Temp Source Temporal Pulse Oximetry (%) 97 Oxygen Delivery Method room air Intake Visit Reasons: 3 M FU Chief Complaint: 3m f/u Marker Machine Required: No Accompanied by: Self Is patient in pain?: Yes (left shoulder) Pain scale (1-10): 8 Allergies No Known Allergies Allergy (Verified 09/01/24 10:34) Medications ???Medication ???Instructions ???Recorded ???Confirmed ???Type acetaminophen 500 mg tablet 500 mg PO Q6H PRN 07/28/24 09/01/24 History (Tylenol Extra Strength) Nurse's Note: Bilateral wrist splints provided to patient this date. [facility] Medical History (Updated 09/01/24 @ 13:[address] Anuja Lorenzana MD) Bilateral carpal tunnel syndrome Flu vaccine need Preoperative evaluation to rule out surgical contraindication Borderline type 2 diabetes mellitus Hypertension History of pain when walking Post-menopausal Wears glasses Wears partial dentures Alcohol use Heartburn Non-smoker Leg cramps History of edema Colon cancer screening Arthritis Surgical History Hx of total knee arthroplasty H/O: Family History Mother Diabetes Brother Diabetes Other Arthritis Social History household members: spouse housing: house number of children: 2 current occupational status: employed Smoking Status: Never smoker alcohol intake: current alcohol intake frequency: holidays/special occasions only Alcohol type: wine substance use type: does not use what type of physical activity do you participate in: none seatbelt use: always do you feel safe at home: Yes additional social history: [place] HPI HPI Chief Complaint: 3m f/u Details: CHERYLE VALENTIN, is a 59 F who presents to the office today for follow-up of her chronic conditions. Also has some concerns. She reports bilateral hand numbness and tingling. Worse in the morning. Works with repetitive hand movement. Has not tried anything for this discomfort. No known history of carpal tunnel. History of hypertension, blood pressure today at 128/86 mmHg. Currently not on any medication. She states that she tries to stay active and pay close attention to her diet. History of borderline diabetes and A1c today is at 6.2 up from 6.1. Currently not on any medication. ROS Const Constitutional: No body ache, chills, excessive sweating, fatigue, fever(s), frequent falls, headache(s), snoring, weakness or change in appetite Eyes Eyes: No blurry vision, change in vision, bulging eyes, floaters, visual disturbances, eye pain or Light sensitivity ENT ENT: No abnormal hearing, ear or mastoid pain, tinnitus, balance problems, nosebleed/epistaxis, nasal congestion, headache(s), neck pain or sore throat Resp Respiratory: No cough, excessive phlegm production, pain on inspiration, shortness of breath, snoring or wheezing Cardio Cardiology: No chest pain at rest, chest pain with exertion, excessive sweating, dyspnea on exertion, lightheadedness, orthopnea or palpitations Gastro GI: No abdominal pain, change in bowel habits, constipation, cramping, diarrhea, nausea/dyspepsia or vomiting Genitourinary-Female: No burning urination, painful urination, urinary incontinence, urinary frequency, suprapubic fullness or side pain Musc Musculoskeletal: No abnormal gait, joint pain, back pain, limited range of motion, muscle weakness, neck pain or numbness Skin Skin: No dry skin, redness, excessive hair growth, yellowing of the eye, lesions, itchy eyes, rash or wounds Neuro Neurology: No abnormal gait, abnormal hearing, behavioral changes, unsteady gait/balance, weakness, frequent falls, headache(s), memory loss, numbness or visual disturbances Psych Psychiatric: No anxiety, No behavioral changes, No change in appetite, No depression, No memory loss and No Thoughts of harming yourself/Others Endo Endocrine: No cold intolerance, excessive sweating, fatigue, flushing, heat intolerance, increased thirst/drinking or increased hunger Aller/Imm Allergy/Immunologic: No itchy eyes, seasonal allergy symptoms, hives or wheezing Jj/Lymp Hematologic/Lymphatic: No easy bleeding o (more content not included)... Normal [facility] Knee 3 Viewson 07-28-2024 Knee 3 Views [facility] [address] [place] [address] Knee 3 Views MR#: [id number] Acct: [id number] Name: CHERYLE VALENTIN Rep #: [id number] : 1965 F 58 From: Vasile Sánchez MD PCP: Dr. Anuja Lorenzana MD Status: DEP AMB Study: Knee 3 Views Date of Exam: 07/28/24 Exam# [id number] Ordering Dr: Ike Mo DO [id number] STUDY: X-RAY - LEFT KNEE REASON FOR EXAM: Female, 58 years old. Left knee pain. TECHNIQUE: 3 views of the left knee. COMPARISON: Left knee radiographs dated 05/01/2024. FINDINGS: Again seen is a left total knee arthroplasty with patellar resurfacing. The orthopedic hardware components are intact. There is no periprosthetic fracture. There is a tiny knee joint effusion. Normal proximal tibiofibular articulation. RAD/Knee 3 Views IMPRESSION: Left total knee arthroplasty, with no periprosthetic fracture. Tiny knee joint effusion. Electronically Signed: Vasile Sánchez MD at 12:14 EST , CC: Dr. Anuja Lorenzana MD; Dr. Ike oM DO Architect Intern: Signed Normal [facility] Orthopedic Visit Reporton Orthopedic Visit Report [facility] [address] [place] [address] OFFICE VISIT Date of Service: 07/28/24 MR#: [id number] Acct: [id number] Name: CHERYLE VALENTIN Rep #: [id number] : 1965 Provider: Dr. Ike geller DO Age/Sex: 58/F Location: [facility] [place] Status: Signed Intake Vital Signs 05/31/24 10:04 Height 5 ft 5 in Intake Visit Reasons: LEFT KNEE Chief Complaint: left knee pain Allergies No Known Allergies Allergy (Verified 07/28/24 10:10) Medications ???Medication ???Instructions ???Recorded ???Confirmed ???Type acetaminophen 500 mg tablet 500 mg PO Q6H PRN 07/28/24 07/28/24 History (Tylenol Extra Strength) PFSH Medical History Flu vaccine need Preoperative evaluation to rule out surgical contraindication Borderline type 2 diabetes mellitus Hypertension History of pain when walking Post-menopausal Wears glasses Wears partial dentures Alcohol use Heartburn Non-smoker Leg cramps History of edema Colon cancer screening Arthritis Surgical History Hx of total knee arthroplasty H/O: Family History Mother Diabetes Brother Diabetes Other Arthritis Social History household members: spouse housing: house number of children: 2 current occupational status: employed Smoking Status: Never smoker alcohol intake: current alcohol intake frequency: holidays/special occasions only Alcohol type: wine substance use type: does not use what type of physical activity do you participate in: none seatbelt use: always do you feel safe at home: Yes additional social history: [place] HPI LEFT KNEE Details: This documentation accurately reflects the service provided and the decisions made by me, Dr. Iek Mo, DO 07/28/24 0807. Part of today???s visit was documented by Gina Armstrong LPN, acting as scribe. CHERYLE VALENTIN is a 58 year old F here today for left knee pain. She had left TKA dos: 03/21/24. She denies recent injury or falls. She complains of left knee pain, swelling and numbness. At times she states her knee feels warm to touch.She states her knee pops when she extends it. She returned to work in June and states since returning to work her knee has been bothering her. She has been taking Tylenol for the pain and using ice, She also does the stretches she learned in PT. Ortho Exam General General: Yes no acute distress Neurologic: Yes alert and Yes oriented x3 Psychologic: Yes reasonable and appropriate Right Knee Patella Translation: 1 Left Knee Date of Surgery: 03/21/24 Skin/Wound: No ecchymosis, No erythema and Yes swelling (mild not out of the ordinary for post op) Homans Sign: No Knee ROM: Yes ROM-Extension -20 to 0 and Yes ROM-Flexion 0-140 (119) Examination: No med jt line tenderness and No Lat jt line tenderness Stability: NML: Anterior Drawer, NML: Junior, NML: Valgus 0, NML: Valgus 30, NML: Varus 0 and NML: Varus 30 Patella Translation: 1 KNEE: no effusion no collateral instability Supplemental Info 05/01/2024 x-ray left knee: Status post press-fit total knee arthroplasty good interfaces and position 03/21/2024: Left total knee arthroplasty: Dr. Mo 02/16/2024 x-ray left knee: Advanced tricompartmental DJD, worse medial compartment 06/15/2023 manipulation under anesthesia right knee 06/14/2023 x-ray right knee: Status post press-fit total knee arthroplasty 05/04/2023 right total knee arthroplasty: Dr. Mo 09/30/2020 x-ray bilateral knees advanced tricompartmental knee arthrosis [id number] medial compartment with varus deformity Coding Level of Care Code Global Post Op Diagnoses Orthopedic aftercare Z47.89 Assessment and Plan Assessment and Plan (1) Orthopedic aftercare: Status: Acute Orders: Orders Knee 3 Views Today M25.562 - Pain in left knee Referrals BMV Disability Parking M17.12 - Unilateral primary osteoarthritis, left knee, M24.661 - Ankylosis, right knee Plan Patient is here today for left knee pain and numbness. I did advised patient that there will always be a patch of numbness on the lateral knee knee. I also advised patient that over time her knee will get better and informed her that it can take up to 2 years to completely heal from a knee replacement. She can use heat or a compression sleeve on the knee if she would like. She could also try 4grmas of Voltaren gel 4 times a day for the knee pain and to help with her scar she can use vitamin E oil. Follow up as needed or sooner if pain, swelling, numbness or associated symptoms, or concerns d (more content not included)... Normal [facility] Orthopedic Visit Reporton Orthopedic Visit Report [facility] [address] [place] [address] OFFICE VISIT Date of Service: 06/12/24 MR#: [id number] Acct: [id number] Name: CHERYLE VALENTIN Rep #: [id number] : 1965 Provider: Dr. Ike geller DO Age/Sex: 58/F Location: [facility] [place] Status: Signed Intake Vital Signs 03/21/24 06:30 05/31/24 10:04 Height 5 ft 5 in 5 ft 5 in Weight: 223 lb 6 oz BMI 37.1 BP 138/80 H Blood Pressure Location Lt brachial Position Sitting Respiration 16 Pulse 89 Pulse Source Monitor Temp 97.9 F Temp Source Temporal Pulse Oximetry (%) 98 Oxygen Delivery Method room air Intake Visit Reasons: LEFT KNEE Chief Complaint: 3m f/u Accompanied by: Self Is patient in pain?: Yes Pain scale (1-10): 2 Allergies No Known Allergies Allergy (Verified 05/31/24 10:00) Medications ???Medication ???Instructions ???Recorded ???Confirmed ???Type naproxen sodium 220 mg tablet 220 mg PO BID PRN 06/12/24 06/12/24 History (Aleve) PFSH Medical History Flu vaccine need Preoperative evaluation to rule out surgical contraindication Borderline type 2 diabetes mellitus Hypertension History of pain when walking Post-menopausal Wears glasses Wears partial dentures Alcohol use Heartburn Non-smoker Leg cramps History of edema Colon cancer screening Arthritis Surgical History Hx of total knee arthroplasty H/O: Family History Mother Diabetes Brother Diabetes Other Arthritis Social History household members: spouse housing: house number of children: 2 current occupational status: employed Smoking Status: Never smoker alcohol intake: current alcohol intake frequency: holidays/special occasions only Alcohol type: wine substance use type: does not use what type of physical activity do you participate in: none seatbelt use: always do you feel safe at home: Yes additional social history: [employer] G[place]BLE LEFT KNEE Details: This documentation accurately reflects the service provided and the decisions made by me, Dr. Ike Mo, DO 06/12/24821. Part of today???s visit was documented by [ ], acting as scribe. CHERYLE VALENTIN is a 58 year old F here today for 12 week post-op left TKA dos: 03/21/24. Patient states she is having tightness in her knee and her calf muscles. Patient last day in PT was Jun 08. Patient is still using a cane when she walks. Patient is taking Aleve as needed for pain. Patient is requesting a clearance that she is able to go back to work. Ortho Exam General General: Yes no acute distress Neurologic: Yes alert and Yes oriented x3 Psychologic: Yes reasonable and appropriate Left Knee Skin/Wound: No ecchymosis, No erythema and Yes swelling Homans Sign: No KNEE: no effusion No concerning cellulitis no signs of infection or DVT range of motion 0-120 no crepitation or instability of the collateral ligaments No gross motor or sensory deficits Supplemental Info 05/01/2024 x-ray left knee: Status post press-fit total knee arthroplasty good interfaces and position 03/21/2024: Left total knee arthroplasty: Dr. Mo 02/16/2024 x-ray left knee: Advanced tricompartmental DJD, worse medial compartment 06/15/2023 manipulation under anesthesia right knee 06/14/2023 x-ray right knee: Status post press-fit total knee arthroplasty 05/04/2023 right total knee arthroplasty: Dr. Mo 09/30/2020 x-ray bilateral knees advanced tricompartmental knee arthrosis [id number] medial compartment with varus deformity Coding Level of Care Code Global Post Op Diagnoses Orthopedic aftercare Z47.89 Assessment and Plan Assessment and Plan (1) Orthopedic aftercare: Status: Acute Plan Patient is here for 12 week post-op. patient is doing very well and her ROM is great. Patient would like to go back to work which I am fine with. We will fill out her return to work paper work and get it to her work. I did remind patient that if she needs any detal work to call the office for an antibiotic prescription. Follow up for 1 year post-op with xray or sooner if pain, swelling, numbness or associated symptoms, or concerns develop. All questions answered. Patient in agreement of plan. 06/12/24 1153 Date Ike Pino Signature: Date (if applicable) CC: Greta [facility] Internal Medicine Office Vis kade 05-31-2024 Internal Medicine Office Visit [facility] [address] [place] [address] [address] [place] [address] OFFICE VISIT Date of Service: 05/31/24 MR#: [id number] Acct: [id number] Name: CHERYLE VALENTIN Rep #: [id number] : 1965 Provider: Dr. Anuja castillo MD Age/Sex: 58/F Location: [facility] [place].[facility] Status: Signed Intake Vital Signs 02/28/24 09:54 03/21/24 06:30 05/31/24 10:04 Height 5 ft 5 in 5 ft 5 in 5 ft 5 in Weight: 223 lb 6 oz BMI 37.1 BP 138/80 H Blood Pressure Location Lt brachial Position Sitting Respiration 16 Pulse 89 Pulse Source Monitor Temp 97.9 F Temp Source Temporal Pulse Oximetry (%) 98 Oxygen Delivery Method room air Intake Visit Reasons: 3 M FU Chief Complaint: 3m f/u Marker Machine Required: No Accompanied by: Self Is patient in pain?: Yes (left knee ) Pain scale (1-10): 2 Allergies No Known Allergies Allergy (Verified 05/31/24 10:00) Medications ???Medication ???Instructions ???Recorded ???Confirmed ???Type NK 05/31/24 05/31/24 History PFSH Medical History (Updated 05/31/24 @ 12:[address] Anuja Lorenzana MD) Flu vaccine need Preoperative evaluation to rule out surgical contraindication Borderline type 2 diabetes mellitus Hypertension History of pain when walking Post-menopausal Wears glasses Wears partial dentures Alcohol use Heartburn Non-smoker Leg cramps History of edema Colon cancer screening Arthritis Surgical History Hx of total knee arthroplasty H/O: Family History Mother Diabetes Brother Diabetes Other Arthritis Social History household members: spouse housing: house number of children: 2 current occupational status: employed Smoking Status: Never smoker alcohol intake: current alcohol intake frequency: holidays/special occasions only Alcohol type: wine substance use type: does not use what type of physical activity do you participate in: none seatbelt use: always do you feel safe at home: Yes additional social history: [facility] HPI HPI Chief Complaint: 3m f/u Details: CHERYLE VALENTIN, is a 58 F who presents to the office today for follow-up of her chronic medical conditions. No acute concerns at this time. Status post left knee replacement. Surgery was uneventful. Currently still in therapy with some improvement. Walks with a cane. A1c is at 6.1 up from 5.9. Currently not on any medication. She states that through her recovery process, she was less active and admits that she has been eating more sweets. Plans to make changes. Also history of hypertension and blood pressure today is at 138/80 mmHg. Currently not on any medication. No chest pain, palpitation or shortness of breath. ROS Const Constitutional: No body ache, chills, excessive sweating, fatigue, fever(s), frequent falls, headache(s), snoring, weakness or change in appetite Eyes Eyes: No blurry vision, change in vision, bulging eyes, floaters, visual disturbances, eye pain or Light sensitivity ENT ENT: No abnormal hearing, ear or mastoid pain, tinnitus, balance problems, nosebleed/epistaxis, nasal congestion, headache(s), neck pain or sore throat Resp Respiratory: No cough, excessive phlegm production, pain on inspiration, shortness of breath, snoring or wheezing Cardio Cardiology: No chest pain at rest, chest pain with exertion, excessive sweating, dyspnea on exertion, lightheadedness, orthopnea or palpitations Gastro GI: No abdominal pain, change in bowel habits, constipation, cramping, diarrhea, nausea/dyspepsia or vomiting Genitourinary-Female: No burning urination, painful urination, urinary incontinence, urinary frequency, suprapubic fullness or side pain Musc Musculoskeletal: No abnormal gait, joint pain, back pain, limited range of motion, muscle weakness, neck pain or numbness Skin Skin: No dry skin, redness, excessive hair growth, yellowing of the eye, lesions, itchy eyes, rash or wounds Neuro Neurology: No abnormal gait, abnormal hearing, confusion, unsteady gait/balance, weakness, frequent falls, headache(s), memory loss, numbness or visual disturbances Psych Psychiatric: No anxiety, No change in appetite, No confusion, No depression, No memory loss and No Thoughts of harming yourself/Others Endo Endocrine: No cold intolerance, excessive sweating, fatigue, flushing, heat intolerance, increased thirst/drinking or increased hunger Aller/Imm Allergy/Immunologic: No itchy eyes, seasonal allergy symptoms, hives or wheezing Jj/Lymp Hematologic/Lymphatic: No easy bleeding or easy bruising Exam Const General: cooperative, comfortable and no acute distress Orientation: alert, awake and oriente (more content not included)... Normal [facility] Knee 3 Viewson 05-01-2024 Knee 3 Views [facility] [address] [place] [address] Knee 3 Views MR#: [id number] Acct: [id number] Name: CHERYLE VALENTIN Rep #: [id number] : 1965 F 58 From: Gama ponce MD PCP: Dr. Anuja Lorenzana MD Status: DEP AMB Study: Knee 3 Views Date of Exam: 05/01/24 Exam# [id number] Ordering Dr: Ike Mo DO [id number] INDICATION: pain EXAMINATION/TECHNIQUE: X-RAY - LEFT XR Knee 3 Views COMPARISON: None. FINDINGS: No acute fracture or malalignment. Status post total knee arthroplasty. No joint effusion. The soft tissues are unremarkable. RAD/Knee 3 Views IMPRESSION: No acute radiographic abnormalities. Status post total knee arthroplasty. Electronically Signed: Gama Nixon MD at 20:27 EDT , CC: Dr. Anuja Lorenzana MD; Dr. Ike Mo DO Architect Intern: Signed Normal [facility] Orthopedic Visit Reporton Orthopedic Visit Report [facility] [address] [place] [address] OFFICE VISIT Date of Service: 05/01/24 MR#: [id number] Acct: [id number] Name: CHERYLE VALENTIN Rep #: [id number] : 1965 Provider: Dr. Ike geller DO Age/Sex: 58/F Location: [facility] [place] Status: Signed Intake Vital Signs 06/15/23 13:39 03/21/24 06:30 Height 5 ft 5.5 in 5 ft 5 in Intake Visit Reasons: left knee Chief Complaint: 6 week post-op Allergies No Known Allergies Allergy (Verified 05/01/24 10:17) Medications ???Medication ???Instructions ???Recorded ???Confirmed ???Type acetaminophen 500 mg tablet 1,000 mg (2 x 500 mg) PO Q6H PRN 05/04/23 05/01/24 Rx #100 tabs acetaminophen 500 mg tablet 1,000 mg (2 x 500 mg) PO Q6H #100 03/21/24 05/01/24 Rx tabs oxycodone 5 mg tablet 5 - 10 mg (1 - 2 x 5 mg) PO Q6H 03/21/24 05/01/24 Rx PRN pain 7 days #60 tabs PFSH Medical History Preoperative evaluation to rule out surgical contraindication Borderline type 2 diabetes mellitus Hypertension History of pain when walking Post-menopausal Wears glasses Wears partial dentures Alcohol use Heartburn Non-smoker Leg cramps History of edema Colon cancer screening Arthritis Surgical History Hx of total knee arthroplasty H/O: Family History Mother Diabetes Brother Diabetes Other Arthritis Social History household members: spouse housing: house number of children: 2 current occupational status: employed Smoking Status: Never smoker alcohol intake: current alcohol intake frequency: holidays/special occasions only Alcohol type: wine substance use type: does not use what type of physical activity do you participate in: none seatbelt use: always do you feel safe at home: Yes additional social history: [place] HPI left knee Details: This documentation accurately reflects the service provided and the decisions made by me, Dr. Ike Mo, DO 05/01/24 0803. Part of today???s visit was documented by Traci BADILLO, acting as scribe. CHERYLE VALENTIN is a 58 year old F here today for 6 weeks post-op left TKA dos: 03/21/24. She states that is doing well and doesn't have much pain but does have a lot of tightness in the knee. She is ambulating with a cane. She is takes her oxycodone and Tylenol before physical therapy. She does have some warmth to the knee. Denies redness, fever or chills. Ortho Exam General General: Yes no acute distress Neurologic: Yes alert and Yes oriented x3 Psychologic: Yes reasonable and appropriate Left Knee Date of Surgery: 03/21/24 Skin/Wound: Yes healed, No ecchymosis, No erythema and Yes swelling Knee ROM: Yes ROM-Extension -20 to 0 (-8) and Yes ROM-Flexion 0-140 (104) Examination: No med jt line tenderness Stability: NML: Valgus 0, NML: Valgus 30, NML: Varus 0 and NML: Varus 30 KNEE: no effusion, soft tissue swelling improving appropriate for 6 weeks postop no signs of DVT neurovascular intact Supplemental Info 05/01/2024 x-ray left knee: Status post press-fit total knee arthroplasty good interfaces and position 03/21/2024: Left total knee arthroplasty: Dr. Mo 02/16/2024 x-ray left knee: Advanced tricompartmental DJD, worse medial compartment 06/15/2023 manipulation under anesthesia right knee 06/14/2023 x-ray right knee: Status post press-fit total knee arthroplasty 05/04/2023 right total knee arthroplasty: Dr. Mo 09/30/2020 x-ray bilateral knees advanced tricompartmental knee arthrosis [id number] medial compartment with varus deformity Coding Level of Care Code Global Post Op Diagnoses Orthopedic aftercare Z47.89 Assessment and Plan Assessment and Plan (1) Orthopedic aftercare: Status: Acute Orders: Orders Knee 3 Views Today Z96.652 - Presence of left artificial knee joint Referrals Physical Therapy Referral Z96.652 - Presence of left artificial knee joint Plan X-rays were reviewed. There is no obvious fracture, dislocation, or lucency noted. Spoke with patient that her xrays show good placement of the hardware. Spoke with patient that she continue to work on her ROM. Advised patient to keep working on her ROM as she does have some stiffness. Advised patient that now that she is off the blood thinner she can start taking Ibuprofen to help with the inflammation and swelling in the knee. Patient states her last PT appointment is today and I would like to continue with physical therapy so we will put in another order for therapy. Discussed with patient that if she has any dental work coming up to call the offi (more content not included)... Normal [facility] Orthopedic Visit Reporton Orthopedic Visit Report [facility] [place] [address] OFFICE VISIT Date of Service: 04/03/24 MR#: [id number] Acct: [id number] Name: CHERYLE VALENTIN Rep #: [id number] : 1965 Provider: Dr. Ike geller DO Age/Sex: 58/F Location: [facility] [place] Status: Signed Intake Vital Signs 06/15/23 13:39 03/21/24 06:30 Height 5 ft 5.5 in 5 ft 5 in Intake Visit Reasons: LEFT KNEE Chief Complaint: 2 week post-op Accompanied by: Mother Is patient in pain?: Yes Allergies No Known Allergies Allergy (Verified 04/03/24 10:15) Medications ???Medication ???Instructions ???Recorded ???Confirmed ???Type acetaminophen 500 mg tablet 1,000 mg (2 x 500 mg) PO Q6H PRN 05/04/23 04/03/24 Rx #100 tabs acetaminophen 500 mg tablet 1,000 mg (2 x 500 mg) PO Q6H #100 03/21/24 04/03/24 Rx tabs apixaban 2.5 mg tablet (Eliquis) 2.5 mg PO BID #28 tabs 03/21/24 04/03/24 Rx cephalexin 500 mg capsule 1,000 mg (2 x 500 mg) PO Q8H #4 03/21/24 04/03/24 Rx caps oxycodone 5 mg tablet 5 - 10 mg (1 - 2 x 5 mg) PO Q6H 03/21/24 04/03/24 Rx PRN pain 7 days #60 tabs oxycodone 5 mg tablet 5 - 10 mg (1 - 2 x 5 mg) PO Q6H 04/03/24 04/03/24 Rx PRN Pain Score 6-10/10 7 days #56 tabs PFSH Medical History Preoperative evaluation to rule out surgical contraindication Borderline type 2 diabetes mellitus Hypertension History of pain when walking Post-menopausal Wears glasses Wears partial dentures Alcohol use Heartburn Non-smoker Leg cramps History of edema Colon cancer screening Arthritis Surgical History Hx of total knee arthroplasty H/O: Family History Mother Diabetes Brother Diabetes Other Arthritis Social History household members: spouse housing: house number of children: 2 current occupational status: employed Smoking Status: Never smoker alcohol intake: current alcohol intake frequency: holidays/special occasions only Alcohol type: wine substance use type: does not use what type of physical activity do you participate in: none seatbelt use: always do you feel safe at home: Yes additional social history: [employer] GAMBLE LEFT KNEE Details: This documentation accurately reflects the service provided and the decisions made by me, Dr. Ike Mo, DO 04/03/24 0758. Part of today???s visit was documented by Emerald Javier [employer], acting as scribe. CHERYLE VALENTIN is a 58 year old F here today for s/p Left total knee arthroplasty CT guided Robotic Assisted DOS 03/21/2024. Patient states her knee is pretty painful today. Patient states the incision looks good but she states there is blister above the knee. Patient states the calf is pretty tight and hurts when she walks. Patient states she is doing physical therapy 3 times a week and has an appointment today. She complains of more pain in the top of her calf than in her knee. Ortho Exam General General: Yes no acute distress and Yes well groomed Neurologic: Yes alert and Yes oriented x3 Psychologic: Yes reasonable and appropriate Right Knee Patella Translation: 1 Left Knee Skin/Wound: Yes CDI, Yes healing, Yes suture/papito removed, Yes ecchymosis, No erythema and Yes swelling Homans Sign: Yes Knee ROM: No ROM-Extension -20 to 0 (15) and No ROM-Flexion 0-140 (80) Stability: NML: Anterior Drawer, NML: Posterior Drawer, NML: Valgus 0 and NML: Valgus 30 Patella Translation: 1 KNEE: swelling and calf tenderness lacking 15 of EXT with stiffness FLEX 80 Supplemental Info 03/21/2024: Left total knee arthroplasty: Dr. Mo 02/16/2024 x-ray left knee: Advanced tricompartmental DJD, worse medial compartment 06/15/2023 manipulation under anesthesia right knee 06/14/2023 x-ray right knee: Status post press-fit total knee arthroplasty 05/04/2023 right total knee arthroplasty: Dr. Mo 09/30/2020 x-ray bilateral knees advanced tricompartmental knee arthrosis [id number] medial compartment with varus deformity Coding Level of Care Code Global Post Op Diagnoses Orthopedic aftercare Z47.89 Assessment and Plan Assessment and Plan (1) Orthopedic aftercare: Status: Acute Orders: Orders Other BP Soft Tissue Today Z96.652 - Presence of left artificial knee joint Venous Duplex US, Unilateral Today M79.662 - Pain in left lower leg Medications: New oxycodone 5 - 10 mg (1 - 2 x 5 mg) PO Q6H PRN 56 tabs 0RF Pain Score 6-10/10 7 days G89.18 - Other acute postprocedural pain Plan Explained to patient that we should check her for a blood clot with ultrasound at the hospital. Will orde (more content not included)... Normal [facility] Venous Duplex US, Unilateral on 04-03-2024 Venous Duplex US, Unilateral [facility] [address] [place] [address] Venous Duplex US, Unilateral 04/03/24 1115 MR#: [id number] Acct: [id number] Name: CHERYLE VALENTIN Rep #: [id number] : 1965 58 From: Jacob Nicholson MD Attending Dr: Dr. Ike Mo DO Status: RE G CLI Ordering Dr: Ike Mo DO Date: 04/03/24 Location: [facility] Sex: F A Admitted: Reason For Study: Left leg pain RIGHT LEFT CFV is compressible, spontaneous, phasic, GSV is normal. competent and demonstrates normal CFV is compressible, spontaneous, phasic, augmentation. competent, and demonstrates normal Procedure augmentation. This is a venous duplex using B-mode, color FV is compressible, spontaneous, phasic, flow and spectral Doppler. competent and demonstrates normal Exam performed in department. augmentation. A preliminary report was called and/or faxed POP V is compressible, spontaneous, phasic, to Dr. Mo. competent and demonstrates normal augmentation. T/P Trunk is compressible. PTV is compressible. LT PerV is compressible. VL/Venous Duplex US, Unilateral Interpretation Summary Deep veins of the left lower extremity are patent and compressible segmentally. There is no evidence of left lower extremity deep vein thrombosis. The left great saphenous vein appears patent and compressible segmentally. Ordering Physician: Ike Mo Referring Physician: Anuja Lorenzana Performed By: Faith Bob RVT 04/03/24 1513 Date Jacob Nicholson MD CC: Dr. Anuja Lorenzana MD; Dr. Ike Mo DO Date Dictated: 04/03/24 1115 Date Transcribed: 04/03/24 1513 Architect Intern: Signed Normal [facility] Inital Evaluation (1) - PTon 03-27-2024 Inital Evaluation (1) - PT [facility] Physical Therapy Health[address] [place] [address] / REHABILITATION SERVICES INITIAL EVALUATION MR#: [id number] Acct: [id number] Name: CHERYLE VALENTIN Rep #: [id number] : 1965 58 From: Khang Coreas DPT Referring Dr.: Dr. Ike Mo DO Status: R EG RCR Insurance: [employer] SELF PAY INSURANCE Patient's Visit Information Visit Information Visit Information: CHERYLE VALENTIN is a 58 year old F referred to Physical Therapy by Dr. Ike Mo DO with a diagnosis of L TKA, DOS: 03/21/24. Date of Evaluation: 03/24/24 Physical Therapist: Khang Coreas, DPT Visit Plan Frequency: 3x /Week Duration: 6 Weeks Plan: Start with L knee ROM progressing extension and flexion towards end ranges. May use Vaso and ice initially to reduce edema. Progress functional mobility and gait with LRD. Subjective Subjective: Pt. is here today for her initial evaluation with diagnosis L TKA, DOS: 03/21/24. Pt. arrives with use of WC, but has been using FWW at home. Pt. reports having high levels of pain, but has been trying to complete her HEP as indicated. Pt. is icing and taking medications as prescribed. Pt. did have the Iovera injection as well. She is sleeping, but her knee does wake her up at night. She has been trying her exercises, mostly working on ROM. She is walking short distances in her home. Pt. denies calf pain, no NT noted. Pt. is hopeful to decrease her pain and increase her ROM in order to get back to all recreational and work activities without limitations. Pt. works at [employer] in the [facility]. Pain L knee: Pain Intensity (Out of 10): 6 Pain Intensity Range: 4 and 8 Objective Objective: POSTURE: Pt. is able to stand with FWW, but heavily uses of off load LLE. Pt. has a slight lack of TKE in stance, uses FWW for balance. PALPATION: bandage removed, no signs of infection, no major drainage noted. Mckee in place. NEURO: normal throughout. ROM: L knee: 0-8-78deg. PROM: 0-5-81deg. Pain as limiting factor. No end feel felt. MMT: RLE: knee: ext 22.4#, flexion 17.3#; hip: flexion 18.9#. LLE: knee: ext 4#, flexion 7#; hip: flexion 0#. GAIT: Pt. is able to ambulate with FWW,but has flexed posture, and heavily uses AD to stabilize. TU.1 sec with FWW. Balance/Special Test Scores TUG Test Time Seconds: 49.1 30 Second Chair Rise Test Seconds: 4 WOMAC Total Score: 76 WOMAC Percentatge: 20.8400 Goals Goal 1:: LTG: Pt. to be I with HEP. Goal Time Frame: 4-6 Weeks Goal 2:: STG: Pt. to have increased L knee ROM to 0-0-120deg allowing for good tolerance to all functional mobility. Goal Time Frame: 2-4 Weeks Goal 3:: LTG: Pt. to have increased LLE strength symmetrical to R side. Goal Time Frame: 6-8 Weeks Goal 4:: STG: Pt. to have symmetrical girth of LLE to RLE indicating decreased edema in LLE. Goal Time Frame: 2-4 Weeks Goal 5:: LTG: Pt. to ambulate with out AD with normal gait pattern and no increase in L knee pain. Goal Time Frame: 4-6 Weeks Goal 6:: LTG: Pt. to have decreased TUG time to less than 10 seconds indicating improved functional mobility. Goal Time Frame: 4-6 Weeks Rehabilitation Potential Physical Therapy Diagnosis: Pt. has signs and symptoms consistent with L TKA with marked hypomobility, weakness, difficulty walking and increased swelling. Pt. would benefit form PT to address the above limitations progressing back to all work and recreational activities without limitations. Rehabilitation Potential: Excellent Anticipated Interventions Patient/Client Instruction: Educate patient on: Condition, Plan of Care, Risk Factors and Benefits of Fitness Program For the Purpose of:: To facilitate caregiver knowledge, To improve self management, To prevent re- injury, To improve ability to perform tasks related to life management and To improve tolerance to ADL's Therapeutic Exercise to Include: Strength training, Power training, Endurance training, Balance training, Flexibilty training, Gait and locomotor training, Passive ROM and Active ROM For the Purpose of:: To decrease pain, To decrease swelling/inflammation, To increase ROM, To improve nutrient delivery to tissue, To increase oxygenation perfusion, To improve muscle performance and motor function, To improve gait and locomotor functions, To improve health of tissue, To decrease soft tissue restriction and To increase flexibility/ROM Manual Therapy Techniques to Include: Mobilization and Passive ROM For the Purpose of:: To decrease pain, To decrease swelling/inflammation, To increase ROM, To improve nutrient delivery to tissue, To improve gait and locomotor functions, To improve health of tissue, To decrease soft tissue restriction and To increase flexibility/ROM Cryotherapy (ice pack, ice massage): Yes Vasopneumatic device: Yes For the Purpose of:: To (more content not included)... Normal [facility] MR/POSTOP.ANEon 03-22-2024 MR/POSTOP.[facility] Medical Records Department [address] [place] [address] Anesthesia Postop Eval I 03/22/24921 MR#: [id number] Acct: [id number] Name: CHERYLE VALENTIN Rep #: [id number] : 1965 58 From: Oskar Heck MD PCP: Dr. Anuja Lorenzana MD Status:[facility] Y Race: A Location: [facility] [place] Anesthesia: Postop Eval I Current Vital Signs Temperature: 97 F Pulse Rate: 82 Blood Pressure: 122/80 Respiratory Rate: 16 Pulse Ox: 96 Oxygen Delivery Method: Room Air Assessment Airway patent: Yes Spontaneous unlabored respirations: Yes Mental status: Awake nausea: No Vomiting: No Anesthesia Complication: No Fluid Hydration Crystalloid volume administer (ml): 600 Total IV fluid infused: 600 Progress Note Anesthesia document: Postop Eval 1 completed: Yes 03/22/24923 Date Oskar Heck MD Cosigner Signature: Date CC: Signed Normal [facility] Bedside Glucoseon 03-21-2024 FINGERSTICK GLU 122 mg/dL High 74-[address] [facility] Comment on above: Result Comment: ALEXSANDRA GEMENT OF PATIENT CARE PER NURSING PROTOCOL Performed By: #### L 501.080 ####[facility] [address] [place], [id number] FINGERSTICK GLU 218 mg/dL High 74-[address] [facility] Comment on above: Result Comment: ALEXSANDRA DO OF PATIENT CARE PER NURSING PROTOCOL Performed By: #### L 501.080 ####[facility] [address] [place], [place], [id number] CD3 (initial)on 03-21-2024 CD3 (initial) ---- Patient Age/Sex Location Account Attending Physician CHERYLE VALENTIN 58/F [facility] [place] [id number] Dr. Ike Mo, DO Specimen: [id number] Received: 03/24/24 Status: PRERNA Crawford Num: [id number] Spec Type: IMMUNO Subm Dr: Dr. Ike Mo, PHYSICIAN INSTITUTION [place] [address] SPECIMEN INFORMATION: Tissue Source: Bone and tissue left knee Clinical Info: Left knee degenerative joint disease Specimen Number: [id number] CPT code: 56048,24211v1 METHODOLOGY: Deparaffinized sections of prefer/formalin-fixed tissue or PAP/DQ stained slides are incubated with monoclonal/polyclonal antibodies/oligonucleoti de probes. Localization is made via biotin free immunoperoxidase method. Appropriate controls are performed and reacted as expected. Results on target cell population are indicated in the following table: RESULTS: ANTIBODY / CLONE RESULT Block 2 CD3 (PS1) positive CD5 (SP10) positive CD20 (L26) positive CD45 (RP2/18) positive CD79a (11E3) positive BCL-2 (bcl-2/100/D5) negative These tests were developed and their performance characteristics determined by [facility]. They may not have been cleared or approved by the U.S. Food and Drug Administration. The FDA has determined that such clearance or approval is not necessary. The above immunohistochemical/dual YANICK markers are ordered and reviewed by the Pathologist. INTERPRETATION: Bone and tissue left knee, replacement: Polytypic lymphoid tissue. AM/mr 03/27/2024 Signed (signature on file) Dr. Mika Hernandez, DO 03/27/[address] [facility] Comment on above: Performed By: #### P CD3 #### [facility] [address] [place], [place], [address] Decalcification bone/plaqueo n 03-21-2024 Decalcification bone/plaque Patient Age/Sex Location Account Attending Physician HOMEROCHERYLE MALINDA 58/ [facility] [place] [id number] Dr. Ike Mo DO Specimen: [id number] Received: 03/21/24 Status: PRERNA Crawford Num: [id number] Spec Type: TOTAL KNEE Subm Dr: Dr. Ike Mo DO [facility] OPERATION: Left total knee replacement robotic arm assisted PRE-OP DIAGNOSIS: Left knee degenerative joint disease TISSUE SUBMITTED: Bone and tissue left knee MICROSCOPIC DIAGNOSIS Bone and tissue of left knee, total knee resection: Severe degenerative joint disease. Loose body with polytypic lymphoid aggregates. See comment. AM: 03/24/2024 COMMENT Immunohistochemistry ([id number]) supports the above diagnosis. Case has been reviewed in consultation with Dr. Torres who concurs with the above diagnosis. IDC:[id number] MICROSCOPIC DESCRIPTION Slides are reviewed. GROSS DESCRIPTION Received is one container designated bone and soft tissue left knee. The specimen consists of multiple fragments of mills-yellow bone measuring in aggregate 11.0 x 7.0 x 2.5 cm. A piece of bone consistent with loose body also present in the container measuring 2.0 x 2.0 x 1.5cm. No soft tissue is identified. A number of bony fragments contain articular surfaces consistent with tibial plateau and femoral condyle and displaying prominent osteophyte formation, eburnation and bone erosion. Transformer Shop Supervisor sections are submitted in two cassettes after decalcification. Cassette 2 contains loose body. / GABBY/ 03/21/2024 TC:5 [facility]: [address], [address] Patient Age/Sex Location Account Attending Physician CHERYLE VALENTIN 58/F [facility] [place] [id number] Dr. Ike Mo DO Signed (signature on file) Dr. Mika Hernandez DO 03/27/[address] [facility] Comment on above: Performed By: #### P DEC ####[facility] [address] [place], [address] Discharge Instructionon 02-22 Discharge Instruction [facility] Medical Records Department [address] [place] [address] Instructions for Home/Discharge Instructions 03/21/24 1055 MR#: [id number] Acct: [id number] Name: CHERYLE VALENTIN Rep #: [id number] : 1965 58 From: Ike Mo DO PCP: Dr. Anuja Lorenzana MD Status:REG [facility] Discharge Instructions Diet Discharge Diet: No restrictions (however Avoid excessive sweets as increased blood sugars around the time of surgery can increase risk of infection) Activity Weight Bearing Status: Weight bearing as tolerated Dressing / Incision Call your doctor if you observe: Shortness of breath and Chest pain Additional Dressing/Incision Instructions:: Ice and elevate lower extremities 2 weeks while not ambulating. Ambulation is encouraged. Weight bearing as tolerated. Use assistive devise for stability. Encourage FULL knee extension and flexion 1 time EVERY time you get up and down and MULTIPLE times per day. No showering until 72 hours after surgery. Begin showering postop day #3. Remove the dressing prior to shower and gently wash with warm water and antibacterial soap then pat dry and place abdominal pad (or plain gauze) and EMILY hose over top. This is to be done daily. Do not submerge for 3 weeks. If not showering daily after the initial 72 hours then you must clean incision and change dressing daily. Do not allow animals near the incision area. Keep clean. Follow anti-coagulation recommendations as prescribed. Do not take any NSAIDs while on blood thinner. Do not take any additional narcotic pain medication other than what was prescribed on your surgery day without discussing with physician. Narcotic medication can be addictive. Do not drink alcohol while taking narcotics. Supplement narcotic prescription with acetaminophen 1000 mg 4 times a day. Start physical therapy. If you are not currently scheduled for physical therapy or you are unsure of appointment time please call office DODIE to arrange. Call Dr. Mo with any concerns. Follow Up Care Please Follow Up With: Ike Mo DO When: 2 weeks Test Results: Test results from this visit will be discussed in further detail at your follow-up appointment, if applicable. Discharge Plan Admission Primary Reason for Your Visit: Left total knee arthroplasty Attending Provider: Ike Mo Primary Care Provider: Anuja Lorenzana Instructions Print Language: Congolese Discharge Orders/Prescriptions Prescriptions: New acetaminophen 500 mg tablet 1,000 mg PO Q6H Qty: 100 0RF cephalexin 500 mg capsule 1,000 mg PO Q8H Qty: 4 0RF Rx Instructions: Take 2 tabs before you go to bed and 2 tabs after 5 AM morning after surgery when you wake up oxycodone 5 mg tablet 5 - 10 mg PO Q6H PRN (Reason: pain) 7 Days Qty: 60 0RF Eliquis 2.5 mg tablet 2.5 mg PO BID Qty: 28 0RF Rx Instructions: Begin morning after surgery. No Action acetaminophen [acetaminophen] 500 mg tablet 1,000 mg PO Q6H PRN Qty: 100 0RF Referrals / Follow Up: Anuja Lorenzana MD [Primary Care Provider] - Disposition Disposition (needs filled in before D/C Order can be placed): Home, Self Care 03/21/24 1059 Ike Mo DO CC: Dr. Anuja Lorenzana MD Signed Normal [facility] Knee 1 or 2 Viewson 03-21-20 24 Knee 1 or 2 Views [facility] Imaging Services [address] [place] [address] Knee 1 or 2 Views MR#: [id number] Acct: [id number] Name: CHERYLE VALENTIN Rep #: [id number] : 1965 F 58 From: Keegan hyman MD PCP: Dr. Anuja Lorenzana MD Status: [facility] Study: Knee 1 or 2 Views Date of Exam: 03/21/24 Exam# [id number] Ordering Dr: Ike Mo DO [id number] STUDY: X-RAY - LEFT KNEE REASON FOR EXAM: Female, 58 years old. Post op -- in PACU TECHNIQUE: 2 view(s) of the knee. COMPARISON: Comparison is made with prior study dated February 16, 2024. FINDINGS: Normal visualized distal femur. Normal visualized proximal tibia and fibula. Normal proximal tibiofibular articulation. The patient is status post total knee replacement. There is good alignment. Postoperative soft tissue changes. RAD/Knee 1 or 2 Views IMPRESSION: Status post left total knee replacement. There is good alignment. Postoperative soft tissue changes. Electronically Signed: Keegan Ballard MD at 12:22 EDT Reading Location ID and State: [facility] / [place] , Service support , CC: Dr. Anuja Lorenzana MD; Dr. Ike Mo DO Architect Intern: Signed [facility] MR/[id number] 03-21-2024 MR/POSTOPAN2 [facility] Medical Records Department [address] [place] [address] Anesthesia Postop Eval II 03/21/24 1252 MR#: [id number] Acct: [id number] Name: CHERYLE VALENTIN Rep #: [id number] : 1965 58 From: Jacob Escalante MD PCP: Dr. Anuja Lorenzana MD Status:REG [facility] Y Race: A Location: [place] [address]- Anesthesia Postop Eval I Sum Anesthesia Postop Eval I Summary Anesthesia Postop Eval I Summary: Anesthesia Postop Eval I: Assessment Summary Airway patent Spontaneous unlabored respirations Mental status nausea Vomiting Anesthesia Postop Eval I: Fluid Summary Crystalloid volume administer (ml) Colloids volume administered ( ml) Blood Product volume administered (ml) Total IV fluid infused Anesthesia Postop Eval I: Summary Notes Anesthesia Complication Anesthesia Complication Comment: Post-operative progress note Anesthesia: Postop Eval II Evaluation Mental status: Awake Pain Level: 0 nausea: No Vomiting: No 03/21/24 1252 Date Jacob Escalante MD Cosigner Signature: Date CC: Signed Normal [facility] Operative Reporton 4 Operative Report [facility] Medical Records Department [address] [place] [address] Operative Report 03/21/24 1050 MR#: [id number] Acct: [id number] Name: CHERYLE VALENTIN Rep #: [id number] : 1965 58 From: Ike Mo DO PCP: Dr. Anuja Lorenzana MD Status:[facility] Location: [place] [address] Operative Report Date of Procedure: 03/21/24 Preoperative diagnosis: Left knee DJD Postoperative diagnosis: Same Procedure: Left total knee arthroplasty CT guided Robotic Assisted Implant: [place] triathlon press fit, femoral component size2, tibial baseplate size 2, asymmetric patella size 35, polyethylene X3 size 10 CS Anesthesia: Spinal with adductor canal block Tourniquet time: 20 minutes at 300 mmHg Complications: None Condition: Stable to PACU Estimated blood loss: 150 cc Finance Clerk John Warner. My physician clinical assistant professor was a vital part of this case. He was important in appropriate retraction during the case, and protection of soft tissues during procedure. His intimate knowledge of the case and my steps aided in safe and expedient completion of the procedure as well as appropriate position of the extremity during the case. He was also vital in assisting with closure under my direct supervision. Indication for procedure: This is a 58-year-old female with long standing degenerative joint disease of the knee who has failed conservative treatment and wished to proceed with elective total knee arthroplasty. Risk benefits and alternatives were reviewed including; risk of bleeding, infection, nerve artery and tissue damage, continued pain, postoperative stiffness, venous thromboembolism, need for postoperative rehabilitation, mechanical feel to the knee, and expected postoperative course. The pre- operative CT and templating was performed with component sizing. Procedure: The patient was met in the preoperative holding area. The operative extremity was identified by both patient and physician and was marked. Patient was met by anesthesia. An adductor canal block was placed by anesthesia postoperatively the patient was brought back to the operating room on a wheeled cart and transferred to the operating table in the supine position. Anesthesia was started. A well-padded tourniquet was placed on the operative extremity. The patient was prepped and draped in the usual sterile fashion. A timeout was called to ensure the proper patient procedure and extremity were being contemplated. An esmarch was used to exsanguinate the extremity. The tourniquet was inflated. A 10 blade scalpel was used to make a midline incision down through the skin and subcutaneous tissue. Skin retractors placed. Bovie and Aquamantis were used to perform meticulous hemostasis. full-thickness flaps were elevated medial and lateral along the joint capsule. A deep blade scalpel was used to perform a medial parapatellar arthrotomy. The knee was brought to full extension. A bovie was used to release the soft tissues off the most proximal aspect of the medial tibial plateau, a three-quarter inch curved osteotome was also used in this process. The infrapatellar fat pad was excised. The suprapatellar fat pad was excised partially anteriorolateraly and portion the anterioromedial pad was elevated from the femur. At this point our intra-articular femoral array was placed at a 45 degree angle proximal and posterior to the medial epicondyle. femoral checkpoint was placed at this time. Our tibial array was placed partially intra incisional 1 stab incision was made for the inferior pin , with a 15 blade scalpel and pins were placed and attached to the tibial array , tibial checkpoint was placed in the proximal tibial metaphysis. Tourniquet was let down. At this point registration medina were taken throughout the knee . Once the knee was registered we then tensioned the medial and lateral ligaments in extension and 90 degrees of flexion. We then used these numbers to adjust our components within parameters to balance the knee in both flexion and extension once this was done on our monitor we then proceeded with using the robotic arm to make our tibial plateau cut, anterior and posterior chamfer and distal femur cuts. we removed the cut fragments with the use of a bovie and Kayla, we did use a lamina kitman to insure we visualized and removed all posterior osteophytes and at this time also used the Aquamantis on the posterior joint capsule. we then trialed and achieved the desired plan with a well-balanced knee. we used the green probe to harika the corresponding tibial rotation based on our CT template. Lug holes were drilled in the femur the tibia preparation was completed with the appropriate sized base plate pinned based on previous rotation harika. An appropriate sized fin punch was used on the tibia and 4 corner drill was used for the press fit component and the patella wa (more content not included)... Normal [facility] Fructosamineon 03-11-2024 FRUCTOSAMINE 241 umol/L Normal 0-[address] [facility] Comment on above: Result Comment: Publ ished reference interval for apparently healthy subjects between age 20 and 60 is 205 - 285 umol/L and in a poorly controlled diabetic population is 228 - 563 umol/L with a mean of 396 umol/L. Performed at: [address] [id number] [employer] Laborer: Markos Douglass PhD, Phone: [phone] Performed By: #### B TSPAT, M100.651, L300.4310, L300.3900, L3400.0100 #### [facility] [address] [place], [address] MRSA/SAID NASAL SCREENon MRSA+SAID SCRN Reason for Exam: PRE OP MRSA MRSA Negative S. AUREUS S. aureus Negative Normal [facility] Comment on above: Performed By: #### B TSPAT, M100.651, L300.4310, L300.3900, L3400.0100 ####[facility] [address] [place], [address] Magnesiumon 03-10-2024 Magnesium [Mass/Vol] 2.4 mg/dL Normal 1.6-2.6 [facility] Comment on above: Performed By: #### L 501.5200 ####[facility] [address] [place], [address] Orthopedic Visit Reporton Orthopedic Visit Report [facility] [address] [place] [address] OFFICE VISIT Date of Service: 03/10/24 MR#: [id number] Acct: [id number] Name: CHERYLE VALENTIN Rep #: [id number] : 1965 Provider: Dr. Ike geller DO Age/Sex: 58/F Location: [facility] [place].[facility] Status: Signed Intake Vital Signs 02/28/24 09:54 Height 5 ft 5 in Weight: 217 lb BMI 36.1 BP 144/88 H Blood Pressure Location Lt brachial Position Sitting Respiration 18 Pulse 88 Pulse Source Monitor Temp 97.8 F Temp Source Temporal Pulse Oximetry (%) 96 Oxygen Delivery Method room air Intake Visit Reasons: left knee Allergies No Known Allergies Allergy (Verified 03/10/24 08:28) Medications ???Medication ???Instructions ???Recorded ???Confirmed ???Type acetaminophen 500 mg tablet 1,000 mg (2 x 500 mg) PO Q6H PRN 05/04/23 03/10/24 Rx #100 tabs PFSH Medical History Preoperative evaluation to rule out surgical contraindication Borderline type 2 diabetes mellitus Hypertension History of pain when walking Post-menopausal Wears glasses Wears partial dentures Alcohol use Heartburn Non-smoker Leg cramps History of edema Colon cancer screening Arthritis Surgical History Hx of total knee arthroplasty H/O: Family History Mother Diabetes Brother Diabetes Other Arthritis Social History household members: spouse housing: house number of children: 2 current occupational status: employed Smoking Status: Never smoker alcohol intake: current alcohol intake frequency: holidays/special occasions only Alcohol type: wine substance use type: does not use what type of physical activity do you participate in: none seatbelt use: always do you feel safe at home: Yes additional social history: MAURICE GAMBLE left knee Details: This documentation accurately reflects the service provided and the decisions made by me, Dr. Ike Mo, DO 03/10/24 0823. Part of today???s visit was documented by [ ], acting as scribe. CHERYLE VALENTIN is a 58 year old F here today for left knee IOVERA treatment. Ortho Exam General General: Yes no acute distress Neurologic: Yes alert and Yes oriented x3 Psychologic: Yes reasonable and appropriate Left Knee Skin/Wound: Yes CDI, No ecchymosis, No erythema and Yes swelling 1+: Effusion Knee ROM: Yes ROM-Extension -20 to 0 (-12) and Yes ROM-Flexion 0-140 (105) Examination: Yes med jt line tenderness, Yes Lat jt line tenderness and Yes Crepitus Stability: NML: Anterior Drawer, NML: Valgus 0, NML: Valgus 30, NML: Varus 0 and NML: Varus 30 KNEE: no calf pain, negative homans, normal sensation to light palpation, good ankle range of motion Office Procedures Iovera Procedure Details:: Preoperative diagnosis : Left knee DJD Postoperative diagnosis: Same Procedure: Cryotherapy with Iovera device to anterior femoral cutaneous nerve and 2 branches of the infrapatellar saphenous nerve III nerves in total Description of procedure: Patient was brought back to the procedure room the operative extremity was identified by both patient and physician. The PIP flexion crease was measured to the midpoint of the patella and this distance was divided in 3 resulting in 10 cm location proximal to the midpoint of the patella. This line was extended medial and lateral to the extent of the edges of the patella. This was our treatment line for the anterior femoral cutaneous nerve. A second treatment line was made 5 cm medial to the inferior pole of the patella and 5 cm distally. The leg was prepped with alcohol and Betadine. Lidocaine with epi was used along the treatment lines. Using the Iovera device treatment lines were treated with 1 minute cycles. Reproduction of paresthesias was monitored in the area of nerve distribution. Once all 3 nerves were treated across the 2 treatment lines patient was cleaned and a light dressing with 4 x 4 and Tawanda wrap was applied. Patient tolerated the procedure without complication. Supplemental Info 2023 x-ray left knee: Advanced tricompartmental DJD, worse medial compartment 06/15/2023 manipulation under anesthesia right knee 06/14/2023 x-ray right knee: Status post press-fit total knee arthroplasty 05/04/2023 right total knee arthroplasty: Dr. Mo 09/30/2020 x-ray bilateral knees advanced tricompartmental knee arthrosis [id number] medial compartment with varus deformity Coding Level of Care Code Attention Margaret Diagnoses Chronic pain of left knee M25.562; G89.29 Assessment and Plan Assessment and Plan (1) C (more content not included)... Normal [facility] Partial Thromboplast Timeon 03-10-2024 aPTT Coag (Bld) [Time] 26.6 s Normal 24.1-36.2 [facility] Comment on above: Performed By: #### B TSPAT, M100.651, L300.4310, L300.3900, L3400.0100 #### [facility] [address] [place], [address] Prothrombin Time w/INRon INR Coag (PPP) [Relative time] 1.0 {INR} Normal [facility] Comment on above: Performed By: #### B TSPAT, M100.651, L300.4310, L300.3900, L3400.0100 #### [facility] [address] [place], [address] PT Coag (PPP) [Time] 13.6 s Normal 11.7-14.9 [facility] Comment on above: Performed By: #### B TSPAT, M100.651, L300.4310, L300.3900, L3400.0100 #### [facility] [address] [place], [address] Type AND Screen - PAT ONLYon 03-10-2024 Ab SCREEN GEL Negative Normal [facility] Comment on above: Order Comment: Reaso n for Laboratory Test PREOP [id number] N/A N N S 06 TOTAL KNEE REPLACMENT Performed By: #### B TSPAT, M100.651, L300.4310, L300.3900, L3400.0100 #### [facility] [address] [place], [place], [id number] Extremity Lower without Cont raon 03-08-2024 Extremity Lower without Contra [facility] Imaging Services [address] [place], [place] [id number] Extremity Lower without Contra MR#: [id number] Acct: [id number] Name: CHERYLE VALENTIN Rep #: [id number] : 1965 F 58 From: Keegan hyman MD PCP: Dr. Anuja Lorenzana MD Status: REG CLI Study: Extremity Lower without Contra Date of Exam: 0 03/08/24 Exam# [id number] Ordering Dr: Ike Mo DO [id number] CT LEFT LOWER EXTREMITY WITH 3-D IMAGING CLINICAL INDICATION: left knee surgical planning.CAITLYN technique. TECHNIQUE: Axial CT images of the LEFT lower extremity was performed without IV contrast material. Coronal and sagittal reformats were provided. The protocol utilizes one or more of the following dose reduction techniques: automated exposure control, adjustment of mA and/or kV according to patient size,and/or use of iterative reconstruction technique. RADIATION DOSAGE (If Supplied By Facility): CTDIvol = ( 18.76 ) mGy, DLP = ( 1114.23 ) mGycm COMPARISON: No relevant prior comparison study available FINDINGS: Bones: Imaging of the left hip joint was obtained. No significant joint space narrowing is seen. No evidence of fracture or dislocation. Imaging of the knee joint was obtained. There is a marked degree of medial compartment joint space narrowing with degenerative spur formation along the distal femoral medial condyle as well as the medial tibial plateau. Marked degree of joint space narrowing of the patellofemoral joint with degenerative spur formation. Joint effusion. Imaging of the ankle joint was obtained. There is evidence of a calcaneal spur as well as a spur at the insertion of the Achilles tendon. Soft Tissues: Joint effusion The superficial soft tissues are unremarkable without evidence of edema, hematoma, or foreign body. CT/Extremity Lower without Contra IMPRESSION: Marked degree of joint space narrowing and degenerative spur formation of the medial femoral compartment and of the patellofemoral joint. Electronically Signed: Keegan Ballard MD at 11:59 EDT , CC: Dr. Anuja Lorenzana MD; Dr. Ike Mo DO Architect Intern: Signed Normal [facility] CBC W/Diff, Automatedon 07-0 8-2023 Absolute Lymph 2.60 X10 3/uL Normal 0.83-4.[address] [facility] Comment on above: Performed By: #### L 501.9985, L100.0100, L500.4100, L500.4050 ####[facility] [address] [place], [address] Absolute Neut 3.3 X10 3/uL Normal 2.0-7.[address] [facility] Comment on above: Performed By: #### L 501.9985, L100.0100, L500.4100, L500.4050 ####[facility] [address] [place], [address] Basophils/100 WBC (Bld) 0.6 % Normal 0-[address] [facility] Comment on above: Performed By: #### L 501.9985, L100.0100, L500.4100, L500.4050 ####[facility] [address] [place], [address] Eosinophils/100 WBC (Bld) 4.2 % Normal 0-[address] [facility] Comment on above: Performed By: #### L 501.9985, L100.0100, L500.4100, L500.4050 ####[facility] [address] [place], [address] Erythrocyte distribution width (RBC) [Ratio] 12.5 % Normal 11.6-14.[address] [facility] Comment on above: Performed By: #### L 501.9985, L100.0100, L500.4100, L500.4050 ####[facility] [address] [place], [address] Hematocrit (Bld) [Volume fraction] 44.9 % Normal 37-[address] [facility] Comment on above: Performed By: #### L 501.9985, L100.0100, L500.4100, L500.4050 ####[facility] [address] [place], [address] Hemoglobin (Bld) [Mass/Vol] 14.0 g/dL Normal 12.0-15.[address] [facility] Comment on above: Performed By: #### L 501.9985, L100.0100, L500.4100, L500.4050 ####[facility] [address] [place], [address] IG% 0.300 Normal 0.0-0.[address] [facility] Comment on above: Result Comment: IG% - Immature Granulocytes (promyelocytes, myelocytes and metamyelocytes) > 1% indicates that a LEFT SHIFT is Present. Performed By: #### L 501.9985, L100.0100, L500.4100, L500.4050 ####[facility] [address] [place], [address] Lymphocytes/100 WBC (Bld) 38.7 % Normal 19-[address] [facility] Comment on above: Performed By: #### L 501.9985, L100.0100, L500.4100, L500.4050 ####[facility] [address] [place], [address] MCH (RBC) [Entitic mass] 26.4 pg Low 27.0-32.[address] [facility] Comment on above: Performed By: #### L 501.9985, L100.0100, L500.4100, L500.4050 ####[facility] [address] [place], [address] MCHC (RBC) [Mass/Vol] 31.2 g/dL Low 32-36 [facility] Comment on above: Performed By: #### L 501.9985, L100.0100, L500.4100, L500.4050 ####[facility] [address] [place], [address] MCV (RBC) [Entitic vol] 84.6 fL Normal 81-[address] [facility] Comment on above: Performed By: #### L 501.9985, L100.0100, L500.4100, L500.4050 ####[facility] [address] [place], [address] Monocytes/100 WBC (Bld) 7.0 % Normal 0-[address] [facility] Comment on above: Performed By: #### L 501.9985, L100.0100, L500.4100, L500.4050 ####[facility] [address] [place], [address] Neutrophils/100 WBC (Bld) 49.2 % Normal 47-[address] [facility] Comment on above: Performed By: #### L 501.9985, L100.0100, L500.4100, L500.4050 ####[facility] [address] [place], [address] Nucleated RBC (Bld) [#/Vol] 0 10*3/uL Normal 0-[address] [facility] Comment on above: Performed By: #### L 501.9985, L100.0100, L500.4100, L500.4050 ####[facility] [address] [place], [address] Platelet mean volume (Bld) [Entitic vol] 9.4 fL Normal 6.2-12.[address] [facility] Comment on above: Performed By: #### L 501.9985, L100.0100, L500.4100, L500.4050 ####[facility] [address] [place], [address] Platelets (Bld) [#/Vol] 294 10*3/uL Normal 150-[address] [facility] Comment on above: Performed By: #### L 501.9985, L100.0100, L500.4100, L500.4050 ####[facility] [address] [place], [address] RBC (Bld) [#/Vol] 5.31 10*6/uL Normal 4.2-5.4 [facility] Comment on above: Performed By: #### L 501.9985, L100.0100, L500.4100, L500.4050 ####[facility] [address] [place], [address] RDW SD 37.7 fl Normal 35.1-43.[address] [facility] Comment on above: Performed By: #### L 501.9985, L100.0100, L500.4100, L500.4050 ####[facility] [address] [place], [address] WBC (Bld) [#/Vol] 6.7 10*3/uL Normal 4.4-11.0 [facility] Comment on above: Performed By: #### L 501.9985, L100.0100, L500.4100, L500.4050 ####[facility] [address] [place], [address] Comprehensive Metabolic Prof wvon 02-28-2024 Albumin [Mass/Vol] 3.9 g/dL Normal 3.2-5.0 [facility] Comment on above: Performed By: #### L 501.9985, L100.0100, L500.4100, L500.4050 ####[facility] [address] [place], [address] Albumin/Globulin [Mass ratio] 0.9 {ratio} Normal 0.9-2.[address] [facility] Comment on above: Performed By: #### L 501.9985, L100.0100, L500.4100, L500.4050 ####[facility] [address] [place], [address] ALK P 100 U/L Normal 45-[address] [facility] Comment on above: Performed By: #### L 501.9985, L100.0100, L500.4100, L500.4050 ####[facility] [address] [place], [address] ALT [Catalytic activity/Vol] 27 U/L Normal 13-[address] [facility] Comment on above: Performed By: #### L 501.9985, L100.0100, L500.4100, L500.4050 ####[facility] [address] [place], [address] AST [Catalytic activity/Vol] 23 U/L Normal 15-[address] [facility] Comment on above: Performed By: #### L 501.9985, L100.0100, L500.4100, L500.4050 ####[facility] [address] [place], [address] Bilirubin [Mass/Vol] 0.70 mg/dL Normal 0.20-1.00 [facility] Comment on above: Result Comment: For patients on eltrombopag therapy, use of Dimension Fries TBIL is not recommended. Performed By: #### L 501.9985, L100.0100, L500.4100, L500.4050 ####[facility] [address] [place], [address] BUN/CRE 14.2 RATIO Normal 10-[address] [facility] Comment on above: Performed By: #### L 501.9985, L100.0100, L500.4100, L500.4050 ####[facility] [address] [place], [address] CA,Total 9.4 mg/dL Normal 8.5-10.[address] [facility] Comment on above: Performed By: #### L 501.9985, L100.0100, L500.4100, L500.4050 ####[facility] [address] [place], [address] Chloride [Moles/Vol] 105 mmol/L Normal 98-107 [facility] Comment on above: Performed By: #### L 501.9985, L100.0100, L500.4100, L500.4050 ####[facility] [address] [place], [address] CO2 [Moles/Vol] 28.0 mmol/L Normal 21.0-32.[address] [facility] Comment on above: Performed By: #### L 501.9985, L100.0100, L500.4100, L500.4050 ####[facility] [address] [place], [address] Creatinine [Mass/Vol] 0.84 mg/dL Normal 0.55-1.02 [facility] Comment on above: Result Comment: The validity of the calculated GFR GFRAA in patients over 70 years has not been determined. Clinical correlation is essential. Performed By: #### L 501.9985, L100.0100, L500.4100, L500.4050 ####[facility] [address] [place], [address] EST GFR - AA 88 mL/min Normal >[address] [facility] Comment on above: Result Comment: Afri can Swedish GFR Calc Performed By: #### L 501.9985, L100.0100, L500.4100, L500.4050 ####[facility] [address] [place], [address] GAP 5 Normal 5-[address] [facility] Comment on above: Performed By: #### L 501.9985, L100.0100, L500.4100, L500.4050 ####[facility] [address] [place], [address] GFR/1.73 sq M.predicted among non-blacks MDRD (S/P/Bld) [Vol rate/Area] 73 mL/min/{1.73_m2} Normal >[address] [facility] Comment on above: Result Comment: Non- GFR Calc Performed By: #### L 501.9985, L100.0100, L500.4100, L500.4050 ####[facility] [address] [place], [address] Globulin (S) [Mass/Vol] 4.2 g/dL Normal 2.2-4.[address] [facility] Comment on above: Performed By: #### L 501.9985, L100.0100, L500.4100, L500.4050 ####[facility] [address] [place], [address] Glucose [Mass/Vol] 107 mg/dL High 74-106 [facility] Comment on above: Result Comment: Fast ing Glucose result from 100 to 125 mg/dL suggests IMPAIRED HOMEOSTASIS per A.D.A. criteria. Performed By: #### L 501.9985, L100.0100, L500.4100, L500.4050 ####[facility] [address] [place], [address] Potassium [Moles/Vol] 4.3 mmol/L Normal 3.5-5.1 [facility] Comment on above: Performed By: #### L 501.9985, L100.0100, L500.4100, L500.4050 ####[facility] [address] [place], [address] Sodium [Moles/Vol] 138 mmol/L Normal 136-145 [facility] Comment on above: Performed By: #### L 501.9985, L100.0100, L500.4100, L500.4050 ####[facility] [address] [place], [address] T PROT 8.1 g/dL Normal 6.4-8.[address] [facility] Comment on above: Performed By: #### L 501.9985, L100.0100, L500.4100, L500.4050 ####[facility] [address] [place], [address] Urea nitrogen [Mass/Vol] 12 mg/dL Normal 7-[address] [facility] Comment on above: Performed By: #### L 501.9985, L100.0100, L500.4100, L500.4050 ####[facility] [address] [place], [address] Hemoglobin A1con 02-28-2024 HbA1c (Bld) [Mass fraction] 5.9 % High 3.8-5.[address] [facility] Comment on above: Result Comment: Norm al < 5.7 % Prediabetic 5.7 - 6.4 % Diabetic >or= 6.5 % Please note range changes. Performed By: #### L 501.9985, L100.0100, L500.4100, L500.4050 ####[facility] [address] [place], [address] Internal Medicine Office Vis kade 02-28-2024 Internal Medicine Office Visit [place] [facility] [address] [place] [address] [place] [address] OFFICE VISIT Date of Service: 02/28/24 MR#: [id number] Acct: [id number] Name: CHERYLE VALENTIN Rep #: [id number] : 1965 Provider: Dr. Anuja castillo MD Age/Sex: 58/F Location: [facility] Status: Signed Intake Vital Signs 06/15/23 13:39 02/28/24 09:54 Height 5 ft 5.5 in 5 ft 5 in Weight: 217 lb BMI 36.1 BP 144/88 H Blood Pressure Location Lt brachial Position Sitting Respiration 18 Pulse 88 Pulse Source Monitor Temp 97.8 F Temp Source Temporal Pulse Oximetry (%) 96 Oxygen Delivery Method room air Intake Visit Reasons: SURGICAL CLEARANCE Chief Complaint: Surgical Clearance Is patient in pain?: Yes (9 left knee pain ) Allergies No Known Allergies Allergy (Verified 02/28/24 09:49) Medications ???Medication ???Instructions ???Recorded ???Confirmed ???Type acetaminophen 500 mg tablet 1,000 mg (2 x 500 mg) PO Q6H PRN 05/04/23 02/28/24 Rx #100 tabs PFSH Medical History (Updated 02/28/24 @ 10:[address] Anuja Lorenzana MD) Preoperative evaluation to rule out surgical contraindication Borderline type 2 diabetes mellitus Hypertension History of pain when walking Post-menopausal Wears glasses Wears partial dentures Alcohol use Heartburn Non-smoker Leg cramps History of edema Colon cancer screening Arthritis Surgical History Hx of total knee arthroplasty H/O: Family History Mother Diabetes Brother Diabetes Other Arthritis Social History household members: spouse housing: house number of children: 2 current occupational status: employed Smoking Status: Never smoker alcohol intake: current alcohol intake frequency: holidays/special occasions only Alcohol type: wine substance use type: does not use what type of physical activity do you participate in: none seatbelt use: always do you feel safe at home: Yes additional social history: [facility] HPI HPI Chief Complaint: Surgical Clearance Details: CHERYLE VALENTIN, is a 58 F who presents to the office today for surgical care evaluation. Following up with Ortho and plan is for left knee surgery due to osteoarthritis. Last year, she had right knee surgery which was uneventful. History of borderline diabetes, last A1c was at 5.8. Currently not on any medication. No documented history of hypertension however blood pressure today elevated x 2. Has had some elevated readings in the past but currently not on any medication. She states that she is not exercising largely, due to pain in her knee. No tobacco or alcohol abuse. No chest pain, palpitation or shortness of breath. ROS Const Constitutional: No body ache, chills, excessive sweating, fatigue, fever(s), frequent falls, headache(s), snoring, weight change, sleep problems, abnormal sleep pattern or change in appetite Eyes Eyes: No blurry vision, change in vision, floaters, visual disturbances, eye pain or Light sensitivity ENT ENT: No abnormal hearing, ear or mastoid pain, tinnitus, nosebleed/epistaxis, nasal congestion, headache(s), neck pain or sore throat Resp Respiratory: No cough, excessive phlegm production, pain on inspiration, shortness of breath, snoring or wheezing Cardio Cardiology: No chest pain at rest, chest pain with exertion, excessive sweating, shortness of breath, dyspnea on exertion, lightheadedness, orthopnea or palpitations Gastro GI: No abdominal pain, change in bowel habits, constipation, cramping, diarrhea, nausea/dyspepsia or vomiting Genitourinary-Female: No burning urination, painful urination, urinary incontinence, urinary frequency, suprapubic fullness, side pain, abnormal vaginal bleeding or pelvic pain Musc Musculoskeletal: No abnormal gait, joint pain, back pain, limited range of motion, neck pain, numbness or tingling Skin Skin: No dry skin, redness, excessive hair growth, yellowing of the eye, lesions, itchy eyes, rash or wounds Neuro Neurology: No abnormal gait, abnormal hearing, confusion, unsteady gait/balance, frequent falls, headache(s), memory loss, numbness, tingling or visual disturbances Psych Psychiatric: No abnormal sleep pattern, No anxiety, No change in appetite, No confusion, No irritability, No memory loss and No Thoughts of harming yourself/Others Endo Endocrine: No cold intolerance, excessive sweating, fatigue, flushing, heat intolerance, increased thirst/drinking, increased hunger or weight change Aller/Imm Allergy/Immunologic: No itchy eyes, seasonal allergy symptoms, hives or wheezing Jj/Lymp Hematologic/Lymphatic: No easy bleeding, easy bruising, enla (more content not included)... Normal [facility] Lipid Profileon 02-28-2024 Cholesterol [Mass/Vol] 216 mg/dL High 200 [facility] Comment on above: Result Comment: <200 mg/dL Desirable 200-240 mg/dL Borderline >240 mg/dL High Risk Performed By: #### L 501.9985, L100.0100, L500.4100, L500.4050 ####[facility] [address] [place], [address] Cholesterol in HDL [Mass/Vol] 41 mg/dL Normal [facility] Comment on above: Result Comment: The drugs N-Acetylcysteine and Metamizole may falsely depress this assay. Reference Range HDL <40 mg/dL Low HDL Cholesterol HDL >or= 60 mg/dL High HDL Cholesterol Performed By: #### L 501.9985, L100.0100, L500.4100, L500.4050 ####[facility] [address] [place], [address] Cholesterol in LDL [Mass/Vol] 124 mg/dL Normal 0-[address] [facility] Comment on above: Performed By: #### L 501.9985, L100.0100, L500.4100, L500.4050 ####[facility] [address] [place], [address] Cholesterol in VLDL [Mass/Vol] 51 mg/dL High 5-[address] [facility] Comment on above: Performed By: #### L 501.9985, L100.0100, L500.4100, L500.4050 ####[facility] [address] [place], [address] Triglyceride [Mass/Vol] 256 mg/dL High [facility] Comment on above: Result Comment: The drugs N-Acetylcysteine and Metamizole may falsely depress this assay. Serum Triglycerides Reference Interval Normal <150 mg/dL Borderline high 150 - 199 mg/dL High 200 - 499 mg/dL Very High > or = 500 mg/dL Performed By: #### L 501.9985, L100.0100, L500.4100, L500.4050 ####[facility] [address] [place], [address] Knee 4 or More Viewson 02-15 Knee 4 or More Views [facility] [place] [facility] [address] [facility] [place] [address] Knee 4 or More Views MR#: [id number] Acct: [id number] Name: CHERYLE VALENTIN Rep #: [id number] : 1965 F 58 From: Vasile Sánchez MD PCP: Dr. Anuja Lorenzana MD Status: DEP AMB Study: Knee 4 or More Views Date of Exam: 02/16/24 Exam# [id number] Ordering Dr: Ike Mo DO [id number] STUDY: X-RAY - LEFT KNEE REASON FOR EXAM: Female, 58 years old. Pain. TECHNIQUE: 4 views of the left knee. COMPARISON: None. FINDINGS: Normal visualized distal femur. Normal visualized proximal tibia and fibula. Normal proximal tibiofibular articulation. There is no demonstrated fracture. There is severe degenerative arthrosis of the medial femorotibial compartment with severe joint space narrowing. There is mild degenerative arthrosis of the lateral femorotibial compartment. There is moderate degenerative arthrosis of the patellofemoral articulation. There is a moderate volume joint effusion. The soft tissue structures are unremarkable. RAD/Knee 4 or More Views IMPRESSION: Tricompartment degenerative arthrosis, most severe in the medial femorotibial compartment. Moderate joint effusion. No demonstrated fracture. Electronically Signed: Vasile Sánchez MD at 8:17 EDT Reading Location ID and State: [facility] [place] / [place] , Service support , CC: Dr. Anuja Lorenzana MD; Dr. Ike Mo DO Architect Intern: Signed Normal [facility] Orthopedic Visit Reporton Orthopedic Visit Report [facility] [address] [place] [address] [address] [place] [address] OFFICE VISIT Date of Service: 02/16/24 MR#: [id number] Acct: [id number] Name: CHERYLE VALENTIN Rep #: [id number] : 1965 Provider: Dr. Ike geller DO Age/Sex: 58/F Location: [facility] [place] Status: Signed Intake Vital Signs 06/15/23 13:39 Height 5 ft 5.5 in Intake Visit Reasons: LEFT KNEE Accompanied by: Self Is patient in pain?: Yes Allergies No Known Allergies Allergy (Verified 02/16/24 10:46) Medications ???Medication ???Instructions ???Recorded ???Confirmed ???Type acetaminophen 500 mg tablet 1,000 mg (2 x 500 mg) PO Q6H PRN 05/04/23 02/16/24 Rx #100 tabs PFSH Medical History Alcohol use Arthritis Colon cancer screening Heartburn History of edema History of pain when walking Leg cramps Non-smoker Post-menopausal Wears glasses Wears partial dentures Surgical History H/O: Hx of total knee arthroplasty Family History Mother Diabetes Brother Diabetes Other Arthritis Social History household members: spouse housing: house number of children: 2 current occupational status: employed Smoking Status: Never smoker alcohol intake: current alcohol intake frequency: holidays/special occasions only Alcohol type: wine substance use type: does not use what type of physical activity do you participate in: none seatbelt use: always do you feel safe at home: Yes additional social history: MAURICE GAMBLE LEFT KNEE Details: This documentation accurately reflects the service provided and the decisions made by me, Dr. Ike Mo, DO 02/16/24 0816. Part of today???s visit was documented by Francheska Berry, acting as scribe. CHERYLE VALENTIN is a 58 year old F here today for left knee. Patient states that she continues to have pain over her lateral knee. She complains fo stiffness. She has difficulty ambulating due to her pain. She notes that her pain travels into her lateral calf and her calf is very hard. She has a knee brace which she wears at all times, except for sleeping. She had a left knee injection on 12/13/23 which was helpful for a few weeks. Patient takes tylenol for pain. Ortho Exam General General: Yes no acute distress Neurologic: Yes alert and Yes oriented x3 Psychologic: Yes reasonable and appropriate Right Knee Patella Translation: 1 Left Knee Skin/Wound: Yes CDI, No ecchymosis, No erythema and Yes swelling 1+: Effusion Knee ROM: Yes ROM-Extension -20 to 0 (-12) and Yes ROM-Flexion 0-140 (105) Examination: Yes med jt line tenderness, Yes Lat jt line tenderness and Yes Crepitus Stability: NML: Anterior Drawer, NML: Valgus 0, NML: Valgus 30, NML: Varus 0 and NML: Varus 30 Patella Translation: 1 KNEE: no calf pain, negative homans, normal sensation to light palpation, good ankle range of motion Supplemental Info 2023 x-ray left knee: Advanced tricompartmental DJD, worse medial compartment 06/15/2023 manipulation under anesthesia right knee 06/14/2023 x-ray right knee: Status post press-fit total knee arthroplasty 05/04/2023 right total knee arthroplasty: Dr. Mo 09/30/2020 x-ray bilateral knees advanced tricompartmental knee arthrosis [id number] medial compartment with varus deformity Coding Level of Care Code Off vis,est,level 4 Diagnoses Primary osteoarthritis of left knee M17.12 Osteoarthritis type: primary Assessment and Plan Assessment and Plan (1) Left knee DJD: Status: Acute Qualifiers: Osteoarthritis type: primary Qualified Code(s): M17.12 - Unilateral primary osteoarthritis, left knee Orders: Orders Knee 4 or More Views Today M17.12 - Unilateral primary osteoarthritis, left knee Plan Cheryle is a pleasant 58-year-old female who we previously performed a right total knee arthroplasty on who did very well with that she is happy she had a performed although she did have some issues with knee stiffness postoperatively. She has advanced left knee arthrosis and does wish to proceed with a left total knee arthroplasty she has failed injection therapy. And bracing and exercises. spoke with the patient about a left total knee arthroplasty. Explained she needs to do formal physical therapy after surgery to prevent a manipulation again this time around. She should work on knee range of motion on her own now as well as she is stiff at this time. Risks, benefits and alternatives of surgery reviewed including but not limited to bleeding, infection, nerve, artery and/or tissue damage, fracture, VTE, mechanical feel of the knee, continued pain, stiffness and expe (more content not included)... Normal [facility] Glucose Glucometer (BldC) [M ass/Vol]Ordered By: Ike Mo on 05-04-2023 Glucose [Mass/Vol] 104 mg/dL 74-106 [facility] Comment on above: MANAGEMENT OF PATIEN T CARE PER NURSING PROTOCOL Absolute lymphocyte countOrd ered By: Ike Mo on 04-27-2023 Lymphocytes Auto (Unsp spec) [#/Vol] 2.48 10*3/uL 0.83-4.[address] [facility] Basophil percentageOrdered B y: Ike Mo on 04-27-2023 Basophils/100 WBC (Bld) 0.5 % 0-[address] [facility] Chloride [Moles/Vol] 106 mmol/L 98-107 [facility] Eosinophils/100 WBC (Bld) 3.8 % 0-[address] [facility] Glucose [Mass/Vol] 109 mg/dL 74-106 [facility] Comment on above: Fasting Glucose resu lt from 100 to 125 mg/dL suggests IMPAIRED HOMEOSTASIS per A.D.A. criteria. Neutrophils (Bld) [#/Vol] 4.1 10*3/uL 2.0-7.[address] [facility] Neutrophils/100 WBC (Bld) 55.6 % 47-[address] [facility] Potassium [Moles/Vol] 3.6 mmol/L 3.5-5.1 [facility] Sodium [Moles/Vol] 140 mmol/L 136-145 [facility] WBC (Bld) [#/Vol] 7.4 10*3/uL 4.4-11.0 [facility] Blood erythrocytes count (nu mber/volume)Ordered By: Ike Mo on 04-27-2023 RBC (Bld) [#/Vol] 5.04 10*6/uL 4.2-5.4 [facility] Blood hemoglobin measurement (mass/volume)Ordered By: Ike Mo on 04-27-2023 Hemoglobin (Bld) [Mass/Vol] 13.7 g/dL 12.0-15.[address] [facility] Blood lymphocytes/100 leukoc ytesOrdered By: Ike Mo on 04-27-2023 Lymphocytes/100 WBC (Bld) 33.6 % 19-[address] [facility] Blood monocytes/100 leukocyt esOrdered By: Ike Mo on 04-27-2023 Monocytes/100 WBC (Bld) 6.1 % 0-[address] [facility] Blood platelet mean volumeOr dered By: Ike Mo on 04-27-2023 Platelet mean volume (Bld) [Entitic vol] 8.7 fL 6.2-12.[address] [facility] Determination of erythrocyte mean corpuscular volume (MCV)Ordered By: Ike Mo on 04-27-2023 MCV (RBC) [Entitic vol] 84.7 fL 81-[address] [facility] Hematocrit Auto (Bld) [Volum e fraction]Ordered By: Ike Mo on 04-27-2023 Hematocrit (Bld) [Volume fraction] 42.7 % 37-[address] [facility] INR in Blood by Coagulation assayOrdered By: Ike oM on 04-27-2023 INR Coag (Bld) [Relative time] 1.0 {INR} [facility] Laboratory - Chemistry and C hemistry - challengeOrdered By: Ike Mo on 04-27-2023 CO2 [Moles/Vol] 30.0 mmol/L 21.0-32.[address] [facility] Urea nitrogen/Creatinine [Mass ratio] 16.4 mg/mg 10-[address] [facility] Laboratory - Chemistry and C hemistry - challengeOrdered By: Jacob Escalante on 04-27-2023 Magnesium [Mass/Vol] 2.1 mg/dL 1.6-2.6 [facility] Laboratory - CoagulationOrde red By: Ike Mo on 04-27-2023 aPTT Coag (Bld) [Time] 27.6 s 24.1-36.2 [facility] PT Coag (PPP) [Time] 12.7 s 11.7-14.9 [facility] Laboratory - Hematology and Cell countsOrdered By: Ike Mo on 04-27-2023 Erythrocyte distribution width (RBC) [Entitic vol] 36.0 fL 35.1-43.[address] [facility] Erythrocyte distribution width (RBC) [Ratio] 11.9 % 11.6-14.[address] [facility] Immature granulocytes/100 WBC (Bld) 0.400 % 0.0-0.[address] [facility] Comment on above: IG% - Immature Granu locytes (promyelocytes, myelocytes and metamyelocytes) > 1% indicates that a LEFT SHIFT is Present. MCH (RBC) [Entitic mass] 27.2 pg 27.0-32.[address] [facility] Nucleated RBC/100 WBC (Bld) [Ratio] 0 % 0-[address] [facility] MCHC Auto (RBC) [Mass/Vol]Or dered By: Ike Mo on 04-27-2023 MCHC (RBC) [Mass/Vol] 32.1 g/dL 32-36 [facility] No Panel InformationOrdered By: Ike Mo on 04-27-2023 Estimated GFR (MDRD) Amer 105 mL/min >[address] [facility] Comment on above: GFR Calc Estimated GFR (MDRD) Non-Af Amer 86 mL/min >[address] [facility] Comment on above: Non- GFR Calc Fructosamine 233 umol/L 0-[address] [facility] Comment on above: Published reference interval for apparently healthysubjects between age 20 and 60 is 205 - 285 umol/L and in apoorly controlled diabetic population is 228 - 563 umol/Lwith a mean of 396 umol/L.Performed at: - [facility] [id number] Director: Markos Douglass PhD, Phone: [phone] Nasal Screen MRSA/MSSA [facility] Platelets bldOrdered By: Jose A Mo on 04-27-2023 Platelets (Bld) [#/Vol] 289 10*3/uL 150-[address] [facility] Serum or plasma calcium katiana urement (mass/volume)Ordered By: Ike Mo on 04-27-2023 Calcium [Mass/Vol] 9.1 mg/dL 8.5-10.1 [facility] Serum or plasma creatinine m easurement (mass/volume)Ordered By: Ike Mo on 04-27-2023 Creatinine [Mass/Vol] 0.73 mg/dL 0.55-1.02 [facility] Comment on above: The validity of the calculated GFR & GFRAA in patients over 70 years has not been determined. Clinical correlation is essential. Serum or plasma urea nitroge n measurement (mass/volume)Ordered By: Ike Mo on 04-27-2023 Urea nitrogen [Mass/Vol] 12 mg/dL 7-[address] [facility] Thin prep Papanicolaou smear with manual screeningOrdered By: Ike Mo on 04-27-2023 Thin prep Papanicolaou smear with manual screening 4 5-[address] [facility] Whole blood hemoglobin A1c/t otal hemoglobin ratio (mass fraction)Ordered By: Ike Mo on 04-27-2023 HbA1c (Bld) [Mass fraction] 5.8 % 3.8-5.[address] [facility] Comment on above: Normal < 5.7 % Predi abetic 5.7 - 6.4 % Diabetic >or= 6.5 % Please note range changes. Cervical or vagninal specime n microscopic examination by cytology stain (reported asOrdered By: Tessa Overton on 10-26-2022 Cytology report Cyto stain Doc (Cvx/Vag) Comment . [facility] Comment on above: The Pap smear is a s creening test designed to aid in thedetection of premalignant and malignant conditions of theuterine cervix. It is not a diagnostic procedure andshould not be used as the sole means of detecting cervicalcancer. Both false-positive and false-negative reports dooccur. Detection in cervical specim en of any of human papilloma virus (HPV) 16, 18, 31, 33,Ordered By: Tessa Overton on 10-26-2022 HPV 16+18+31+33+35+39+45+5 1+52+56+58+59+66+68 DNA Probe+sig amp Ql (Cvx) Negative Negative [facility] Comment on above: This nucleic acid am plification test detects fourteen high- risk HPV types (16,18,31,33,35,39,45,51,52,56,58,59,66,68)without differentiation. Laboratory - CytologyOrdered By: Tessa Overton on 10-26-2022 Territory Sales Consultant Cyto stain Nom (Cvx/Vag) [ID] Comment . [facility] Comment on above: Ted Carlisle totechnologist (ASCP) Pathologist Cyto stain Nom (Cvx/Vag) [ID] Comment . [facility] Comment on above: Kayden Cho MD, Pa thologist Recommended follow-up Cyto stain Nom (Cvx/Vag) Comment . [facility] Comment on above: Suggest follow up as clinically appropriate. Laboratory - Miscellaneous t estsOrdered By: Tessa Overton on 10-26-2022 Service comment (Unsp spec) [Interp] Comment . [facility] Comment on above: This liquid based Th inPrep(R) pap test was screened withthe use of an image guided system. Service comment (Unsp spec) [Interp] . . [facility] Liquid-based cerv Pap + CT/G C by SADE w reflex to high-risk HPV for ASCUSOrdered By: Tessa Overton on 10-26-2022 Cytology report Cyto stain.thin prep Doc (Cvx/Vag) Comment . [facility] Comment on above: Criteria not met, HP V Genotype not performed.Performed at: [address] [id number] Director: Velma Silverio MD, Phone: [phone] at: [facility] Cyto [id number] [place], [place] [id number] Director: Stepan Hernandez MD, Phone: [phone] at: =G - [facility] [address] [id number] Director: Velma Silverio MD, Phone: [phone] No Panel InformationOrdered By: Tessa Overton on 10-26-2022 Pathology report final diagnosis Narrative Comment . [facility] Comment on above: OTHER: NEGATIVE FOR SQUAMOUS INTRAEPITHELIAL LESION (NSI).ENDOMETRIAL CELLS ARE PRESENT IN A WOMAN >= 45 YEARS OF AGE. THE SHEDDINGOF ENDOMETRIAL CELLS IN DAI-POST MENOPAUSAL WOMEN MAY REPRESENT BENIGNENDOMETRIAL LESIONS, HORMONAL ALTERATIONS OR UNCOMMONLY, ENDOMETRIALABNORMALITIES. Absolute lymphocyte counton 05-12-2022 Lymphocytes Auto (Unsp spec) [#/Vol] 2.40 10*3/uL 0.83-4.[address] [facility] Work Phone: Basophil percentageon 2021 Basophils/100 WBC (Bld) 0.6 % 0-[address] [facility] Work Phone: Bilirubin [Mass/Vol] 0.40 mg/dL 0.20-1.00 [facility] Work Phone: Comment on above: For patients on eltr ombopag therapy, use of Dimension Fries TBIL is not recommended. Chloride [Moles/Vol] 106 mmol/L 98-107 [facility] Work Phone: Cholesterol [Mass/Vol] 218 mg/dL <200 [facility] Work Phone: Comment on above: <200 mg/dL Desirable 200-240 mg/dL Borderline >240 mg/dL High Risk Eosinophils/100 WBC (Bld) 4.2 % 0-[address] [facility] Work Phone: Glucose [Mass/Vol] 81 mg/dL 74-106 [facility] Work Phone: Neutrophils (Bld) [#/Vol] 3.0 10*3/uL 2.0-7.[address] [facility] Work Phone: Neutrophils/100 WBC (Bld) 48.8 % 47-[address] [facility] Work Phone: Potassium [Moles/Vol] 3.5 mmol/L 3.5-5.1 [facility] Work Phone: Protein [Mass/Vol] 7.9 g/dL 6.4-8.2 [facility] Work Phone: Sodium [Moles/Vol] 143 mmol/L 136-145 [facility] Work Phone: Triglyceride [Mass/Vol] 225 mg/dL <[address] [facility] Work Phone: Comment on above: The drugs N-Acetylcy steine and Metamizole may falsely depress this assay.Serum Triglycerides Reference Interval Normal <150 mg/dL Borderline high 150 - 199 mg/dL High 200 - 499 mg/dL Very High > or = 500 mg/dL WBC (Bld) [#/Vol] 6.2 10*3/uL 4.4-11.0 [facility] Work Phone: Blood erythrocytes count (nu mber/volume)on 05-12-2022 RBC (Bld) [#/Vol] 5.01 10*6/uL 4.2-5.4 [facility] Work Phone: Blood hemoglobin measurement (mass/volume)on 05-12-2022 Hemoglobin (Bld) [Mass/Vol] 14.0 g/dL 12.0-15.[address] [facility] Work Phone: Blood lymphocytes/100 leukoc yteson 05-12-2022 Lymphocytes/100 WBC (Bld) 38.6 % 19-[address] [facility] Work Phone: Blood monocytes/100 leukocyt eson 05-12-2022 Monocytes/100 WBC (Bld) 7.6 % 0-[address] [facility] Work Phone: Blood platelet mean volumeon 05-12-2022 Platelet mean volume (Bld) [Entitic vol] 9.6 fL 6.2-12.[address] [facility] Work Phone: [phone] Determination of erythrocyte mean corpuscular volume (MCV)on 05-12-2022 MCV (RBC) [Entitic vol] 85.6 fL 81-[address] [facility] Work Phone: [phone] Hematocrit Auto (Bld) [Volum e fraction]on 05-12-2022 Hematocrit (Bld) [Volume fraction] 42.9 % 37-[address] [facility] Work Phone: [phone] Laboratory - Chemistry and C hemistry - challengeon 05-12-2022 ALP [Catalytic activity/Vol] 95 U/L 45-[address] [facility] Work Phone: [phone] ALT [Catalytic activity/Vol] 24 U/L 13-[address] [facility] Work Phone: [phone] CO2 [Moles/Vol] 30.0 mmol/L 21.0-32.[address] [facility] Work Phone: [phone] Globulin (S) [Mass/Vol] 4.0 g/dL 2.2-4.[address] [facility] Work Phone: [phone] Urea nitrogen/Creatinine [Mass ratio] 17.2 mg/mg 10-[address] [facility] Work Phone: [phone] Laboratory - Hematology and Cell countson 05-12-2022 Erythrocyte distribution width (RBC) [Entitic vol] 37.6 fL 35.1-43.[address] [facility] Work Phone: [phone] Erythrocyte distribution width (RBC) [Ratio] 12.0 % 11.6-14.[address] [facility] Work Phone: [phone] Immature granulocytes/100 WBC (Bld) 0.200 % 0.0-0.[address] [facility] Work Phone: [phone] Comment on above: IG% - Immature Granu locytes (promyelocytes, myelocytes and metamyelocytes) > 1% indicates that a LEFT SHIFT is Present. MCH (RBC) [Entitic mass] 27.9 pg 27.0-32.[address] [facility] Work Phone: [phone] Nucleated RBC/100 WBC (Bld) [Ratio] 0 % 0-[address] [facility] Work Phone: MCHC Auto (RBC) [Mass/Vol]on 05-12-2022 MCHC (RBC) [Mass/Vol] 32.6 g/dL 32-36 [facility] Work Phone: No Panel Informationon 05-12 Estimated GFR (MDRD) Amer 101 mL/min >[address] [facility] Work Phone: Comment on above: GFR Calc Estimated GFR (MDRD) Non-Af Amer 83 mL/min >[address] [facility] Work Phone: Comment on above: Non- GFR Calc Platelets bldon 05-12-2022 Platelets (Bld) [#/Vol] 268 10*3/uL 150-[address] [facility] Work Phone: Serum or plasma albumin katiana urement (mass/volume)on 05-12-2022 Albumin [Mass/Vol] 3.9 g/dL 3.2-5.0 [facility] Work Phone: Serum or plasma albumin/glob ulin mass ratioon 05-12-2022 Albumin/Globulin [Mass ratio] 1.0 {ratio} 0.9-2.[address] [facility] Work Phone: Serum or plasma calcium katiana urement (mass/volume)on 05-12-2022 Calcium [Mass/Vol] 9.4 mg/dL 8.5-10.1 [facility] Work Phone: [phone] Serum or plasma cholesterol in HDL measurement (mass/volume)on 05-12-2022 Cholesterol in HDL [Mass/Vol] 42 mg/dL >[address] [facility] Work Phone: Comment on above: The drugs N-Acetylcy steine and Metamizole may falsely depress this assay. Reference Range HDL <40 mg/dL Low HDL Cholesterol HDL >or= 60 mg/dL High HDL Cholesterol Serum or plasma cholesterol in VLDL measurement (mass/volume)on 05-12-2022 Cholesterol in VLDL [Mass/Vol] 45 mg/dL 5-[address] [facility] Work Phone: Serum or plasma creatinine m easurement (mass/volume)on 05-12-2022 Creatinine [Mass/Vol] 0.76 mg/dL 0.55-1.02 [facility] Work Phone: Comment on above: The validity of the calculated GFR & GFRAA in patients over 70 years has not been determined. Clinical correlation is essential. Serum or plasma low density lipoprotein (LDL) cholesterol measurement (mass/volume)on 05-12-2022 Cholesterol in LDL [Mass/Vol] 131 mg/dL 0-[address] [facility] Work Phone: Serum or plasma urea nitroge n measurement (mass/volume)on 05-12-2022 Urea nitrogen [Mass/Vol] 13 mg/dL 7-[address] [facility] Work Phone: Thin prep Papanicolaou smear with manual screeningon 05-12-2022 Thin prep Papanicolaou smear with manual screening 18 U/L 15-[address] [facility] Work Phone: Thin prep Papanicolaou smear with manual screening 7 5-[address] [facility] Work Phone: NICKOVon 08-30-2019 CNOV Office Visit (ALLMED ) -------- CHERYLE VALENTIN ([id number]) 1965 F Date Time Provider Department 08/30/19 2:00 PM ELSIE DE LUNA During your visit today, we recorded the following information about you: Pulse Blood pressure Weight 74/minute 137/67 93 kg Nora Gaona RN 08/30/2019 1:35 PM Signed Patient here for consult regarding new onset of hives. Mostly on arms, legs and chest. Red, raised and itchy. Only resolves with steroids. Happened mostly in fall and winter. Last antihistamine dose was in July. Elsie De Luna MD 08/31/2019 6:38 PM Signed This is a consultation requested by LOLIS Maravilla for an allergy and immunology evaluation. My final recommendations will be communicated back to the requesting healthcare provider(s) by way of shared medical record or via U.[place]. mail. Cheryle Valentin is a 54 year old female who presents for further evaluation of skin rash. 4 episodes of pruritic rash involving neck, shoulders, extremities (dorsal arms and forearms, anterior legs) since 2018. Individual lesions resolve in 5-7 days. 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 Resolved with systemic steroids. She began wearing protective gloves at work but skin rash recurred despite avoid direct contact of the oils with her skin. No other identified triggers of her symptoms. She denies environmental changes changes in soaps, cleansers, detergents etc prior to the onset of symptoms. She denies starting new medications or supplements prior to the onset of symptoms. Denies use of topical antimicrobials. She has taken 2 courses of systemic corticosteroids with improvement and then recurrence of symptoms. C/o insomnia with use of corticosteroids. She has had fair improvement with triamcinoloneointment 0.1% and coconut oil. Last episode occurred in July,. Since then, she has had mild residual hyperpigmentation of her skin. Asthma as a child; asymptomatic as an adult. REVIEW OF SYSTEMS: Denies significant nasal and ocular symtpoms SINUSITIS: The patient does not suffer from frequent sinopulmonary infections. ASTHMA: The patient has no history of asthma. ECZEMA: The patient has no history of eczema. URTICARIA:The patient does not have a history of urticaria and/or angioedema. GERD: The patient does not have a history of GERD. INSECT STING: The patient does not have a history of systemic reaction to insect sting. FOOD ALLERGY:The patient denies history of food allergy. LATEX: The patient does not have a history of adverse reaction to latex. All other review of systems negative except for those listed above. PAST MEDICAL HISTORY Diagnosis Date - Hives There is no problem list on file for this patient. MEDICATIONS: triamcinolone acetonide (KENALOG) 0.1 % ointment Apply 1 application to affected area twice daily. diphenhydrAMINE (BENADRYL) 25 mg capsule Take 25 mg by mouth every 6 hours as needed. acetaminophen (TYLENOL) 325 mg tablet Take 650 mg by mouth every 6 hours as needed. ALLERGIES: Allergies As of Date: 08/30/2019 (No Known Allergies) Fully Assessed 08/30/2019 PAST SURGICAL HISTORY Procedure Laterality Date - DELIVERY ONLY , low transverse FAMILY HISTORY: Allergic rhinitis:no. Asthma: no. Eczema: no. Cystic fibrosis: no. Immunodeficiency: no. SOCIAL HISTORY: Employer And Job Title: None on file Years Of Education Completed: Not specified Marital Status: Social History Tobacco Use Smoking status: Never Smoker Smokeless tobacco: Never Used ENVIRONMENTAL HISTORY: Lives in a house Age of home: 15 years Heating: gas Woodburning fireplace in the home: no Air conditioning: Central air Basement: Dry basement Dennis: [id number] carpeting Dust mite controls: Dust mite controls are already in place. Pets in the home: 1 cats Outdoor animals: There are no outdoor animals Tobacco smoke: Exposure in the home. Physical Exam: GENERAL APPEARANCE:Well appearing, alert, in no acute distress, well-hydrated, well nourished. HEENT: NCAT. EYES: conjunctiva and sclera normal. EARS: External ears normal. Canals clear. TM's normal. NOSE/SINUS: Nares normal. Septum midline. Mucosa normal. No drainage or sinus tenderness. THROAT: no erythema NECK:neck supple, no adenopathy HEART:RRR with normal S1 and S2 ,no murmurs, no gallops, no rubs LUNGS: clear to auscultation bilaterally, no wheezes, rales or rhonchi ABDOMEN:soft, nontender, nondistended, without organomegaly or palpable masses EXTREMITIES:Extremities normal, No deformities, No skin discoloration and No edema SKIN: Mild hyperpigmentation of the dorsal arms, and forearms bilaterally ASSESSMENT/PLAN: 1.) Pruritic dermatitis of unclear etiology, possible irritant or allergic contact dermatitis: Reassured patient that her symptoms are not consistent with IgE?mediated to foods or inhalant allergens. Continue triamcinolone ointment 0.1% apply twice daily as needed to affected areas. Start bnpj-lwg-dtijoae Alexandra 180 mg or Zyrtec 10 mg once daily as needed for itching. She may also take Benadryl 25-50 mg every 6 hours as needed. She is aware that this medication is sedating. Recommend dermatology evaluation if her symptoms recur. 9 If allergic contact dermatitis is suspected, dermatology may elect to complete patch tests. (Within the [facility], patch testing is completed in the department of dermatology, rather than in allergy/immunology) 2.) Discussed medication dosage, usage, side effects, and goals of treatment in detail. 3.) Follow-up in PRN - patient will return sooner should new symptoms or problems arise. MD Elsie Glez MD 08/30/2019 2:22 PM Signed Use gentle cleansers such as Cetaphil, CeraVe or unscented Dove Use bland moisturizers such as Cetaphil, CeraVe cream or Aveeno as needed for dry skin. Apply triamcinolone ointment twice a day as needed to skin rash. Avoid use on the face and eyelids. Take lnkv-nnx-gwthxts fexofenadine (alexandra) 180 mg or cetirizine (zyrtec) 10 mg once a day as needed for itching. You may also take benadryl 25 mg one to two tablets every 6 hours as needed. Benadryl is sedating. See a compounder sterile products if the rash recurs. Referring Provider: Pal HAMM (LENA) [[id number]] Allergies As of Date: 08/30/2019 (No Known Allergies) Date Reviewed: 08/30/2019 Reviewed by: Nora Gaona RN - Fully Assessed Reason for Visit: New Patient [172] Cmt: hives Primary Visit Diagnosis:Pruritic dermatitis [L29.9] Prescriptions as of 08/30/2019 Sig: TRIAMCINOLONE ACETONIDE 0.1 %* Apply 1 application to affect* DIPHENHYDRAMINE 25 MG CAPSULE Take 25 mg by mouth every 6 h* ACETAMINOPHEN 325 MG TABLET Take 650 mg by mouth every 6 * Problem List As Of Date: 08/30/2019 (None) Other instructions from your clinician: Use gentle cleansers such as Cetaphil, CeraVe or unscented Dove Use bland moisturizers such as Cetaphil, CeraVe cream or Aveeno as needed for dry skin. Apply triamcinolone ointment twice a day as needed to skin rash. Avoid use on the face and eyelids. Take moeh-woa-zrwlnpz fexofenadine (alexandra) 180 mg or cetirizine (zyrtec) 10 mg once a day as needed for itching. You may also take benadryl 25 mg one to two tablets every 6 hours as needed. Benadryl is sedating. See a compounder sterile products if the rash recurs. Visit Notes: >> Nora Jimenez CARRERO WedAug 30, 2019 1:30 PM Status: Signed Patient here for consult regarding new onset of hives. Mostly on arms, legs and chest. Red, raised and itchy. Only resolves with steroids. Happened mostly in fall and winter. Last antihistamine dose was in July. Encounter Status:Closed by ELSIE DE LUNA MD on 08/31/19 [facility] PROGRESSon 08-30-2019 PROGRESS HNO ID: [id number] Author: Elsie De Luna Service: ? Author Type: Physician Type: Progress Notes Filed: 08/31/2019 6:38 PM Note Text: This is a consultation requested by LOLIS Maravilla for an allergy and immunology evaluation. My final recommendations will be communicated back to the requesting healthcare provider(s) by way of shared medical record or via [place] mail. Cheryle Valentin is a 54 year old female who presents for further evaluation of skin rash. 4 episodes of pruritic rash involving neck, shoulders, extremities (dorsal arms and forearms, anterior legs) since 2018. Individual lesions resolve in 5-7 days. 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 Resolved with systemic steroids. She began wearing protective gloves at work but skin rash recurred despite avoid direct contact of the oils with her skin. No other identified triggers of her symptoms. She denies environmental changes changes in soaps, cleansers, detergents etc prior to the onset of symptoms. She denies starting new medications or supplements prior to the onset of symptoms. Denies use of topical antimicrobials. She has taken 2 courses of systemic corticosteroids with improvement and then recurrence of symptoms. C/o insomnia with use of corticosteroids. She has had fair improvement with triamcinoloneointment 0.1% and coconut oil. Last episode occurred in [place], 2019. Since then, she has had mild residual hyperpigmentation of her skin. Asthma as a child; asymptomatic as an adult. REVIEW OF SYSTEMS: Denies significant nasal and ocular symtpoms SINUSITIS: The patient does not suffer from frequent sinopulmonary infections. ASTHMA: The patient has no history of asthma. ECZEMA: The patient has no history of eczema. URTICARIA:The patient does not have a history of urticaria and/or angioedema. GERD: The patient does not have a history of GERD. INSECT STING: The patient does not have a history of systemic reaction to insect sting. FOOD ALLERGY:The patient denies history of food allergy. LATEX: The patient does not have a history of adverse reaction to latex. All other review of systems negative except for those listed above. PAST MEDICAL HISTORY Diagnosis Date - Hives There is no problem list on file for this patient. MEDICATIONS: triamcinolone acetonide (KENALOG) 0.1 % ointment Apply 1 application to affected area twice daily. diphenhydrAMINE (BENADRYL) 25 mg capsule Take 25 mg by mouth every 6 hours as needed. acetaminophen (TYLENOL) 325 mg tablet Take 650 mg by mouth every 6 hours as needed. ALLERGIES: Allergies As of Date: 08/30/2019 (No Known Allergies) Fully Assessed 08/30/2019 PAST SURGICAL HISTORY Procedure Laterality Date - DELIVERY ONLY , low transverse FAMILY HISTORY: Allergic rhinitis:no. Asthma: no. Eczema: no. Cystic fibrosis: no. Immunodeficiency: no. SOCIAL HISTORY: Employer And Job Title: None on file Years Of Education Completed: Not specified Marital Status: Social History Tobacco Use Smoking status: Never Smoker Smokeless tobacco: Never Used ENVIRONMENTAL HISTORY: Lives in a house Age of home: 15 years Heating: gas Woodburning fireplace in the home: no Air conditioning: Central air Basement: Dry basement Dennis: Pvuj-rf-gxuq carpeting Dust mite controls: Dust mite controls are already in place. Pets in the home: 1 cats Outdoor animals: There are no outdoor animals Tobacco smoke: Exposure in the home. Physical Exam: GENERAL APPEARANCE:Well appearing, alert, in no acute distress, well-hydrated, well nourished. HEENT: NCAT. EYES: conjunctiva and sclera normal. EARS: External ears normal. Canals clear. TM's normal. NOSE/SINUS: Nares normal. Septum midline. Mucosa normal. No drainage or sinus tenderness. THROAT: no erythema NECK:neck supple, no adenopathy HEART:RRR with normal S1 and S2 ,no murmurs, no gallops, no rubs LUNGS: clear to auscultation bilaterally, no wheezes, rales or rhonchi ABDOMEN:soft, nontender, nondistended, without organomegaly or palpable masses EXTREMITIES:Extremities normal, No deformities, No skin discoloration and No edema SKIN: Mild hyperpigmentation of the dorsal arms, and forearms bilaterally ASSESSMENT/PLAN: 1.) Pruritic dermatitis of unclear etiology, possible irritant or allergic contact dermatitis: Reassured patient that her symptoms are not consistent with IgE?mediated to foods or inhalant allergens. Continue triamcinolone ointment 0.1% apply twice daily as needed to affected areas. Start nxpl-tgu-ojfcvua Alexandra 180 mg or Zyrtec 10 mg once daily as needed for itching. She may also take Benadryl 25-50 mg every 6 hours as needed. She is aware that this medication is sedating. Recommend dermatology evaluation if her symptoms recur. 9 If allergic contact dermatitis is suspected, dermatology may elect to complete patch tests. (Within the [facility], patch testing is completed in the department of dermatology, rather than in allergy/immunology) 2.) Discussed medication dosage, usage, side effects, and goals of treatment in detail. 3.) Follow-up in PRN - patient will return sooner should new symptoms or problems arise. Elsie De Luna MD [facility] CNOVon 07-14-2019 CNOV Office Visit (FAMPWS ) -------- CHERYLE VALENTIN ([id number]) 1965 F Date Time Provider Department 07/14/19 9:40 AM Pal HAMM) FAMPWS During your visit today, we recorded the following information about you: Temperature Pulse Respiration Blood pressure 98.2 degrees 72/minute 16/minute 126/86 Weight 91.6 kg M Henok Hamm PA-C 07/14/2019 1:33 PM Signed 53 year old female new to practice with c/o rash over last 7 days. Got better and the recurred. Third time this year: March , April, June. Works at [employer]. 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 Rash first occurred in mar of last year after starting position. Skin SoSoft body wash. Laundry soap sensitive Joints hurt all over. Knee pain Dr. Deirdre fink. No current medications. Occasionally uses Tylenol for arthritis. c-sect x 2, no other surgeries. Non-smoker. ETOH: red wine once a month. HISTORIES No family history on file. No past medical history on file. No past surgical history on file. Social History Tobacco Use - Smoking status: Not on file Substance Use Topics - Alcohol use: Not on file - Drug use: Not on file There is no problem list on file for this patient. No current outpatient medications on file. No current facility-administered medications for this visit. DTAP,TDAP,TD(1 - Tdap) due on 1974 PAP TESTING due on 1984 HPV TESTING due on 1993 MAMMOGRAM due on 2003 HEPATITIS C SCREENING due on 2007 LIPID SCREEN due on 2008 DIABETES SCREEN due on 2008 COLORECTAL CANCER SCREENING,SEE MODIFIER due on 2013 INFLUENZA(1) due on 04/23/2019 EXAM: BP 126/86 Pulse 72 Temp 36.8 ?C (98.2 ?F) (Tympanic) Resp 16 Wt 91.6 kg (202 lb) Pleasant overweight adult woman in no acute distress. Alert and oriented all spheres. Normal affect and cognition. Speech normal. No deficits to learning or comprehension. Skin warm, dry, pink to lips and nailbeds. Normal turgor. Has pink raised plaques with wheal covering most of dorsal forearm and upper arm Respirations regular and unlabored. HEENT WNL. TM's clear. Nose and oropharynx free from injection or lesion. No cervical lymph nodes. Thyroid non-tender, no masses Chest CTA. HRRR without murmur or gallop. Extrem: no clubbing or cyanosis. Edema: none. Extremities are warm and pink with prompt capillary refill. ASSESSMENT/PLAN: 1. Irritant contact dermatitis due to oils - ICD9: 692.1, ICD10: L24.1 (primary diagnosis) Discussed skin care: see d/c instructions reviewed - TRIAMCINOLONE ACETONIDE 0.1 % TOPICAL CREAM - PREDNISONE 20 MG TABLET 2. Hives - ICD9: 708.9, ICD10: L50.9 Recurrent: suspect work r/t material reaction. Needs patch testing. Refer. - CONSULT TO ALLERGY/IMMUNOLOGY F/u to establish in next 4 weeks LENA Riojas PA-C 07/14/2019 10:11 AM Addendum Try not to scratch the rash as it may introduce infection. Scratching also releases histamine in the tissue which will make it itch more. Try to keep cool. Be over heated or sweaty may aggravate rash. Wear white cotton underclothing to allow air and avoid possible effects of fabric dyes. Avoid prolonged hot baths or showers: use tepid water if possible. Use a mild, unscented soap if any is needed. Stop all prior lotions, creams, or any other topical skin care products until the rash clears. prednisone as directed by prescription. Triamcinolone cream (cortisone) as directed for rash. OTC antihistamines such Benadryl (make cause drowsiness) or Zyrtec/ Clariten/ Alexandra (non-drowsy) may help itching and may help rash fade. If you are prescribed an antihistamine, these agents may cause mild side effects with dry mouth and occasionally difficulty with constipation, urination, or lightheadedness. They are generally safe in . If you are prescribed a cortisone cream, use only the smallest amount necessary to provide a thin layer over the affected skin. while topical cortisone is generally very safe, prolonged or repetitive use may cause permanent changes in skin and osteoporosis in underlying bones. They should be used for short periods of no more than 2-3 weeks, and then at least a week break. Prolonged use in infants or small children may actually affect adrenal dysfunction and cause growth problems. Safety in depends on the strength and duration of treatment. If the rash is not improving in 5 days, worsening, fever or other concerning symptoms arise, call back. Call sooner if it is getting worse. Please return to the office on approximately 3 months. Open access hours are: Wednesday 8 am-6 pm Wednesday 8 am-4 pm Wednesday 8 am-4 pm 8 am-6 pm Wednesday 8 am-4 pm, 12-4p Referring Provider: SELF [[id number]] Allergies As of Date: 07/14/2019 (No Known Allergies) Date Reviewed: Never Reviewed Reason for Visit: Rash [1087] Cmt: bilateral arms, chest, sides of trunk and back very itchy. 3rd episode of same rash in the last year Primary Visit Diagnosis:Irritant contact dermatitis due to oils [L24.1] Other Visit Diagnosis:Hives [L50.9] Order(s):triamcinolone acetonide (KENALOG) 0.1 % creamApply 1 application to affected area twice daily for 14 days.Disp: 60 gRfl: 1 CONSULT TO ALLERGY/IMMUNOLOGY [[id number]] Order #: [id number]: 1 predniSONE (DELTASONE) 20 mg tabletTake 2 tablets by mouth once daily for 5 days.Disp: 10 tabletRfl: 1 Prescriptions as of 07/14/2019 Sig: ACETAMINOPHEN 325 MG TABLET Take 650 mg by mouth every 6 * TRIAMCINOLONE ACETONIDE 0.1 %* Apply 1 application to affect* PREDNISONE 20 MG TABLET Take 2 tablets by mouth once * Problem List As Of Date: 07/14/2019 (None) Other instructions from your clinician: Try not to scratch the rash as it may introduce infection. Scratching also releases histamine in the tissue which will make it itch more. Try to keep cool. Be over heated or sweaty may aggravate rash. Wear white cotton underclothing to allow air and avoid possible effects of fabric dyes. Avoid prolonged hot baths or showers: use tepid water if possible. Use a mild, unscented soap if any is needed. Stop all prior lotions, creams, or any other topical skin care products until the rash clears. prednisone as directed by prescription. Triamcinolone cream (cortisone) as directed for rash. OTC antihistamines such Benadryl (make cause drowsiness) or Zyrtec/ Clariten/ Alexandra (non-drowsy) may help itching and may help rash fade. If you are prescribed an antihistamine, these agents may cause mild side effects with dry mouth and occasionally difficulty with constipation, urination, or lightheadedness. They are generally safe in . If you are prescribed a cortisone cream, use only the smallest amount necessary to provide a thin layer over the affected skin. while topical cortisone is generally very safe, prolonged or repetitive use may cause permanent changes in skin and osteoporosis in underlying bones. They should be used for short periods of no more than 2-3 weeks, and then at least a week break. Prolonged use in infants or small children may actually affect adrenal dysfunction and cause growth problems. Safety in depends on the strength and duration of treatment. If the rash is not improving in 5 days, worsening, fever or other concerning symptoms arise, call back. Call sooner if it is getting worse. Please return to the office on approximately 3 months. Open access hours are: Wednesday 8 am-6 pm Wednesday 8 am-4 pm Wednesday 8 am-4 pm 8 am-6 pm Wednesday 8 am-4 pm, 12-4p Prescriptions ordered this encounter Disp Refills Start End TRIAMCINOLONE ACETONIDE 0.1 % TOPICA* 60 g 1 07/14/2019 07/28/2019 Route: TOPICAL Sig: Apply 1 application to affected area twice daily for 14 days. PREDNISONE 20 MG TABLET 10 t* 1 07/14/2019 07/19/2019 Route: ORAL Sig: Take 2 tablets by mouth once daily for 5 days. Disposition: Return in about 3 months (around 10/14/2019). Follow-up and Disposition History Recorded Encounter Status:Closed by Pal HAMM PA-C on 07/14/19 [facility] PROGRESSon 07-14-2019 PROGRESS HNO ID: [id number] Author: Pal Ramirez) Hansel Service: ? Author Type: Physician Finance Clerk Type: Progress Notes Filed: 07/14/2019 1:33 PM Note Text: 53 year old female new to practice with c/o rash over last 7 days. Got better and the recurred. Third time this year: March , April, June. Works at [employer]. 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 Rash first occurred in mar of last year after starting position. Skin SoSoft body wash. Laundry soap sensitive Joints hurt all over. Knee pain Dr. Deirdre fink. No current medications. Occasionally uses Tylenol for arthritis. c-sect x 2, no other surgeries. Non-smoker. ETOH: red wine once a month. HISTORIES No family history on file. No past medical history on file. No past surgical history on file. Social History Tobacco Use - Smoking status: Not on file Substance Use Topics - Alcohol use: Not on file - Drug use: Not on file There is no problem list on file for this patient. No current outpatient medications on file. No current facility-administered medications for this visit. DTAP,TDAP,TD(1 - Tdap) due on 1974 PAP TESTING due on 1984 HPV TESTING due on 1993 MAMMOGRAM due on 2003 HEPATITIS C SCREENING due on 2007 LIPID SCREEN due on 2008 DIABETES SCREEN due on 2008 COLORECTAL CANCER SCREENING,SEE MODIFIER due on 2013 INFLUENZA(1) due on 04/23/2019 EXAM: BP 126/86 Pulse 72 Temp 36.8 ?C (98.2 ?F) (Tympanic) Resp 16 Wt 91.6 kg (202 lb) Pleasant overweight adult woman in no acute distress. Alert and oriented all spheres. Normal affect and cognition. Speech normal. No deficits to learning or comprehension. Skin warm, dry, pink to lips and nailbeds. Normal turgor. Has pink raised plaques with wheal covering most of dorsal forearm and upper arm Respirations regular and unlabored. HEENT WNL. TM's clear. Nose and oropharynx free from injection or lesion. No cervical lymph nodes. Thyroid non-tender, no masses Chest CTA. HRRR without murmur or gallop. Extrem: no clubbing or cyanosis. Edema: none. Extremities are warm and pink with prompt capillary refill. ASSESSMENT/PLAN: 1. Irritant contact dermatitis due to oils - ICD9: 692.1, ICD10: L24.1 (primary diagnosis) Discussed skin care: see d/c instructions reviewed - TRIAMCINOLONE ACETONIDE 0.1 % TOPICAL CREAM - PREDNISONE 20 MG TABLET 2. Hives - ICD9: 708.9, ICD10: L50.9 Recurrent: suspect work r/t material reaction. Needs patch testing. Refer. - CONSULT TO ALLERGY/IMMUNOLOGY F/u to establish in next 4 weeks Pal Hamm PA-C Normal [facility] Vital Signs Date Time Vital Sign Value Performing Clinician Danial alonso 01-19-2025 11:09-0400 Body height 165.[address] Anuja Lorenzana MD Work Phone: [facility] 01-19-2025 11:09-0400 Body mass index (BMI) [Ratio] 34.9 kg/m2 Dr. Anuja Lorenzana MD Work Phone: [facility] 01-19-2025 11:09-0400 Body temperature 97.3 [degF] Dr. Anuja Lorenzana MD Work Phone: [facility] 01-19-2025 11:09-0400 Body weight 95.[address] Anuja Lorenzana MD Work Phone: [facility] 01-19-2025 11:09-0400 Diastolic blood pressure 78 mm[Hg] Dr. Anuja Lorenzana MD Work Phone: [facility] 01-19-2025 11:09-0400 Heart rate 77 /min Dr. Anuja Lorenzana MD Work Phone: [facility] 01-19-2025 11:09-0400 Respiratory rate 16 /min Dr. Anuja Lorenzana MD Work Phone: [facility] 01-19-2025 11:09-0400 SaO2% (BldA) [Mass fraction] 98 % Dr. Anuja Lorenzana MD Work Phone: [facility] 01-19-2025 11:09-0400 Systolic blood pressure 136 mm[Hg] Dr. Anuja Lorenzana MD Work Phone: [facility] 06-15-2023 15:30-0400 Body temperature 98 [degF] Dr. Anuja Lorenzana Work Phone: [facility] 06-15-2023 15:30-0400 Diastolic blood pressure 72 mm[Hg] Dr. Anuja Lorenzana Work Phone: [facility] 06-15-2023 15:30-0400 Heart rate 70 /min Dr. Anuja Lorenzana Work Phone: [facility] 06-15-2023 15:30-0400 Respiratory rate 16 /min Dr. Anuja Lorenzana Work Phone: [facility] 06-15-2023 15:30-0400 SaO2% (BldA) [Mass fraction] 100 % Dr. Anuja Lorenzana Work Phone: [facility] 06-15-2023 15:30-0400 Systolic blood pressure 135 mm[Hg] Dr. nAuja Lorenzana Work Phone: [facility] 06-15-2023 13:39-0400 Body height 166.[address] Anuja Lorenzana Work Phone: [facility] 06-15-2023 13:39-0400 Body mass index (BMI) [Ratio] 34.2 kg/m2 Dr. Anuja Lorenzana Work Phone: [facility] 06-15-2023 13:39-0400 Body weight 94.[address] Anuja Lorenzana Work Phone: [facility] 05-04-2023 13:45-0400 Diastolic blood pressure 76 mm[Hg] Dr. Anuja Lorenzana Work Phone: [facility] 05-04-2023 13:45-0400 Heart rate 65 /min Dr. Anuja Lorenzana Work Phone: [facility] 05-04-2023 13:45-0400 Respiratory rate 16 /min Dr. Anuja Lorenzana Work Phone: [facility] 05-04-2023 13:45-0400 SaO2% (BldA) [Mass fraction] 100 % Dr. Anuja Lorenzana Work Phone: [facility] 05-04-2023 13:45-0400 Systolic blood pressure 124 mm[Hg] Dr. Anuja Lorenzana Work Phone: [facility] 05-04-2023 11:55-0400 Body temperature 97.5 [degF] Dr. Anuja Lorenzana Work Phone: [facility] 05-04-2023 11:55-0400 Inhaled oxygen flow rate 4 L/min Dr. Anuja Lorenzana Work Phone: [facility] 05-04-2023 06:48-0400 Body height 165.[address] Anuja Lorenzana Work Phone: [facility] 05-04-2023 06:48-0400 Body mass index (BMI) [Ratio] 34.6 kg/m2 Dr. Anuja Lorenzana Work Phone: [facility] 05-04-2023 06:48-0400 Body weight 94.[address] Anuja Lorenzana Work Phone: [facility] 04-28-2023 09:44-0400 Body mass index (BMI) [Ratio] 36.1 kg/m2 Dr. Anuja Lorenzana Work Phone: [facility] 04-28-2023 09:44-0400 Body temperature 98.2 [degF] Dr. Anuja Lorenzana Work Phone: [facility] 04-28-2023 09:44-0400 Body weight 92.[address] Anuja Lorenzana Work Phone: [facility] 04-28-2023 09:44-0400 Diastolic blood pressure 84 mm[Hg] Dr. Anuja Lorenzana Work Phone: [facility] 04-28-2023 09:44-0400 Heart rate 78 /min Dr. Anuja Lorenznaa Work Phone: [facility] 04-28-2023 09:44-0400 Respiratory rate 18 /min Dr. Anuja Lorenzana Work Phone: [facility] 04-28-2023 09:44-0400 SaO2% (BldA) [Mass fraction] 98 % Dr. Anuja Lorenzana Work Phone: [facility] 04-28-2023 09:44-0400 Systolic blood pressure 124 mm[Hg] Dr. Anuja Lorenzana Work Phone: [facility] 04-02-2023 10:58-0400 Body height 161.[address] Anuja Lorenzana Work Phone: [facility] 04-02-2023 10:58-0400 Body mass index (BMI) [Ratio] 36.2 kg/m2 Dr. Anuja Lorenzana Work Phone: [facility] 04-02-2023 10:58-0400 Body weight 94.[address] Anuja Lorenzana Work Phone: [facility] 11-09-2022 09:08-0400 Body height 161.[address] Anuja Lorenzana Work Phone: [facility] 11-09-2022 09:08-0400 Body mass index (BMI) [Ratio] 35.7 kg/m2 Dr. Anuja Lorenzana Work Phone: [facility] 11-09-2022 09:08-0400 Body weight 92.[address] Anuja Lorenzana Work Phone: [facility] 11-09-2022 09:08-0400 Diastolic blood pressure 80 mm[Hg] Dr. Anuja Lorenzana Work Phone: [facility] 03-20-2023 09:08-0400 Systolic blood pressure 142 mm[Hg] Dr. Anuja Lorenzana Work Phone: [facility] 10-26-2022 10:28-0500 Body height 161.[address] Anuja Lorenzana Work Phone: [facility] 10-26-2022 10:21-0500 Body mass index (BMI) [Ratio] 35.4 kg/m2 Dr. Anuja Lorenzana Work Phone: [facility] 10-26-2022 10:21-0500 Body weight 92.[address] Anuja Lorenzana Work Phone: [facility] 10-26-2022 10:21-0500 Diastolic blood pressure 84 mm[Hg] Dr. Anuja Lorenzana Work Phone: [facility] 10-26-2022 10:21-0500 Systolic blood pressure 140 mm[Hg] Dr. Anuja Lorenzana Work Phone: [facility] 05-12-2022 08:54-0400 Body height 161.[address] Gary Sahu Work Phone: [facility] Work Phone: 05-12-2022 08:54-0400 Body mass index (BMI) [Ratio] 34.9 kg/m2 Dr. Gary Sahu Work Phone: [facility] Work Phone: 05-12-2022 08:54-0400 Body temperature 97.6 [degF] Dr. Gary Sahu Work Phone: [facility] Work Phone: 05-12-2022 08:54-0400 Body weight 90.[address] Gary Sahu Work Phone: [facility] Work Phone: 05-12-2022 08:54-0400 Diastolic blood pressure 70 mm[Hg] Dr. Gary Sahu Work Phone: [facility] Work Phone: 05-12-2022 08:54-0400 Heart rate 68 /min Dr. Gary Sahu Work Phone: [facility] Work Phone: 05-12-2022 08:54-0400 Respiratory rate 14 /min Dr. Gary Sahu Work Phone: [facility] Work Phone: 05-12-2022 08:54-0400 SaO2% (BldA) [Mass fraction] 98 % Dr. Gary Sahu Work Phone: [facility] Work Phone: 05-12-2022 08:54-0400 Systolic blood pressure 128 mm[Hg] Dr. Gary Sahu Work Phone: [facility] Work Phone: Encounters Encounter Date Encounter Type Care Provider Facility Start: 03-30-2025 ambulatory Efewabingdonbe Oleghe Facili ty:[facility] Start: 01-29-2025 [facility] Start: 01-19-2025 End: 01-19-[address] Anuja Lorenzana MD -[facility] Work Phone: Start: 01-19-2025 End: 01-19-[address] Anuja Lorenzana MD Work Phone: [facility] Work Phone: Start: 09-01-2024 End: 09-01-2024 [facility] Start: 07-28-2024 End: 07-28-2024 ambulatory Efewongbe Oleghe Facility:[facility] Start: 06-12-2024 End: 06-12-2024 [facility] Start: 06-08-2024 End: 06-08-2024 [facility] Start: 05-31-2024 End: 05-31-2024 ambulatory Efewongbe Oleghe Facility:[facility] Start: 05-01-2024 End: 05-01-2024 ambulatory Efewongbe Olekathiee Facility:[facility] Start: 04-06-2024 Encounter for other preprocedural examination [facility] Start: 04-03-2024 ambulatory Jacob Nicholson Facility:[facility] Start: 04-03-2024 End: 04-03-2024 ambulatory Rebeccaongtai Dietriche Facility:[facility] Start: 04-03-2024 End: 04-03-2024 ambulatory [facility] Facility:[facility] Start: 03-28-2024 Encounter for other preprocedural examination [facility] Start: 03-21-2024 ambulatory Efewongbe Karloe Facili ty:[facility] Start: 03-21-2024 End: 03-21-2024 ambulatory [facility] Facility:[facility] Start: 03-10-2024 End: 03-10-2024 ambulatory travisabingdontai Dietriche Facility:[facility] Start: 03-10-2024 End: 03-10-2024 ambulatory ewabingdonbe Karloe Facility:[facility] Start: 03-08-2024 End: 03-08-2024 [facility] Start: 02-28-[address] Andrea Lorenzana MD Work Phone: [facility] Start: 02-28-2024 End: 02-28-2024 ambulatory Eftravisongbe Karloe Facility:[facility] Start: 02-28-2024 End: 02-28-2024 ambulatory Efewongbe Karloe Facility:[facility] Start: 02-16-2024 End: 02-16-2024 ambulatory Efewongbe Oleghe Facility:[facility] Start: 08-13-2023 End: 08-13-[address] Anuja Lorenzana Work Phone: [facility] Work Phone: Start: 07-09-2023 End: 07-09-[address] Anuja Lorenzana Work Phone: [facility] Work Phone: Start: 07-07-2023 End: 07-07-[address] Anuja Lorenzana Work Phone: [facility] Work Phone: Start: 07-07-2023 End: 07-07-[address] Anuja Lorenzana Work Phone: [facility]-Physical Therapy Work Phone: Start: 06-15-2023 Non-patient / Non-visit Dr. Robinson Lorenzana Work Phone: [facility] Start: 06-15-2023 End: 06-15-2023 Admission to same day surgery center Dr. Anuja Lorenzana Work Phone: [facility] Start: 06-15-2023 End: 06-15-[address] Anuja Lorenzana Work Phone: [facility] Work Phone: Start: 06-14-[address] Devendra Lorenzana Work Phone: [facility]Physical Therapy Work Phone: Start: 06-14-2023 End: 06-14-[address] Anuja Lorenzana Work Phone: [facility] Work Phone: Start: 05-17-2023 End: 05-17-[address] Anuja Lorenzana Work Phone: [facility] Work Phone: Start: 05-04-2023 Non-patient / Non-visit Dr. Robinson Lorenzana Work Phone: [facility] Start: 05-04-2023 End: 05-04-2023 Admission to same day surgery center Dr. Anuja Lorenzana Work Phone: [facility] Start: 05-04-2023 End: 05-04-[address] Anuja Lorenzana Work Phone: [facility] Work Phone: Start: 04-30-2023 End: 04-30-[address] Anuja Lorenzana Work Phone: [facility] Work Phone: Start: 04-28-2023 End: 04-28-2023 Encounter for other preprocedural examination Dr. Anuja Lorenzana Work Phone: [facility] Start: 04-28-2023 End: 04-28-[address] Anuja Lorenzana Work Phone: [facility] Work Phone: Start: 04-23-2023 End: 04-23-[address] Anuja Lorenzana Work Phone: [facility] Work Phone: Start: 04-20-2023 End: 04-20-[address] Anuja Lorenzana Work Phone: [facility] Work Phone: Start: 04-20-2023 End: 04-20-[address] Anuja Lorenzana Work Phone: [facility] Work Phone: Start: 04-16-2023 End: 04-16-[address] Anuja Lorenzana Work Phone: [facility] Work Phone: Start: 04-02-2023 End: 04-02-[address] Anuja Lorenzana Work Phone: [facility] Work Phone: Start: 01-01-2023 End: 01-01-[address] Anuja Lorenzana Work Phone: [facility] Work Phone: Start: 11-21-2022 End: 11-21-[address] Anuja Lorenzana Work Phone: [facility] Work Phone: Start: 11-21-2022 End: 11-21-[address] Anuja Lorenzana Work Phone: [facility] Start: 11-09-2022 End: 11-09-[address] Anuja Lorenzana Work Phone: [facility] Work Phone: Start: 11-09-2022 End: 11-09-[address] Anuja Lorenzana Work Phone: [facility]-Laboratory, Specimen Start: 11-09-2022 End: 11-09-[address] Anuja Lorenzana Work Phone: [facility] Start: 11-03-2022 End: 11-03-[address] Anuja Lorenzana Work Phone: [facility] Work Phone: Start: 11-03-2022 End: 11-03-[address] Anuja Lorenzana Work Phone: [facility]-Outpatient Breast Imaging Start: 10-26-2022 End: 10-26-[address] Anuja Lorenzana Work Phone: [facility]Laboratory[facility] Specimen Start: 10-26-2022 End: 10-26-[address] Anuja Lorenzana Work Phone: [facility] Start: 05-12-2022 End: 05-12-[address] Gary Sahu Work Phone: [facility] Work Phone: Start: 05-12-2022 End: 05-12-[address] [facility] Start: 05-12-[address] Sugey Sahu Work Phone: [facility] Work Phone: Start: 05-12-2022 End: 05-12-2022 Encounter for general adult medical examination without abnormal findings Dr. Gary Sahu Work Phone: [facility] Start: 05-12-2022 End: 05-12-[address] Gary Sahu Work Phone: [facility] Start: 04-30-2022 Non-patient / Non-visit Dr. Acuna Work Phone: [facility] Procedures Date Procedure Procedure Detail Performing Clinician Start: 06-15-2023 Manipulation of lower limb Dr. Anuja Lorenzana Work Phone: Start: 06-14-2023 Radiologic examinati on of knee Dr. Anuja Lorenzana Work Phone: Start: 05-04-2023 Radiologic examinati on of knee Dr. Anuja Lorenzana Work Phone: Start: 05-04-2023 Total Knee Replaceme nt Robotic Arm Vinod (Right) Dr. Anuja Lorenzana Work Phone: Start: 04-27-2023 Nasal Screen MRSA/MSSA Dr. Anjua Lorenzana Work Phone: Start: 04-20-2023 MRI of lower extremity Dr. Anuja Lorenzana Work Phone: Start: 11-21-[address] Andrea Lorenzana Work Phone: Start: 11-21-[address] Anuja Lorenzana Work Phone: Start: 11-03-2022 Screening mammography Sugey Lorenzana Work Phone: Plan of Treatment Date Care Activity Detail Author Start: 01-19-2025 Patient referral [facility] Work Phone: Start: 08-13-2023 Patient referral [facility] Work Phone: Start: 06-15-2023 Patient discharge [facility] Start: 06-15-2023 Application of ice collar, cap or bag [facility] Start: 06-15-2023 Catheterization of vein [facility] Start: 06-15-2023 Elevation of affected extremity [facility] Start: 06-15-2023 Following clinical pathway protocol [facility] Start: 06-15-2023 Procedure discontinued [facility] Start: 06-15-2023 Taking patient vital signs [facility] Start: 06-15-2023 Vital signs measurements [facility] Start: 06-15-[address] [facility] Start: 06-15-2023 Medication education [facility] Start: 05-04-2023 Anesth open/surg arthrs total knee arthroplasty ANESTH KNEE ARTHROPLASTY [facility] Start: 05-04-2023 Arthrp kne condyle&platu medial&lat compartments TOTAL KNEE ARTHROPLASTY [facility] Start: 05-04-2023 Injection aa&/strd femoral nerve NJX AA&/STRD FEMORAL NRV IMG [facility] Start: 05-04-2023 Radiologic examination of knee Knee 1 or [address] [facility] Start: 05-04-2023 XR Knee 1 or [address] [facility] Start: 05-04-2023 Application of ice collar, cap or bag [facility] Start: 05-04-[address] [facility] Start: 05-04-2023 Incentive spirometry [facility] Start: 05-04-2023 Neurovascular assessment [facility] Start: 05-04-2023 Patient discharge [facility] Start: 05-04-2023 Patient education [facility] Start: 05-04-2023 Provision of activity privileges [facility] Start: 05-04-2023 Referral to service [facility] Start: 05-04-2023 Vital signs measurements [facility] Start: 05-04-2023 Wound care [facility] Start: 05-04-[address] [facility] Start: 05-04-2023 Recommendation to continue with treatment [facility] Start: 05-12-2022 Patient referral [facility] Work Phone: MG Breast - bilatera l Screening [facility] Work Phone: MG Breast - bilatera l Screening [facility] Patient referral [facility] Work Phone: US Pelvis [facility] US Pelvis transvaginal [facility] Immunizations Immunization Date Immunization Notes Care Provider [facility] 05-31-2024 influenza, injectabl e, madin hugo canine kidney, preservative free Dr. Anuja Lorenzana MD Work Phone: [facility] 07-17-2022 Covid Pfizer Bivalen t Booster Dr. Anuja Lorenzana Work Phone: [facility] 01-23-2022 Covid (Pfizer) Dr. Anuja Lorenzana Work Phone: [facility] 08-25-2021 Covid (Pfizer) Dr. Anuja Lorenzana Work Phone: [facility] 12-31-2020 Covid (Pfizer) Dr. Anuja Lorenzana Work Phone: [facility] 12-10-2020 Covid (Pfizer) Dr. Anuja Lorenzana Work Phone: [facility] 05-25-2016 influenza, injectabl e, quadrivalent, preservative free Dr. Anuja Lorenzana Work Phone: [facility] Payers Date Payer Category Payer Self-pay [id number] 2023 Unknown [id number] Unknown [id number] 2.16.8 [id number] Unknown [id number] 2.16.8 40.1.487353.3.579.2.462 Unknown [id number] 2.16.8 40.1.209401.3.579.2.462 Unknown [id number] 2.16.8 40.1.939943.3.579.2.462 Unknown [id number] 2.16.8 40.1.505010.3.579.2.462 Unknown [id number] 2.16.8 40.1.854025.3.579.2.462 Unknown [id number] 2.16.8 40.1.006538.3.579.2.462 Unknown [id number] 2.16.8 40.1.566454.3.579.2.462 Unknown [id number] 2.16.8 40.1.990127.3.579.2.462 Unknown [id number] 2.16.8 40.1.327688.3.579.2.462 Unknown [id number] 2.16.8 40.1.355560.3.579.2.462 Unknown [id number] 2.16.8 40.1.624036.3.579.2.462 Unknown [id number] 2.16.8 40.1.194965.3.579.2.462 Unknown [id number] 2.16.8 40.1.460105.3.579.2.462 Unknown [id number] 2.16.8 40.1.293852.3.579.2.462 Unknown [id number] 2.16.8 40.1.552649.3.579.2.462 Unknown [id number] 2.16.8 40.1.728801.3.579.2.462 Unknown [id number] 2.16.8 40.1.299312.3.579.2.462 Unknown [id number] 2.16.8 40.1.143753.3.579.2.462 Unknown [id number] 2.16.8 40.1.307966.3.579.2.462 Unknown [id number] 2.16.8 40.1.078491.3.579.2.462 Unknown [id number] 2.16.8 40.1.627877.3.579.2.462 Unknown [id number] 2.16.8 40.1.475357.3.579.2.462 Social History Date Type Detail Facility Start: 05-12-2022 End: 08-13-2023 Tobacco smoking status NHIS Unknown if ever smoked [facility] Start: 1965 Sex Assigned At Female [facility] Start: 03-08-2024 Tobacco smoking status NHIS Never smoked tobacco (finding) [facility] NEGATED: Highlighted row [facility] Medical Equipment Procedure Code Equipment Code Equipment Origin al Text Equipment Identifier Dates ([id number]) Metal-backed pat ila prosthesis ()[id number] FDA Start: 05-04-2023 ([id number]) Coated knee tibi a prosthesis ()[id number] [id number] FDA Start: 05-04-2023 ([id number]) Coated knee femu r prosthesis ()[id number] [id number] FDA Start: 05-04-2023 ([id number]) Tibial insert ()[id number] FDA Start: 05-04-2023 asymmetric patella FDA Start: 03-21-2024 cruciate retaini ng femoral FDA Start: 03-21-2024 tibial bearing insert FDA Start: 03-21-2024 tibial component FDA Start: 03-21-2024 Goals Date Patient Goal Desired Activity /State Mental Status Date Assessment Result Facility 06-15-2023 Cognitive function Voice/Name [facility] Work Phone: 05-04-2023 Cognitive function Touch/Shaking [facility] Work Phone: 05-04-2023 Cognitive function Patient Orien tation Person;Place;Time [facility] Work Phone: Clinical Notes 10-26-2022 to 03-21-2024 Note Date & Type Note Facility 03-21-2024 Note [facility] Medical Records Department [address] [place] [id number] History Physical Exam 03/21/24 0710 MR#: [id number] Acct: [id number] Name: CHERYLE VALENTIN Rep #: [id number] : 1965 58 From: Ike Mo DO PCP: Dr. Anuja Lorenzana MD Status:[facility] Location: [place] [address] History and Physical Date of Admission: 03/21/24 [facility] [address] [place] [address] OFFICE VISIT Date of Service: 02/16/24 MR#: [id number] Acct: [id number] Name: CHERYLE VALENTIN Rep #: [id number] : 1965 Provider: Dr. Ike Mo DO Age/Sex: 58/F Location: [facility] Status: Signed Intake Vital Signs 06/15/2313:39 Height 5 ft 5.5 in Intake Visit Reasons: LEFT KNEE Accompanied by: Self Is patient in pain?: Yes Allergies No Known Allergies Allergy (Verified 02/16/24 10:46) Medications ???Medication ???Instructions ???Recorded ???Confirmed ???Type acetaminophen 500 mg tablet 1,000 mg (2 x 500 mg) PO Q6H PRN 05/04/23 02/16/24 Rx #100 tabs PFSH Medical History Alcohol use Arthritis Colon cancer screening Heartburn History of edema History of pain when walking Leg cramps Non-smoker Post-menopausal Wears glasses Wears partial dentures Surgical History H/O: Hx of total knee arthroplasty Family History Mother DiabetesBrother DiabetesOther Arthritis Social History household members: spouse housing: house number of children: 2 current occupational status: employed Smoking Status: Never smoker alcohol intake: current alcohol intake frequency: holidays/special occasions only Alcohol type: wine substance use type: does not use what type of physical activity do you participate in: none seatbelt use: always do you feel safe at home: Yes additional social history: MAURICE GAMBLE LEFT KNEE Details: This documentation accurately reflects the service provided and the decisions made by me, Dr. Ike Mo, DO 02/16/24 0816. Part of today???s visit was documented by Francheska Berry, acting as scribe. CHERYEL VALENTIN is a 58 year old F here today for left knee. Patient states that she continues to have pain over her lateral knee. She complains fo stiffness. She has difficulty ambulating due to her pain. She notes that her pain travels into her lateral calf and her calf is very hard. She has a knee brace which she wears at all times, except for sleeping. She had a left knee injection on 12/13/23 which was helpful for a few weeks. Patient takes tylenol for pain. Ortho Exam General General: Yes no acute distress Neurologic: Yes alert and Yes oriented x3 Psychologic: Yes reasonable and appropriate Right Knee Patella Translation: 1 Left Knee Skin/Wound: Yes CDI, No ecchymosis, No erythema and Yes swelling 1+: Effusion Knee ROM: Yes ROM-Extension -20 to 0 (-12) and Yes ROM-Flexion 0-140 (105) Examination: Yes med jt line tenderness, Yes Lat jt line tenderness and Yes Crepitus Stability: NML: Anterior Drawer, NML: Valgus 0, NML: Valgus 30, NML: Varus 0 and NML: Varus 30 Patella Translation: 1 KNEE: no calf pain, negative homans, normal sensation to light palpation, good ankle range of motion Head: Normocephalic Atraumatic Chest: symmetrical rise, non-labored breathing, no audible wheeze Abdomen: no guarding, non-rigid Supplemental Info 2023 x-ray left knee: Advanced tricompartmental DJD, worse medial compartment 06/15/2023 manipulation under anesthesia right knee 06/14/2023 x-ray right knee: Status post press-fit total knee arthroplasty 05/04/2023 right total knee arthroplasty: Dr. Mo 09/30/2020 x-ray bilateral knees advanced tricompartmental knee arthrosis [id number] medial compartment with varus deformity Coding Level of Care Code Off vis,est,level 4 Diagnoses Primary osteoarthritis of left knee M17.12 Osteoarthritis type: primary Assessment and Plan Assessment and Plan (1) Left knee DJD: Status: Acute Qualifiers: Osteoarthritis type: primary Qualified Code(s): M17.12 - Unilateral primary osteoarthritis, left knee Orders: Orders Knee 4 or More Views Today M17.12 - Unilateral primary osteoarthritis, left knee Plan Cheryle is a pleasant 58-year-old female who we previously performed a right total knee arthroplasty on who did very well with that she is happy she had a performed although she did have (more content not included)... [facility] 06-15-2023 Procedure note [facility] 05-04-2023 Procedure note [facility] 05-04-2023 Discharge summary Note Date/Time May 04, 2023 10:12am [facility] Medical Records Department [address] [place] [address] Instructions for Home/Discharge Instructions 05/04/23 1011 MR#: [id number] Acct: [id number] Name: CHERYLE VALENTIN Rep #:[id number] : 1965 57 From: Ike Mo DO PCP: Dr. Anuja Lorenzana MD Status:[facility] Discharge Instructions Diet Discharge Diet: No restrictions (Limit sweets and carbs as high sugar diet can increase risk of infection) Activity Weight Bearing Status: Weight bearing as tolerated Dressing / Incision Call your doctor if you observe: Shortness of breath and Chest pain Additional Dressing/Incision Instructions:: Ice and elevate lower extremities 2 weeks while not ambulating. Ambulation is encouraged. Weight bearing as tolerated. Use assistive devise for stability. Encourage FULL knee extension and flexion 1 time EVERY time you get up and down and MULTIPLE times per day. No showering 72 hours after surgery. Begin showering postop day #3. Remove the dressing prior to shower and gently wash with warm water and antibacterial soap then pat dry and place abdominal pad (or plain gauze) and EMILY hose over top. This is to be done daily. Do not submerge for 3 weeks. If not showering daily after the initial 72 hours then you must clean incision and change dressing daily. Do not allow animals near the incision area. Keep clean. Follow anti-coagulation recommendations as prescribed. Do not take any NSAIDs while on blood thinner. Do not take any additional narcotic pain medication other than what was prescribed on your surgery day without discussing with physician. Narcotic medication can be addictive. Do not drink alcohol while taking narcotics. Supplement narcotic prescription with acetaminophen 1000 mg 4 times aday. Start physical therapy. If you are not currently scheduled for physical therapy or you are unsure of appointment time please call office [facility] to arrange. Call Dr. Mo with any concerns. Follow Up Care Please Follow Up With: Ike Mo DO When: 2 weeks Test Results: Test results from this visit will be discussed in further detail at your follow-up appointment, if applicable. Discharge Plan Admission Primary Reason for Your Visit: Right total knee arthroplasty Attending Provider: Ike Mo Primary Care Provider: Anuja Lorenzana Discharge Orders/Prescriptions Prescriptions: New acetaminophen [acetaminophen] 500 mg tablet 1,000 mg PO Q6H PRN Qty: 100 0RF cephalexin [cephalexin] 500 mg capsule 1,000 mg PO Q8 Qty: 4 0RF Rx Instructions: take 2 tabs at 9:00 pm and 2 tabs after 5 am when you wake up Eliquis 2.5 mg tablet 2.5 mg PO BID Qty: 28 0RF oxycodone 5 mg tablet 5 - 10 mg PO Q4H PRN (Reason: pain) 7 Days Qty: 60 0RF Continued glucosamine HCl 500 mg tablet 500 mg tablet 500 mg PO BID triamcinolone acetonide [Kenalog] 40 mg/mL suspension 80 mg INTRAARTIC ONCE Qty: 2 0RF estradiol 0.01 % (0.1 mg/gram) cream See Rx Instructions vaginal .COMPLEX Qty: 42.5 2RF Rx Instructions: small amount as directed vaginal every other day X 4 weeks then twice a week; Discontinued naproxen sodium [Aleve] 220 mg capsule 220 mg PO BID PRN (Reason: pain) Referrals / Follow Up: Anuja Lorenzana MD [Primary Care Provider] - Disposition Disposition (needs filled in before D/C Order can be placed): Home, Self Care 05/04/23 1015<Electronically signed by Ike Mo DO>Ike Peralesfort duchesne CC: Dr. Anuja Lorenzana MD ~ Signed [facility] Work Phone: 1(399) 818-954609-12-2023 History and physical note Author [facility] May 04, 2023 7:05am Note Date/Time May 04, 2023 7:05am [facility] Medical Records Department [address] [place] [address] History & Physical Exam 05/04/23 0704 MR#: [id number] Acct: [id number] Name: CHERYLE VALENTIN Rep #:[id number] : 1965 57 From: Ike Mo DO PCP: Dr. Anuja Lorenzana MD Status:R [facility] Location: [place] [address] History and Physical Date of Admission: 05/04/23 [facility] [address] [place] [address] [place] [address] OFFICE VISIT Date of Service: 04/02/23 MR#: [id number] Acct: [id number] Name: CHERYLE VALENTIN Rep #: [id number] : 1965 Provider: Dr. Ike Mo DO Age/Sex: 57/F Location: [facility] [place].[facility] Status: Signed Intake Vital Signs 12/24/2310:11 04/02/2310:58 Height 5 ft 3.5 in 5 ft 3.5 in Weight: 208 lb 208 lb BMI 36.2 36.2 BP 145/85 H Intake Visit Reasons: BL KNEES Chief Complaint: bilateral knee pain Is patient in pain?: Yes (bilateral knees) Pain scale (1-10): 9 Allergies No Known Allergies Allergy (Verified 04/02/23 10:59) Medications glucosamine HCl 500 mg tablet 500 mg PO BID 12/29/17 [History Confirmed 12/24/22] naproxen sodium 220 mg capsule (Aleve) 220 mg PO BID PRN 05/12/22 [History Confirmed 12/24/22] estradiol 0.01% (0.1 mg/gram) vaginal cream See Rx Instructions vaginal .COMPLEX#42.5 grams 11/09/22 [Rx Confirmed 12/24/22] PFSH Medical History Arthritis Colon cancer screening Surgical History H/O: Family History Mother DiabetesBrother DiabetesOther Arthritis Social History household members: spouse housing: house number of children: 2 current occupational status: employed Smoking Status: Never smoker alcohol intake: current alcohol intake frequency: holidays/special occasions only Alcohol type: wine substance use type: does not use what type of physical activity do you participate in: none seatbelt use: always do you feel safe at home: Yes additional social history: MAURICE PAVON [facility] BL KNEES Chief Complaint: bilateral knee pain Details: Parts of this documentation were recorded by a scribe, this documentation accurately reflects the service provided and the decisions made by me, Dr. Ike Mo, 04/02/23 1054. CHERYLE VALENTIN is a 57 year old F here today for bilateral knee pain. Her left is worse at this time.She had bilateral knee steroid injections 01-01-23 which were effective for about 2 months. She advises her knees continue to pop, click and occasionally will give out. She continues to take aleve, apply ice andbio-freeze to help with pain. Ortho Exam General General: Yes no acute distress Neurologic: Yes alert and Yes oriented x3 Psychologic: Yes reasonable and appropriate Right Knee Skin/Wound: Yes CDI, No erythema, No ecchymosis and No swelling Knee ROM: Yes ROM-Extension -20 to 0 (-10) and Yes ROM-Flexion 0-140 (108) Examination: Yes Med jt line tenderness and Yes Lat jt line tenderness Stability: NML: Anterior Drawer, NML: Posterior Drawer, NML: Valgus 30 and NML: Varus 30 Patella Translation: 1 Left Knee Skin/Wound: Yes CDI, No ecchymosis, No erythema and Yes swelling 1+: Effusion Knee ROM: Yes ROM-Extension -20 to 0 (-8) and Yes ROM-Flexion 0-140 (114) Examination: Yes med jt line tenderness and Yes Lat jt line tenderness Stability: NML: Anterior Drawer, NML: Posterior Drawer, NML: Valgus 30 and NML: Varus 30 Patella Translation: 1 KNEE: good ankle range of motion. no ankle pain. good pulses 2/4 Head: Normocephalic Atraumatic Chest: symmetrical rise, non-labored breathing, no audible wheeze Abdomen: no guarding, non-rigid Supplemental Info 09/30/2020 x-ray bilateral knees advanced tricompartmental knee arthrosis [id number] medial compartment with varus deformity Coding Level of Care Code Off vis,est,level 3 Diagnoses Primary osteoarthritis of left knee M17.12 Osteoarthritis type: primary Primary osteoarthritis of right knee M17.11 Osteoarthritis type: primary Assessment and Plan Assessment and Plan (1) Left knee DJD: Status: Acute Qualifiers: Osteoarthritis type: primary Qualified Code(s): M17.12 - Unilateral primary osteoarthritis, left knee (2) Right knee DJD: Status: Acute Qualifiers: Osteoarthritis type: primary Qualified Code(s): M17.11 - Unilateral primary osteoarthritis, right knee Plan Spoke with the patient about the anatomy of the knee and etiology of her pain. Spoke with her about having osteoarthritis of her knees. Explained her options- viscosupplementation injections vs a total knee arthroplasty. Spoke with the patient about the surgery procedure, risks and recovery. Explained the risk of stiffness and the importance of physical therapy. She might have a mechanical feel post op. Spoke with her about the lengthy time it takes to fully heal and she likely will be happy around 3 months but will take 2 years to fully recover.She will need medical clearance. Spoke with her about the iovera procedure. Explained the procedure helps with the surgery pain and decreases narcotic use post op. She will need a CT scan of her right knee. Risks, benefits and alternatives of surgery reviewed including but not limited to bleeding, infection, nerve, artery and/or tissue damage, fracture, VTE, mechanical feel ofthe knee, continued pain, stiffness and expected post-operative course. Patient wanted to have the surgery on her right knee. She wanted to have visco injections on her left knee. Follow up for iovera or sooner if pain, swelling, numbness or associated symptoms, or concerns develop. All questions answered. Patient in agreement of plan. 04/02/23 112 <Electronically signed by Ike Mo DO> Date Ike Mo DO Cosigner Signature: Date (if applicable) CC: ~ I have examined the patient and the H&P has been reviewed. There are no clinicalchanges since date of exam. 05/04/23 0705 <Electronically signed by Ike Mo DO> Cosigner Signature (if applicable): CC: Dr. Anuja Lorenzana MD; Dr. Ike Mo DO~ Signed [facility] Work Phone: 1(506) 583-505103-06-2023 NotePap Smear Specimen AdequacyMarch 2022 1:56pmComment.Satisfactory for evaluation. No endocervical component is identified.[facility] A#[id number] Bethesda Butler HospitalComment on above:Satisfactory for evaluation. No endocervical component is identified. 10-26-2022 NotePap Smear Specimen AdequacyMarch 2022 1:56pmComment. Satisfactory for evaluation. No endocervical component is identified.[facility] A#[id number] Bethesda Butler HospitalComment on above:Satisfactory for evaluation. No endocervical component is identified.10-26-2022 NotePap Smear Specimen AdequacyMarch 2022 1:56pmComment.Satisfactory for evaluation. No endocervical component is identified.[facility] A#[id number] Health St. Anne HospitalComment on above:Satisfactory for evaluation. No endocervical component is identified.Discharge summary Author Ike Mo [facility] June 15, 2023 3:00pm Note Date/Time June 15, 2023 3 :00pm [facility] Medical Records Department [address] [place] [address] Instructions for Home/Discharge Instructions 06/15/23 1459 MR#: [id number] Acct: [id number] Name: CHERYLE VALENTIN Rep #:[id number] : 1965 57 From: Ike Mo DO PCP: Dr. Anuja Lorenzana MD Status:R [facility] Discharge Instructions Diet Discharge Diet: No restrictions Dressing / Incision Call your doctor if you observe: Shortness of breath and Chest pain Additional Dressing/Incision Instructions:: Encourage full knee flexion and extension regularly. Start physical therapy immediately. May shower and returnto activities as normal. Keep pain controlled with medications as discussed with Dr. Mo in order to keep full range of motion. Call if you need more pain medication. ice and elevate next 72 hours. Follow-up with Dr. Mo and call with any questions or concerns. Follow Up Care When: 4 weeks Test Results: Test results from this visit will be discussed in further detail at your follow- up appointment, if applicable. Discharge Plan Admission Primary Reason for Your Visit: Manipulation under anesthesia of right knee Attending Provider: Ike Mo Primary Care Provider: Anuja Lorenzana Discharge Orders/Prescriptions Prescriptions: No Action oxycodone-acetaminophen 5-325 mg tablet 1 tab PO DAILY PRN (Reason: pain) acetaminophen [acetaminophen] 500 mg tablet 1,000 mg PO Q6H PRN Qty: 100 0RF Referrals / Follow Up: Anuja Lorenzana MD [Primary Care Provider] - Disposition Disposition (needs filled in before D/C Order can be placed): Home, Self Care 06/15/23 1500<Electronically signed by Ike Mo DO>Ike Mo DO CC: Dr. Anuja Lorenzana MD ~ Signed [facility] Work Phone: Evaluation note* Diagnosis Onset Date Resolution Status Colon cancer screening acute Preventative health care acu te [facility] Work Phone: Evaluation note* Diagnosis Onset Date Resolution Status Encounter for routine gynecological examination noneactive [facility] Work Phone: Evaluation note* Diagnosis Onset Date Resolution Status Encounter for routine gynecological examination noneactive Atrophic vaginitis acute Postmenopausal bleeding acut e [facility] Work Phone: Evaluation note* Diagnosis Onset Date Resolution Status Left knee DJD acute Right knee DJD acute Left knee DJD acute Right knee DJD acute Left knee DJD acute Right knee DJD acute Left knee DJD acute [facility] Work Phone: Evaluation note* Diagnosis Onset Date Resolution Status Left knee DJD acute Right knee DJD acute Left knee DJD acute Right knee DJD acute Left knee DJD acute Right knee DJD acute Preoperative clearance nonea ctive Mixed hyperlipidemia noneact rosa isela Prediabetes noneactive Left knee DJD acute [facility] Work Phone: Evaluation note* Diagnosis Onset Date Resolution Status Left knee DJD acute Right knee DJD acute Left knee DJD acute Right knee DJD acute Left knee DJD acute Right knee DJD acute Preoperative clearance nonea ctive Mixed hyperlipidemia noneact rosa isela Prediabetes noneactive Left knee DJD acute Orthopedic aftercare acute Arthrofibrosis of knee joint acute Orthopedic aftercare acute Other acute postprocedural pain acute Stiffness of right knee none active [facility] Work Phone: Evaluation note* Diagnosis Onset Date Resolution Status Orthopedic aftercare acute Left knee DJD acute [facility] Work Phone: Evaluation noteNo assessment information available [facility] Work Phone: History and physical note Author Ike [facility]WV[facility]ed[facility] June 15, 2023 2:39pm Note Date/Time June 15, 2023 2 :38pm [facility] Medical Records Department [address] [place] [address] History & Physical Exam 06/15/23 1436 MR#: [id number] Acct: [id number] Name: CHERYLE VALENTIN Rep #:[id number] : 1965 57 From: Ike Mo DO PCP: Dr. Anuja Lorenzana MD Status:R [facility] [place] Location: [place] [address] History and Physical Date of Admission: 06/15/23 [facility] [address] [place] [address] [address] [place] [address] OFFICE VISIT Date of Service: 06/14/23 MR#: [id number] Acct: [id number] Name: CHERYLE VALENTNI Rep #: [id number] : 1965 Provider: Dr. Ike Mo DO Age/Sex: 57/F Location: [facility] [place] Status: Signed Intake Vital Signs 04/02/2310:58 05/04/2306:48 Height 5 ft 3.5 in 5 ft 5 in Intake Visit Reasons: right knee Chief Complaint: R knee post op f/u Is patient in pain?: Yes Pain scale (1-10): 1 Allergies No Known Allergies Allergy (Verified 06/14/23 09:58) Medications glucosamine HCl 500 mg tablet 500 mg PO BID 12/29/17 [History Confirmed 06/14/23] estradiol 0.01% (0.1 mg/gram) vaginal cream See Rx Instructions vaginal .COMPLEX#42.5 grams 11/09/22 [Rx Confirmed 06/14/23] acetaminophen 500 mg tablet 1,000 mg (2 x 500 mg) PO Q6H PRN #100 tabs 05/04/23 [Rx Confirmed 06/14/23] cephalexin 500 mg capsule 1,000 mg (2 x 500 mg) PO Q8 #4 caps 05/04/23 [Rx Confirmed 06/14/23] PFSH Medical History Alcohol use Arthritis Colon cancer screening Heartburn History of edema Leg cramps Non-smoker Post-menopausal Wears glasses Wears partial dentures Surgical History H/O: Hx of total knee arthroplasty Family History Mother DiabetesBrother DiabetesOther Arthritis Social History household members: spouse housing: house number of children: 2 current occupational status: employed Smoking Status: Never smoker alcohol intake: current alcohol intake frequency: holidays/special occasions only Alcohol type: wine substance use type: does not use what type of physical activity do you participate in: none seatbelt use: always do you feel safe at home: Yes additional social history: MAURICE GAMBLE right knee Details: Parts of this documentation were recorded by a scribe, this documentation accurately reflects the service provided and the decisions made by me, Dr. Ike Mo, DO 06/14/23 0800. CHERYLE VALENTIN is a 57 year old F here today for 6 week f/u from Rt total knee arthroplasty. Pt rates her pain a 2/10 and is only taking Tylenol prior to PT. Pt has 4 more session of physical therapy to get to 120 degres. Ortho Exam General General: Yes no acute distress Neurologic: Yes alert and Yes oriented x3 Psychologic: Yes reasonable and appropriate Right Knee Skin/Wound: No erythema, No ecchymosis and No swelling Knee ROM: No ROM-Extension -20 to 0 (12), No ROM-Flexion 0-140 (80) and Yes ROM-Passive Flexion 0-140 (lacking 10) Stability: NML: Valgus 0, NML: Valgus 30, NML: Varus 0 and NML: Varus 30 Head: Normocephalic Atraumatic Chest: symmetrical rise, non-labored breathing, no audible wheeze Abdomen: no guarding, non-rigid Supplemental Info 06/14/2023 x-ray right knee: Status post press-fit total knee arthroplasty 09/30/2020 x-ray bilateral knees advanced tricompartmental knee arthrosis [id number] medial compartment with varus deformity Coding Level of Care Code Global Post Op Diagnoses Orthopedic aftercare Z47.89 Stiffness of right knee M25.661 Fibrosis of right knee joint M24.661 Laterality: right Other acute postprocedural pain G89.18 Assessment and Plan Assessment and Plan (1) Orthopedic aftercare: Status: Acute (2) Stiffness of right knee: (3) Arthrofibrosis of knee joint: Status: Acute Qualifiers: Laterality: right Qualified Code(s): M24.661 - Ankylosis, right knee (4) Other acute postprocedural pain: Status: Acute Orders: Orders Knee 4 or More Views Today Z47.89 - Encounter for other orthopedic aftercare Plan Patient is 6 weeks out from total knee arthroplasty her pain is doing well however she has not progressed as we would have hoped in terms of her range of motion she is lacking in both flexion and extension. Discussed a manipulation under anesthesia with intra-articular knee injection due to her lack of motion and discussed and pain medication post manipulation. Discussed risks of manipulation including fracture and increased pain. Follow-up 4 weeks postop resume physical therapy immediately after manipulation. Patient states she has enough oxycodone and does not need another prescription at this time follow-up sooner if pain, swelling, numbness or associated symptoms, or concerns develop. All questions answered. Patient in agreement of plan. 06/14/23 1137 <Electronically signed by Ike Mo DO> Date Ike Mo DO Cosigner Signature: Date (if applicable) CC: ~ I have examined the patient and the H&P has been reviewed. There are no clinicalchanges since date of exam. 06/15/23 1439 <Electronically signed by Ike Mo DO> Cosigner Signature (if applicable): CC: Dr. Anuja Lorenzana MD; Dr. Ike Mo DO~ Signed [facility] Work Phone: Hospital Discharge instructionsAmbulatory Orders* Dermatology Location: None Selected * Gastroenterology Location: None Selected * PART TIME RECEPTIONIST Location: None Selected [facility] Work Phone: Hospital Discharge instructionsAmbulatory Orders* BMV Disability Parking Location: None Selected [facility] Work Phone: Hospital Discharge instructionsAmbulatory Orders* Gastroenterology Location: None Selected [facility] Work Phone: Summary Purpose Family History No Family History Records Found Relationship Condition Age at Onset Recorded Date/T brian Not Specified Arthritis Unknown mother Diabetes mellitus Unknown brother Diabetes mellitus Unknown Advance Directives No Advanced Directives Records Found Advance Directive Response Recorded Date/ Time Living Will No April 23 9:27am Power of Amusement Park Worker No April 23, 2023 9:27am Advance Directive Response Recorded Date/ Time Living Will No June 14 2:45pm Power of Amusement Park Worker No June 14, 2023 2:45pm Chief Complaint and Reason for Visit Chief Complaint Amb Documentation CORRECTIONAL SUPERVISOR, EST. CARE, WE HAVE NPP Reason for Visit Colon cancer screeni Preventative health care Chief Complaint Annual (SAMPLE CHECKER) PAP SCREENING Reason for Visit Encounter for routin e gynecological examination Chief Complaint Annual (SAMPLE CHECKER) PAP SCREENING EMB Reason for Visit Encounter for routin e gynecological examination Atrophic vaginitis Postmenopausal bleeding Chief Complaint Annual (SAMPLE CHECKER) PAP SCREENING EMB AUB Reason for Visit Encounter for routin e gynecological examination Atrophic vaginitis Postmenopausal bleeding Chief Complaint BLAT KNEES BL KNEES LEFT KNEE M17.11 Unilateral primary osteoarthritis, right kn LEFT KNEE Reason for Visit Left knee DJD Right knee DJD Left knee DJD Right knee DJD Left knee DJD Right knee DJD Left knee DJD Chief Complaint BL KNEES LEFT KNEE M17.11 Unilateral primary osteoarthritis, right kn LEFT KNEE SURGERY CLEARANCE LEFT KNEE Right knee arthroplasty robotic ass Right knee arthroplasty robotic ass Reason for Visit Left knee DJD Right knee DJD Left knee DJD Right knee DJD Left knee DJD Right knee DJD Preoperative clearance Mixed hyperlipidemia Prediabetes Left knee DJD Chief Complaint BL KNEES LEFT KNEE M17.11 Unilateral primary osteoarthritis, right kn LEFT KNEE SURGERY CLEARANCE LEFT KNEE Right knee arthroplasty robotic ass Right knee arthroplasty robotic ass right knee right knee Room [address] VASQUEZ LUCAS Reason for Visit Left knee DJD Right knee DJD Left knee DJD Right knee DJD Left knee DJD Right knee DJD Preoperative clearance Mixed hyperlipidemia Prediabetes Left knee DJD Orthopedic aftercare Arthrofibrosis of knee joint Orthopedic aftercare Other acute postprocedural pain Stiffness of right knee Chief Complaint R TKA DR OVALLE FAX RIGHT KNEE RIGHT KNEE Reason for Visit Orthopedic aftercare Left knee DJD Chief Complaint Admit Date FU January 19, 2025 10:57 am Additional Source Comments INFORMATION SOURCE (unrecogn ized section and content) DATE CREATED AUTHOR 09/01/2019 [facility] DATE CREATED AUTHOR AUTHOR'S ORGANIZ ATION 01/24/2025 [facility] Goals (unrecognized section and content) Goals may be documented in a n alternate sectionGoals may be documented in an alternate sectionGoals may be documented in an alternate sectionGoals may be documented in an alternate sectionGoals may be documented in an alternate sectionGoals may be documented in an alternate sectionGoals may be documented in an alternate section Care Teams (unrecognized sec tion and content) Team Status: Active Member Role Status Dates Dr. Gary Sahu DO Family Provider Active Dr. Anuja Lorenzana MD Primary Care Provider Active Team Status: Inactive Member Role Status Dates Dr. Anuja Lorenzana MD Primary Care Provider, Refer ring Provider Active Tessa Overton CORRECTIONAL SUPERVISOR, CORRECTIONAL SUPERVISOR-C Attending Provider Active Team Status: Inactive Member Role Status Dates Dr. Anuja Lorenzana MD Primary Care Provider, Atten ding Provider Active Team Status: Inactive Member Role Status Dates Dr. Anuja Lorenzana MD Primary Care Provider Active Tessa Overton CORRECTIONAL SUPERVISOR, CORRECTIONAL SUPERVISOR-C Attending Provider, Referring Provider Active Team Status: Inactive Member Role Status Dates Dr. Anuja Lorenzana MD Primary Care Provider Active Tessa Overton CORRECTIONAL SUPERVISOR, CORRECTIONAL SUPERVISOR-C Attending Provider Active Team Status: Inactive Member Role Status Dates Dr. Anuja Lorenzana MD Primary Care Provider, Refer ring Provider Active Dr. Ike Mo DO Attending Provider Active Team Status: Inactive Member Role Status Dates Dr. Anuja Lorenzana MD Primary Care Provider Active Dr. Ike Mo DO Attending Provider, Referring Provider Active Team Status: Inactive Member Role Status Dates Dr. Anuja Lorenzana MD Primary Care Provider, Refer ring Provider Active Dr. Chel Canales MD Attending Provider Active Team Status: Active Member Role Status Dates Dr. Anuja Lorenzana MD Primary Care Provider Active Dr. Ike Mo DO Attending Provid er, Referring Provider, Other Provider Active Team Status: Inactive Member Role Status Dates Dr. Anuja Lorenzana MD Primary Care Provider Active Dr. Jose G Gutierrez MD Attending Provider Active Team Status: Active Member Role Status Dates Dr. Anuja Lorenzana MD Primary Care Provider Active Dr. Ike Mo DO Attending Provider, Referring Provider Active Team Status: Inactive Member Role Status Dates Dr. Anuja Lorenzana MD Primary Care Provider Active Start: January 19, 2025 End: January 19, 2025 Dr. Anuja Lorenzana MD Attending Provider Active Start: January 19, 2025 End: January 19, 2025 Dr. Anuja Lorenzana MD Referring Provider Active Start: January 19, 2025 End: January 19, 2025 FOR RECORDS PERTAINING TO PATIENTS WHO ARE OR HAVE BEEN ENROLLED IN A CHEMICAL DEPENDENCY/SUBSTANCEABUSE PROGRAM, SOME INFORMATION MAY BE OMITTED. This clinical summary was aggregated from multiple sources. Caution should be exercised in using it in the provision of clinical care. This summary normalizes information from multiple sources, and as a consequence, information in this document may materially change the coding, format and clinical context of patient data. In addition, data may be omitted in some cases. CLINICAL DECISIONS SHOULD BE BASED ON THE PRIMARY CLINICAL RECORDS. [facility]. provides no warranty or guarantee of the accuracy or completeness of information in this document.
== END | disposition home or self-care (01) ==
LOC: OPBI 07:58
PROVIDERS: PCP Internal Medicine; Referring Provider Internal Medicine; Visit Provider Internal Medicine
DX: Z12.31 Encounter for screening mammogram for malignant neoplasm of breast (principal)
CPT/HCPCS: 77063; 77067

== ENCOUNTER 2025-06-04 05:39 | Day surgery (SDC) | payer BC, SELFPAY ==
[2025-06-04] VITALS (8 sets, daily range): BP systolic 88–130; BP diastolic 56–79; PULSE 55–74; RESP 16–18; TEMP 36.4–37.3; O2SAT 95–100; BMI 33.7
[2025-06-04] MEDS: Lactated Ringers 1,000 ML 15 ML IV (06:37)
--- NOTE | 2025-06-04 06:37 | PCM.HP.STD ---
HPI - General General Date of Admission: 06/04/25 Date of Service: 06/04/25 Chief Complaint: Screening colonoscopy HPI Narrative JEREMIAS VALENTIN, is a 59 F who presents [today for screening colonoscopy. She had a colonoscopy approximately 10 years ago and it was normal. She does not have any abdominal pain, cramping, chest pain or shortness of breath. Overall she is in very good health.] [facility] Medical History Health care maintenance Bilateral carpal tunnel syndrome Flu vaccine need Preoperative evaluation to rule out surgical contraindication Borderline type 2 diabetes mellitus Hypertension History of pain when walking Post-menopausal Wears glasses Wears partial dentures Alcohol use Heartburn Non-smoker History of edema Colon cancer screening Arthritis Home Medications ?Medication ?Instructions ?Recorded ?Last Taken ?Type acetaminophen 500 mg tablet 500 mg PO Q6H PRN pain 07/28/24 Unknown History (Tylenol Extra Strength) Allergy/AdvReac Type Severity Reaction Status Date / Time No Known Allergies Allergy Verified 06/04/25 06:27 Family History Mother Diabetes Brother Diabetes Other Arthritis Surgical History Total knee replacement status Hx of total knee arthroplasty H/O: Social History household members: spouse housing: house number of children: 2 current occupational status: employed Smoking Status: Never smoker alcohol intake: current alcohol intake frequency: holidays/special occasions only Alcohol type: wine substance use type: does not use what type of physical activity do you participate in: none seatbelt use: always do you feel safe at home: Yes additional social history: [facility] Constitutional Constitutional: Denies fatigue, fever(s), poor appetite, weight gain or weight loss Gastrointestinal Gastrointestinal: Denies belching, bloating, change in bowel habits, change in stool character, chewing difficulty, coffee ground emesis, constipation, cramping, diarrhea, dyspepsia, dysphagia, early satiety, excessive flatus, fecal incontinence, heartburn, hematemesis, hematochezia, hemorrhoids, loose stools, melena, nausea, odynophagia, rectal bleeding, tenesmus, vomiting or weight changes Vital Signs Vital Signs Vital Signs: 06/04/25 06:28 06/04/25 06:28 Temperature 99.2 F H Temperature Source Temporal Pulse Rate 74 Respiratory Rate 16 Respiratory Pattern Normal Blood Pressure 130/79 H Blood Pressure Mean 96 Blood Pressure Source Monitor Blood Pressure Position Semi-Fowlers Blood Pressure Location Right Arm Pulse Ox 99 Oxygen Delivery Method Room Air Weight Weight: 202 lb 9.677 oz Body Mass Index (BMI) 33.7 Physical Exam Const alert, oriented x3, no apparent distress and healthy appearing General Appearance: cooperative GI normal to inspection, nondistended, normoactive bowel sounds, soft to palpation, non-tender and non-distended Percussion: normal to percussion Rectal Exam: deferred Assessment & Plan Assessment/Plan (1) Encounter for screening colonoscopy: PLAN: She was explained alternatives, benefits, risks including, standing bleeding, infection, sepsis, perforation, need for surgery . She will have an ASA of 3.
--- NOTE | 2025-06-04 06:38 | PRE.ANES_ITS ---
ASA Classification* ASA Classification ASA Classification: 2 Assessment & Plan Anesthesia* Anesthesia Assessment Anesthesia Assessment: Discussed sedation and/or anesthesia options, risks, benefits, and alternatives with patient/parents/legal guardian/POA. Questions invited. The patient/parents/legal guardian/POA seems to understand and agrees to proceed with anesthesia plan. Reviewed the physical assessment, medical history, allergy history and patient home medications list prior to surgery/procedure/anesthetic and documented any changes. Performed airway and anesthesia risk assessments. Anesthesia Type Anesthesia Type: MAC Anesthesia Focused Assessment* Temperature: 99.2 F Pulse Rate: 74 Blood Pressure: 130/79 Respiratory Rate: 16 Pulse Ox: 99 Airway Assessment Mouth opens: >3 cm Mallampati Score: II Labs Anesthesia Preop lab: CBC WBC, (4.4-11.0) 6.7 K/mm3 02/28/24, 10: RBC, (4.2-5.4) 5.31 M/mm3 02/28/24, 10: Hgb, (12.0-15.0) 14.0 g/dL 02/28/24, 10: Hct, (37-47) 44.9 % 02/28/24, 10: Plt Count, (150-450) 294 K/mm3 02/28/24, 10:27 CHEMISTRY Potassium, (3.5-5.1) 4.3 mmol/L 02/28/24, 10: Sodium, (136-145) 138 mmol/L 02/28/24, 10: Magnesium, (1.6-2.6) 2.4 mg/dL 03/10/24, 09:39 BUN, (7-18) 12 mg/dL 02/28/24, 10:27 Creatinine, (0.55-1.02) 0.84 mg/dL 02/28/24, 10:27 Glucose, (74-106) 107 mg/dL H 02/28/24, 10:27 POC Glucose, (74-106) 122 mg/dL H 03/21/24, 11:37 COAG PT, (11.7-14.9) 13.6 SECONDS 03/10/24, 09:39 Pre-Assessment Diagnosis/Proposed Procedure Planned Operative Procedure(s): COLONOSCOPY Anesthesia History Anesthesia History - nuclear cardiology technologist: Anesthesia History - nuclear cardiology technologist Hx Hospitalization No 05/29/25 11:22 Any Problems With Anesthesia No 05/29/25 11:22 Cholinesterase deficiency No 05/29/25 11:22 You/Your Family Experience No 05/29/25 11:22 fever (hyperthermia) with Relationship Recent Exposure to Contagious No 03/21/24 06:30 Disease Does patient have nerve No 05/29/25 11:22 stimulator Patient instructed to have device shut off --Does patient have Pacemaker No 06/04/25 06:28 or ICD? When Was Last Pacemaker Check QUESTION #4 FULL TEXT: You/Your Family Experience fever (hyperthermia) with Anesthesia Last Oral Intake Last Oral intake: Last Oral Intake NPO since 02:30 06/04/25 06:28 Meds taken in AM with sips of No 06/04/25 06:28 water? Meds patient instructed to take am of surgery PONV PONV - nuclear cardiology technologist: PONV - nuclear cardiology technologist Female Yes 05/29/25 11:22 HX of Motion Sickness No 05/29/25 11:22 HX of N/V After Surgery No 05/29/25 11:22 Non-Smoker Yes 05/29/25 11:22 Duration of Surgery greater No 05/29/25 11:22 than 60 minutes Number of Risk Factors 2 05/29/25 11:22 PONV Score Moderate Risk 05/29/25 11:22 Height & Weight Height & Weight: Anesthesia: Height & Weight Height 5 ft 5 in 06/04/25 06:28 Weight: 91.9 kg 06/04/25 06:28 Body Mass Index (BMI) 33.7 06/04/25 06:28 Respiratory Assessment Respiratory Assessment - nuclear cardiology technologist: Respiratory Tract Infection Hx - nuclear cardiology technologist Hx Respiratory Tract Infection No 05/29/25 11:22 STOP Sleep Apnea STOP Sleep Apnea - nuclear cardiology technologist: STOP Sleep Apnea - nuclear cardiology technologist Hx Hypertension No 05/29/25 11:22 Hx Sleep Apnea No 05/29/25 11:22 CPAP BIPAP Do you snore loudly (louder No 05/29/25 11:22 than talking or can be heard Do you often feel tired/ No 05/29/25 11:22 fatigued/ sleepy during daytime? Has anyone observed you stop No 05/29/25 11:22 breathing during sleep? STOP Results Negative 05/29/25 11:22 QUESTION #5 FULL TEXT : Do you snore loudly (louder than talking or can be heard through closed doors)? 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 Specify any problems Hx of Preganancy in last 3 No 05/29/25 11:22 Months Nurse Filling Out Transfusion [email or web address] 05/29/25 11:22 & Questions: Date: 05/29/25 05/29/25 11:22 Time: 11:23 05/29/25 11:22 Patient unable to answer at this time (ie. confused, unrespo /Reproduction History /Reproductive History - nuclear cardiology technologist: /Reproductive Hx- nuclear cardiology technologist Hx Now Gestational Age (in weeks): EDC: Hx Hx Para Hx Section SAB No 05/29/25 11:22 Active Medications Active Medications: Current Medications Generic Name Dose Route Start Last Admin Trade Name Freq PRN Reason Stop Dose Admin Lactated Ringer's 1,000 mls @ 15 mls/hr 06/04/25 06:15 06/04/25 06:37 IV 15 mls/hr .Q48H CORNLE Administration PFSH Medical History Health care maintenance Bilateral carpal tunnel syndrome Flu vaccine need Preoperative evaluation to rule out surgical contraindication Borderline type 2 diabetes mellitus Hypertension History of pain when walking Post-menopausal Wears glasses Wears partial dentures Alcohol use Heartburn Non-smoker History of edema Colon cancer screening Arthritis Home Medications ?Medication ?Instructions ?Recorded ?Last Taken ?Type acetaminophen 500 mg tablet 500 mg PO Q6H PRN pain 12/ 06/24 Unknown History (Tylenol Extra Strength) Allergy/AdvReac Type Severity Reaction Status Date / Time No Known Allergies Allergy Verified 06/04/25 06:27 Family History Mother Diabetes Brother Diabetes Other Arthritis Surgical History Total knee replacement status Hx of total knee arthroplasty H/O: Social History household members: spouse housing: house number of children: 2 current occupational status: employed Smoking Status: Never smoker alcohol intake: current alcohol intake frequency: holidays/special occasions only Alcohol type: wine substance use type: does not use what type of physical activity do you participate in: none seatbelt use: always do you feel safe at home: Yes additional social history: [facility] Review of Systems (Anesthesia) ROS Narrative System reviewed and no additional complaints, except as documented.
--- NOTE | 2025-06-04 07:56 | OP.PROVAT_ITS ---
06/04/2025 Anuja Lorenzana MD [address] [place] [address] [place] [address] Re : Colonoscopy procedure for Cheryle Murray Dear Dr. Lorenzana This procedure was performed on Wednesday, June 04, 2025. My impressions and recommendations are as follows: Impressions : - Diverticulosis in the recto-sigmoid colon and in the sigmoid colon. - No specimens collected. Recommendations : - Discharge patient to home. - Resume previous diet. - Continue present medications. - Repeat colonoscopy in 10 years for screening purposes. My findings are described in the full procedure note, which is enclosed. If I can be of further assistance, please feel free to contact me at . Sincerely, Temo Orta, 06/04/2025 7:56:09 AM This report has been signed electronically.
--- NOTE | 2025-06-04 07:56 | OP.COLON_ITS ---
Patient Name: Cheryle Murray Procedure Date: 06/04/2025 7:27 AM Date of : 1965 Age: 59 Procedure: Colonoscopy Indications: Screening for colorectal malignant neoplasm Providers: Temo Orta DO Referring MD: Anuja Lorenzana MD Medicines: Monitored Anesthesia Care Patient Profile: This is a 59 year old female. Refer to note in patient chart for documentation of history and physical. Last Colonoscopy: more than 10 years ago. Complications: No immediate complications. Procedure: Pre-Anesthesia Assessment: - Prior to the procedure, a History and Physical was performed, and patient medications and allergies were reviewed. The patient is competent. The risks and benefits of the procedure and the sedation options and risks were discussed with the patient. All questions were answered and informed consent was obtained. Patient identification and proposed procedure were verified by the physician in the pre-procedure area. Mental Status Examination: alert and oriented. Airway Examination: normal oropharyngeal airway and neck mobility. Respiratory Examination: clear to auscultation. CV Examination: normal. Prophylactic Antibiotics: The patient does not require prophylactic antibiotics. Prior Anticoagulants: The patient has taken no anticoagulant or antiplatelet agents except for NSAID medication. ASA Grade Assessment: II - A patient with mild systemic disease. After reviewing the risks and benefits, the patient was deemed in satisfactory condition to undergo the procedure. The anesthesia plan was to use monitored anesthesia care (MAC). Immediately prior to administration of medications, the patient was re-assessed for adequacy to receive sedatives. The heart rate, respiratory rate, oxygen saturations, blood pressure, adequacy of pulmonary ventilation, and response to care were monitored throughout the procedure. The physical status of the patient was re-assessed after the procedure. After I obtained informed consent, the scope was passed under direct vision. Throughout the procedure, the patient's blood pressure, pulse, and oxygen saturations were monitored continuously. The Colonoscope was introduced through the anus and advanced to the cecum, identified by appendiceal orifice and ileocecal valve. The colonoscopy was performed without difficulty. The patient tolerated the procedure well. The quality of the bowel preparation was adequate. The ileocecal valve, appendiceal orifice, and rectum were photographed. Scope In: 7:38:54 AM Scope Withdrawal Time 0 hours 6 minutes 6 seconds Scope Out: 7:47:57 AM Total Procedure Duration Time 0 hours 9 minutes 3 seconds Findings: The perianal and digital rectal examinations were normal. A few small-mouthed diverticula were found in the recto-sigmoid colon and sigmoid colon. Non-bleeding internal hemorrhoids were found during retroflexion. The hemorrhoids were Grade I (internal hemorrhoids that do not prolapse). Impression: - Diverticulosis in the recto-sigmoid colon and in the sigmoid colon. - No specimens collected. Recommendation: - Discharge patient to home. - Resume previous diet. - Continue present medications. - Repeat colonoscopy in 10 years for screening purposes. Procedure Code(s): --- Professional --- G0121, Colorectal cancer screening; colonoscopy on individual not meeting criteria for high risk CPT copyright 2021 [employer]. All rights reserved. The codes documented in this report are preliminary and upon cnc lathe machinist review may be revised to meet current compliance requirements. Temo Orta DO 06/04/2025 7:56:09 AM This report has been signed electronically. Number of Addenda: 0 Note Initiated On: 06/04/2025 7:27 AM
--- NOTE | 2025-06-04 07:58 | PCM.POST.ANE ---
Anesthesia: Postop Eval I Current Vital Signs Temperature: 97.5 F Pulse Rate: 64 Blood Pressure: 88/58 Respiratory Rate: 16 Pulse Ox: 98 Oxygen Delivery Method: Room Air Assessment Airway patent: Yes Spontaneous unlabored respirations: Yes Mental status: Asleep nausea: No Vomiting: No Anesthesia Complication: No Fluid Hydration Crystalloid volume administer (ml): 500 Total IV fluid infused: 500 Progress Note Anesthesia document: Postop Eval 1 completed: Yes
--- NOTE | 2025-06-04 09:00 | PCM.POSTANE2 ---
Anesthesia Postop Eval I Sum Postop Eval Completion status Anesthesia document: Postop Eval 1 completed: Yes Anesthesia Postop Eval I Summary Anesthesia Postop Eval I Summary: Anesthesia Postop Eval I: Assessment Summary Airway patent Yes 06/04/25 07:59 [email or web address] Spontaneous unlabored Yes 06/04/25 07:59 [email or web address] respirations Mental status Asleep 06/04/25 07:59 [email or web address] nausea No 06/04/25 07:59 [email or web address] Vomiting No 06/04/25 07:59 [email or web address] Anesthesia Postop Eval I: Fluid Summary Crystalloid volume administer 500 06/04/25 07:59 [email or web address] (ml) Colloids volume administered ( ml) Blood Product volume administered (ml) Total IV fluid infused 500 06/04/25 07:59 [email or web address] Anesthesia Postop Eval I: Summary Notes Anesthesia Complication No 06/04/25 07:59 [email or web address] Anesthesia Complication Comment: Post-operative progress note Anesthesia: Postop Eval II Evaluation Mental status: Awake Pain Level: 0 nausea: No Vomiting: No
== END 2025-06-04 08:49 | disposition home or self-care (01) ==
LOC: EN 05:40 → AC 05:41
PROVIDERS: PCP Internal Medicine; Referring Provider Internal Medicine; Visit Provider Internal Medicine Gastroenterology
PROC: 0DJD8ZZ Inspection of Lower Intestinal Tract, Via Natural or Artificial Opening Endoscopic (ICD-10-PCS; CPT 45378; principal; 2025-06-04 07:10)
DX: Z12.11 Encounter for screening for malignant neoplasm of colon (principal); E11.9 Type 2 diabetes mellitus without complications; K57.30 Diverticulosis of large intestine without perforation or abscess without bleeding; K64.0 First degree hemorrhoids; I10 Essential (primary) hypertension
CPT/HCPCS: 45378; J2405